=== PATIENT | male | born 1950 | race Caucasian/White ===

== ENCOUNTER 2016-06-28 20:19 | Inpatient (IN) ==
[2016-06-28] MEDS ORDERED: 0.9 % Sodium Chloride 500 ML IV ONE (20:42)
[2016-06-28] MEDS: 0.9 % Sodium Chloride 1,000 ML IVC SCH ×2 (20:51→21:40)
[2016-06-28 20:56] LABS: Bilirubin,Urine Moderate (Negative); Blood,Urine Moderate (Negative); Glucose,Urine (UA) Normal (Normal); Ketones,Urine Trace mg/dL (Negative); Leukocyte Esterase,Urine Small (Negative); Nitrite,Urine Negative (Negative); Protein,Urine 100 mg/dL (Neg-Trace); Specific Gravity,Urine 1.026 (1.010-1.025)
[2016-06-28 21:01] LABS: Clarity,Urine Hazy (Clear); Color,Urine Amber (Yellow)
[2016-06-28 21:10] LABS: RBC,Urine 50-100 per hpf (0-3)
[2016-06-28 21:12] LABS: Amorphous Sediment,Urine Many (Few); Bacteria,Urine Many per hpf (None-Few); Calcium Oxalate Crystals,Urine Present; Granular Casts,Urine Many per lpf (None Seen); Squamous Epithelial Cell,Urine None Seen per lpf (None-Few)
[2016-06-28 21:13] LABS: Mucus,Urine Moderate (Few)
[2016-06-28 21:26] LABS: ABG Base Excess 2.2 mEq/L (-2.0 to 3.0); ABG HCO3 27.3 mEQ/L (21-27); ABG Oxygen Saturation 95 % (95-98); ABG PCO2 44 mmHg (35-45); ABG PO2 76 mmHg (85-104); ABG TCO2 28.7 mEq/L (20-26); Blood Gas FiO2 36 %
[2016-06-28] MEDS ORDERED: Levofloxacin 500 MG/100 ML 500 MG/100 ML BAG IVPB ONE (21:53)
[2016-06-28] MEDS ORDERED: Piperacillin/Tazobactam 3.375 GM in D5% in Water (Mini-Bag+) 100 ML IVPB ONE (21:53)
[2016-06-28] MEDS ORDERED: Vancomycin 1,000 MG in D5% in Water 250 ML IV ONE (21:53)
--- NOTE | 2016-06-28 21:55 | Emergency Department Note ---
START Narrative - START START: I examined this patient and my medical decision-making was reviewed with the [employer] SPECIALIST/PA/Advanced Practice Nurse/Resident Physician. I agree with the documented findings, disposition and treatment plan as described except to the extent set forth below. Patient transferred from the [facility] for "sepsis and COPD". Patient is confused. Unclear if this is baseline. When asked when his symptoms started patient told me August. On exam he is awake alert in no distress. Lungs with diffuse wheezing. Abdomen soft. Diffuse scaling skin. Plan. Patient with low-grade temperature 99.4. Septic workup. A short infiltrates on his chest x-ray. Starting broad-spectrum antibiotics. Will admit.
[2016-06-28 22:04] LABS: Basophils % 0.1 %; Mean Corpuscular Hemoglobin 27.4 pg (28.0-33.3); Mean Corpuscular Volume 85.7 fL (83.0-100.0); Segmented Neutrophils % 84.2 %
[2016-06-28 22:05] LABS: Hematocrit 27.5 % (37.5-50.1); Hemoglobin 8.8 g/dL (12.9-16.9); Immature Granulocytes % 1.6 % (0-4); Lymphocytes # 1.4 K/mcL (0.6-4.6); Lymphocytes % 4.9 %; Mean Platelet Volume 11.3 fL (9.4-12.4); Monocytes # 2.6 K/mcL (0.0-1.3); Monocytes % 9.2 %; Neutrophils # 23.5 K/mcL (1.6-8.9); Platelet Count 293 K/mcL (140-400); Red Blood Count 3.21 M/mcL (4.19-5.50); Red Cell Distribution Width 15.6 % (11.5-14.5)
--- NOTE | 2016-06-28 22:14 | Emergency Department Note ---
Disposition Clinical Impression: Pulmonary vascular congestion, Elevated troponin Pneumonia Qualifiers: Pneumonia type: due to unspecified organism Laterality: left Lung location: unspecified part of lung Qualified Code(s): J18.9 - Pneumonia, unspecified organism Dyspnea Qualifiers: Dyspnea type: shortness of breath Qualified Code(s): R06.02 - Shortness of breath Anemia Qualifiers: Anemia type: unspecified type Qualified Code(s): D64.9 - Anemia, unspecified Disposition: Admitted As Inpatient Condition: Fair General Adult HPI - General Chief complaint: ED Shortness of Breath/Dyspnea Stated complaint: COPD exac Time Seen by Provider: 06/28/16 20:28 Source: patient, EMS Limitations: no limitations Nursing Notes Reviewed: Yes Vital Signs Reviewed: Yes - History of Present Illness HPI Narrative: 66-year-old male transferred from the [facility] with pneumonia, COPD exacerbation and sepsis. Patient has a psychiatric history and is a resident at the [facility]. He has a history of COPD and hyperlipidemia. He has reported cough, fever and leukocytosis. Patient does have some baseline cognitive impairment and cannot give much of an accurate history. He is resting comfortably in bed, calm and does not appear in any distress. He does not endorse any chest pain, abdominal pain, nausea or vomiting. He complains of some cough and exertional dyspnea but is otherwise comfortable. Pain Scale: 0 - Related Data Home Medications Medication Instructions Recorded Confirmed Albuterol Sulfate [Albuterol 2 puff IH Q6HR PRN 06/29/16 06/29/16 Inhaler] Atorvastatin Calcium [Lipitor] 20 mg PO DAILY 06/29/16 06/29/16 Bisacodyl [Dulcolax] 10 mg PO 3XW MDD mon,tues,fri 06/29/16 06/29/16 Budesonide/Formoterol 160/4.5 2 puff IH BIDR 06/29/16 06/29/16 [Symbicort 160/4.5] Cholecalciferol (D-3) [Vitamin D] 2,000 unit PO DAILY 06/29/16 06/29/16 CloZAPine [Clozaril] 300 mg PO HS 06/29/16 06/29/16 CloZAPine [Clozaril] 400 mg PO QAM 06/29/16 06/29/16 Docusate Sodium 100 mg PO BID 06/29/16 06/29/16 GuaiFENesin/Dextromethorphan [Eql 10 ml PO Q4H PRN 06/29/16 06/29/16 Tussin Dm Max Liquid] Guaifenesin [Guaifenesin] 200 mg PO QID 06/29/16 06/29/16 Lamotrigine [Lamictal] 75 mg PO BID 06/29/16 06/29/16 Loratadine [Allergy Relief] 10 mg PO DAILY 06/29/16 06/29/16 Multivitamin [One Daily Essential] 1 tab PO QAM 06/29/16 06/29/16 Oxazepam [Serax] 10 mg PO BID 06/29/16 06/29/16 Potassium Chloride [Klor-Con 10] 30 meq PO DAILY 06/29/16 06/29/16 Sertraline [Zoloft] 150 mg PO QAM 06/29/16 06/29/16 Tiotropium [Spiriva] 18 mcg IH DAILY 06/29/16 06/29/16 Allergies Allergy/AdvReac Type Severity Reaction Status Date / Time chlorpromazine AdvReac See Verified 06/28/16 20:23 Comments Ether AdvReac See Verified 06/28/16 20:23 Comments All systems ED: reviewed and negative except as stated. (Review of systems is very limited due to patient's baseline mental status) Cardiovascular: Reports: dyspnea on exertion. Denies: chest pain Respiratory: Reports: cough Gastrointestinal: Denies: abdominal pain, nausea, vomiting Musculoskeletal: Denies: back pain Neurological: Denies: headache, weakness, numbness Past Medical History - Past Medical History Medical history: Reports: COPD, hyperlipidemia, other Psychiatric history: Reports: schizophrenia - Social History Smoking Status: Former smoker Smokeless Tobacco Status: No Alcohol use: Reports: none Drug use: Reports: none Physical Exam General: Resting comfortably in bed, occasional coughing, no distress, awake and alert Cardiovascular: Tachycardia S1, S2. No murmurs, rubs or gallops. Respiratory: Bilateral rhonchi on exam with end expiratory wheezing. Occasional coarse cough but no respiratory distress. Abdomen: Soft, nontender. No guarding, rebound or rigidity. Eyes: Conjunctiva clear without any scleral icterus HENT: Normocephalic, no signs of head injury. No oral mucosal lesions. Moist mucous membranes Neuro: Cranial nerves intact. No motor or sensory deficit. Musculoskeletal: There is no redness, swelling, edema, tenderness, asymmetry, pain along the venous system or any other sign of DVT. Skin: No lesions. No diaphoresis. Normal turgor. Normal color Psych: Appropriate - General Limitations: no limitations General appearance: alert, in no apparent distress Course Course Narrative: Presents to the emergency department from the [facility] where he is a permanent resident with COPD exacerbation, pneumonia and sepsis. He had a reported fever of 100.3 with a leukocytosis at 25.6. On exam he is awake, alert and pleasant. He is tachycardic, afebrile and blood pressure has been stable. O2 stable on 2 L nasal cannula. We did get a chest x-ray which shows right mid and lower lung pneumonia. He also has some evidence of pulmonary vascular congestion on his chest x-ray and his BNP is slightly elevated. Troponin elevated at 0.04 and I feel is due to strain rather than acute coronary syndrome. Plan to treat for his pneumonia. Patient having no active chest discomfort. Patient was started on broad-spectrum antibiotics in the emergency Department for healthcare associated pneumonia. Plan to admit to the hospitalist for further management. Patient will be admitted for HCAP and elevated troponin. His hemoglobin was low at 8.9. No signs of bleeding but I did do a rectal exam which showed brown stool and the Hemoccult was sent down for testing. I discussed with the on-call hospitalist, Dr. Yamile villagomez accepts for admission, no further orders at this time Vital Signs Temperature 99.4 F 06/28/16 20:24 Pulse Rate 107 06/28/16 20:24 Respiratory Rate 25 06/28/16 20:24 Blood Pressure 115/68 06/28/16 20:24 O2 Sat by Pulse Oximetry 92 L 06/28/16 20:24 Temperature 97.8 F 06/30/16 15:08 Pulse Rate 113 06/30/16 15:08 Respiratory Rate 16 06/30/16 15:19 Blood Pressure 118/71 06/30/16 15:19 O2 Sat by Pulse Oximetry 92 L 06/30/16 15:19 Oxygen Delivery Oxygen Delivery Nasal Cannula Medical Decision Making - Lab Data Result diagrams: 06/30/16 05:03 06/30/16 05:03 Lab Results 06/28/16 06/28/16 06/28/16 Range/Units 20:50 21:18 21:37 WBC 27.9 H (4.3-11.1) K/mcL RBC 3.21 L (4.19-5.50) M/mcL Hgb 8.8 L (12.9-16.9) g/dL Hct 27.5 L (37.5-50.1) % MCV 85.7 (83.0-100.0) fL MCH 27.4 L (28.0-33.3) pg MCHC 32.0 (31.6-35.5) g/dL RDW 15.6 H (11.5-14.5) % Plt Count 293 (140-400) K/mcL MPV 11.3 (9.4-12.4) fL Immature Gran % 1.6 (0-4) % Seg Neutrophils % 84.2 % Lymphocytes % 4.9 % Monocytes % 9.2 % Eosinophils % 0.0 % Basophils % 0.1 % Neutrophils # 23.5 H (1.6-8.9) K/mcL Lymphocytes # 1.4 (0.6-4.6) K/mcL Monocytes # 2.6 H (0.0-1.3) K/mcL Eosinophils # 0.0 (0.0-0.6) K/mcL Basophils # 0.0 (0.0-0.2) K/mcL Toxic Granulation Present A (Not Present) Platelet Estimate Normal (Normal) Immature Plt Fraction (1.1-6.1) % PT (9.4-12.1) Seconds INR APTT (26.0-36.0) Seconds ABG pH 7.40 (7.32-7.45) pH Units ABG pCO2 44 (35-45) mmHg ABG pO2 76 L (85-104) mmHg ABG HCO3 27.3 H (21-27) mEQ/L ABG Total CO2 28.7 H (20-26) mEq/L ABG O2 Saturation 95 (95-98) % ABG Base Excess 2.2 (-2.0 to 3.0) mEq/L Blood Gas Modality [place] Inspired O2 36 % Sodium (136-145) mEq/L Potassium (3.5-4.5) mEq/L Chloride (98-109) mEq/L Carbon Dioxide (19-29) mEq/L BUN (8-26) mg/dL Creatinine (0.72-1.25) mg/dL Est GFR ( Amer) (> 60) Est GFR (Non-Af Amer) (> 60) BUN/Creatinine Ratio (6-26) Glucose (70-99) mg/dL Calculated Osmolality (280-300) Lactic Acid (0.5-2.2) mmol/L Calcium (8.6-10.8) mg/dL Phosphorus (2.3-4.7) mg/dL Magnesium (1.6-2.6) mg/dL Iron (65-175) mcg/dL % Saturation (20-55) % Transferrin (174-364) mg/dL Total Bilirubin (0.2-1.2) mg/dL Direct Bilirubin (0.0-0.5) mg/dL Indirect Bilirubin (0.0-1.2) mg/dL AST (5-34) Units/L ALT (0-55) Units/L Alkaline Phosphatase (38-126) Units/L Troponin I (0-0.03) ng/mL B-Natriuretic Peptide (0-100) pg/mL Serum Total Protein (6.0-8.3) g/dL Albumin (3.5-5.0) g/dL Globulin (2.4-3.5) g/dL Albumin/Globulin Ratio (1.1-2.2) Lipase (8-78) Units/L Vitamin B12 (213-816) pg/mL Folate (7.0-31.4) ng/mL Urine Color [place] A (Yellow) Urine Clarity Hazy (Clear) Urine pH 6.0 (5.0-8.0) pH Units Ur Specific [place] 1.026 H (1.010-1.025) Urine Protein 100 H (Neg-Trace) mg/dL Urine Glucose (UA) Normal (Normal) mg/dL Urine Ketones Trace H (Negative) mg/dL Urine Blood Moderate H (Negative) Urine Nitrite Negative (Negative) Urine Bilirubin Moderate H (Negative) Urine Urobilinogen 2.0 H (Normal) mg/dL Ur Leukocyte Esterase Small H (Negative) Urine Microscopic RBC 50-100 H (0-3) per hpf Urine Microscopic WBC 5-15 H (0-3) per hpf Ur Squamous Epith Cells None Seen (None-Few) per lpf Calcium Oxalate Crystal Present Amorphous Sediment Many H (Few) Urine Bacteria Many H (None-Few) per hpf Granular Casts Many H (None Seen) per lpf Urine Mucus Moderate H (Few) Ur Culture Indicated? YES A (NO) Vancomycin Trough (10-20) mcg/mL 06/28/16 06/28/16 06/28/16 Range/Units 21:37 21:37 21:37 WBC (4.3-11.1) K/mcL RBC (4.19-5.50) M/mcL Hgb (12.9-16.9) g/dL Hct (37.5-50.1) % MCV (83.0-100.0) fL MCH (28.0-33.3) pg MCHC (31.6-35.5) g/dL RDW (11.5-14.5) % Plt Count (140-400) K/mcL MPV (9.4-12.4) fL Immature Gran % (0-4) % Seg Neutrophils % % Lymphocytes % % Monocytes % % Eosinophils % % Basophils % % Neutrophils # (1.6-8.9) K/mcL Lymphocytes # (0.6-4.6) K/mcL Monocytes # (0.0-1.3) K/mcL Eosinophils # (0.0-0.6) K/mcL Basophils # (0.0-0.2) K/mcL Toxic Granulation (Not Present) Platelet Estimate (Normal) Immature Plt Fraction (1.1-6.1) % PT 14.7 H (9.4-12.1) Seconds INR 1.4 APTT 31.6 (26.0-36.0) Seconds ABG pH (7.32-7.45) pH Units ABG pCO2 (35-45) mmHg ABG pO2 (85-104) mmHg ABG HCO3 (21-27) mEQ/L ABG Total CO2 (20-26) mEq/L ABG O2 Saturation (95-98) % ABG Base Excess (-2.0 to 3.0) mEq/L Blood Gas Modality Inspired O2 % Sodium 140 (136-145) mEq/L Potassium 3.4 L (3.5-4.5) mEq/L Chloride 106 (98-109) mEq/L Carbon Dioxide 24 (19-29) mEq/L BUN 31 H (8-26) mg/dL Creatinine 1.31 H (0.72-1.25) mg/dL Est GFR ( Amer) > 60 (> 60) Est GFR (Non-Af Amer) 55 L (> 60) BUN/Creatinine Ratio 24 (6-26) Glucose 109 H (70-99) mg/dL Calculated Osmolality 297 (280-300) Lactic Acid (0.5-2.2) mmol/L Calcium 8.3 L (8.6-10.8) mg/dL Phosphorus 3.4 (2.3-4.7) mg/dL Magnesium 1.8 (1.6-2.6) mg/dL Iron (65-175) mcg/dL % Saturation (20-55) % Transferrin (174-364) mg/dL Total Bilirubin 0.6 (0.2-1.2) mg/dL Direct Bilirubin 0.4 (0.0-0.5) mg/dL Indirect Bilirubin 0.2 (0.0-1.2) mg/dL AST 32 (5-34) Units/L ALT 20 (0-55) Units/L Alkaline Phosphatase 112 (38-126) Units/L Troponin I 0.04 H* (0-0.03) ng/mL B-Natriuretic Peptide (0-100) pg/mL Serum Total Protein 6.1 (6.0-8.3) g/dL Albumin 2.1 L (3.5-5.0) g/dL Globulin 4.0 H (2.4-3.5) g/dL Albumin/Globulin Ratio 0.5 L (1.1-2.2) Lipase 10 (8-78) Units/L Vitamin B12 (213-816) pg/mL Folate (7.0-31.4) ng/mL Urine Color (Yellow) Urine Clarity (Clear) Urine pH (5.0-8.0) pH Units Ur Specific [place] (1.010-1.025) Urine Protein (Neg-Trace) mg/dL Urine Glucose (UA) (Normal) mg/dL Urine Ketones (Negative) mg/dL Urine Blood (Negative) Urine Nitrite (Negative) Urine Bilirubin (Negative) Urine Urobilinogen (Normal) mg/dL Ur Leukocyte Esterase (Negative) Urine Microscopic RBC (0-3) per hpf Urine Microscopic WBC (0-3) per hpf Ur Squamous Epith Cells (None-Few) per lpf Calcium Oxalate Crystal Amorphous Sediment (Few) Urine Bacteria (None-Few) per hpf Granular Casts (None Seen) per lpf Urine Mucus (Few) Ur Culture Indicated? (NO) Vancomycin Trough (10-20) mcg/mL 06/28/16 06/28/16 06/28/16 Range/Units 21:37 21:53 23:35 WBC (4.3-11.1) K/mcL RBC (4.19-5.50) M/mcL Hgb (12.9-16.9) g/dL Hct (37.5-50.1) % MCV (83.0-100.0) fL MCH (28.0-33.3) pg MCHC (31.6-35.5) g/dL RDW (11.5-14.5) % Plt Count (140-400) K/mcL MPV (9.4-12.4) fL Immature Gran % (0-4) % Seg Neutrophils % % Lymphocytes % % Monocytes % % Eosinophils % % Basophils % % Neutrophils # (1.6-8.9) K/mcL Lymphocytes # (0.6-4.6) K/mcL Monocytes # (0.0-1.3) K/mcL Eosinophils # (0.0-0.6) K/mcL Basophils # (0.0-0.2) K/mcL Toxic Granulation (Not Present) Platelet Estimate (Normal) Immature Plt Fraction (1.1-6.1) % PT (9.4-12.1) Seconds INR APTT (26.0-36.0) Seconds ABG pH (7.32-7.45) pH Units ABG pCO2 (35-45) mmHg ABG pO2 (85-104) mmHg ABG HCO3 (21-27) mEQ/L ABG Total CO2 (20-26) mEq/L ABG O2 Saturation (95-98) % ABG Base Excess (-2.0 to 3.0) mEq/L Blood Gas Modality Inspired O2 % Sodium (136-145) mEq/L Potassium (3.5-4.5) mEq/L Chloride (98-109) mEq/L Carbon Dioxide (19-29) mEq/L BUN (8-26) mg/dL Creatinine (0.72-1.25) mg/dL Est GFR ( Amer) (> 60) Est GFR (Non-Af Amer) (> 60) BUN/Creatinine Ratio (6-26) Glucose (70-99) mg/dL Calculated Osmolality (280-300) Lactic Acid 0.9 0.8 (0.5-2.2) mmol/L Calcium (8.6-10.8) mg/dL Phosphorus (2.3-4.7) mg/dL Magnesium (1.6-2.6) mg/dL Iron (65-175) mcg/dL % Saturation (20-55) % Transferrin (174-364) mg/dL Total Bilirubin (0.2-1.2) mg/dL Direct Bilirubin (0.0-0.5) mg/dL Indirect Bilirubin (0.0-1.2) mg/dL AST (5-34) Units/L ALT (0-55) Units/L Alkaline Phosphatase (38-126) Units/L Troponin I (0-0.03) ng/mL B-Natriuretic Peptide 128 H (0-100) pg/mL Serum Total Protein (6.0-8.3) g/dL Albumin (3.5-5.0) g/dL Globulin (2.4-3.5) g/dL Albumin/Globulin Ratio (1.1-2.2) Lipase (8-78) Units/L Vitamin B12 (213-816) pg/mL Folate (7.0-31.4) ng/mL Urine Color (Yellow) Urine Clarity (Clear) Urine pH (5.0-8.0) pH Units Ur Specific [place] (1.010-1.025) Urine Protein (Neg-Trace) mg/dL Urine Glucose (UA) (Normal) mg/dL Urine Ketones (Negative) mg/dL Urine Blood (Negative) Urine Nitrite (Negative) Urine Bilirubin (Negative) Urine Urobilinogen (Normal) mg/dL Ur Leukocyte Esterase (Negative) Urine Microscopic RBC (0-3) per hpf Urine Microscopic WBC (0-3) per hpf Ur Squamous Epith Cells (None-Few) per lpf Calcium Oxalate Crystal Amorphous Sediment (Few) Urine Bacteria (None-Few) per hpf Granular Casts (None Seen) per lpf Urine Mucus (Few) Ur Culture Indicated? (NO) Vancomycin Trough (10-20) mcg/mL 06/29/16 06/29/16 06/29/16 Range/Units 02:52 02:52 02:52 WBC 24.5 H (4.3-11.1) K/mcL RBC 3.20 L (4.19-5.50) M/mcL Hgb 8.6 L (12.9-16.9) g/dL Hct 27.6 L (37.5-50.1) % MCV 86.3 (83.0-100.0) fL MCH 26.9 L (28.0-33.3) pg MCHC 31.2 L (31.6-35.5) g/dL RDW 15.9 H (11.5-14.5) % Plt Count 270 (140-400) K/mcL MPV 11.0 (9.4-12.4) fL Immature Gran % 1.0 (0-4) % Seg Neutrophils % 82.9 % Lymphocytes % 7.1 % Monocytes % 8.8 % Eosinophils % 0.0 % Basophils % 0.2 % Neutrophils # 20.3 H (1.6-8.9) K/mcL Lymphocytes # 1.7 (0.6-4.6) K/mcL Monocytes # 2.2 H (0.0-1.3) K/mcL Eosinophils # 0.0 (0.0-0.6) K/mcL Basophils # 0.1 (0.0-0.2) K/mcL Toxic Granulation Present A (Not Present) Platelet Estimate Normal (Normal) Immature Plt Fraction 5.4 (1.1-6.1) % PT (9.4-12.1) Seconds INR APTT (26.0-36.0) Seconds ABG pH (7.32-7.45) pH Units ABG pCO2 (35-45) mmHg ABG pO2 (85-104) mmHg ABG HCO3 (21-27) mEQ/L ABG Total CO2 (20-26) mEq/L ABG O2 Saturation (95-98) % ABG Base Excess (-2.0 to 3.0) mEq/L Blood Gas Modality Inspired O2 % Sodium 143 (136-145) mEq/L Potassium 3.4 L (3.5-4.5) mEq/L Chloride 111 H (98-109) mEq/L Carbon Dioxide 24 (19-29) mEq/L BUN 24 (8-26) mg/dL Creatinine 1.05 (0.72-1.25) mg/dL Est GFR ( Amer) > 60 (> 60) Est GFR (Non-Af Amer) > 60 (> 60) BUN/Creatinine Ratio 23 (6-26) Glucose 102 H (70-99) mg/dL Calculated Osmolality 300 (280-300) Lactic Acid (0.5-2.2) mmol/L Calcium 8.0 L (8.6-10.8) mg/dL Phosphorus (2.3-4.7) mg/dL Magnesium (1.6-2.6) mg/dL Iron (65-175) mcg/dL % Saturation (20-55) % Transferrin (174-364) mg/dL Total Bilirubin (0.2-1.2) mg/dL Direct Bilirubin (0.0-0.5) mg/dL Indirect Bilirubin (0.0-1.2) mg/dL AST (5-34) Units/L ALT (0-55) Units/L Alkaline Phosphatase (38-126) Units/L Troponin I 0.02 (0-0.03) ng/mL B-Natriuretic Peptide (0-100) pg/mL Serum Total Protein (6.0-8.3) g/dL Albumin (3.5-5.0) g/dL Globulin (2.4-3.5) g/dL Albumin/Globulin Ratio (1.1-2.2) Lipase (8-78) Units/L Vitamin B12 (213-816) pg/mL Folate (7.0-31.4) ng/mL Urine Color (Yellow) Urine Clarity (Clear) Urine pH (5.0-8.0) pH Units Ur Specific [place] (1.010-1.025) Urine Protein (Neg-Trace) mg/dL Urine Glucose (UA) (Normal) mg/dL Urine Ketones (Negative) mg/dL Urine Blood (Negative) Urine Nitrite (Negative) Urine Bilirubin (Negative) Urine Urobilinogen (Normal) mg/dL Ur Leukocyte Esterase (Negative) Urine Microscopic RBC (0-3) per hpf Urine Microscopic WBC (0-3) per hpf Ur Squamous Epith Cells (None-Few) per lpf Calcium Oxalate Crystal Amorphous Sediment (Few) Urine Bacteria (None-Few) per hpf Granular Casts (None Seen) per lpf Urine Mucus (Few) Ur Culture Indicated? (NO) Vancomycin Trough (10-20) mcg/mL 06/29/16 06/29/16 06/29/16 Range/Units 02:52 02:52 02:52 WBC (4.3-11.1) K/mcL RBC (4.19-5.50) M/mcL Hgb (12.9-16.9) g/dL Hct (37.5-50.1) % MCV (83.0-100.0) fL MCH (28.0-33.3) pg MCHC (31.6-35.5) g/dL RDW (11.5-14.5) % Plt Count (140-400) K/mcL MPV (9.4-12.4) fL Immature Gran % (0-4) % Seg Neutrophils % % Lymphocytes % % Monocytes % % Eosinophils % % Basophils % % Neutrophils # (1.6-8.9) K/mcL Lymphocytes # (0.6-4.6) K/mcL Monocytes # (0.0-1.3) K/mcL Eosinophils # (0.0-0.6) K/mcL Basophils # (0.0-0.2) K/mcL Toxic Granulation (Not Present) Platelet Estimate (Normal) Immature Plt Fraction (1.1-6.1) % PT (9.4-12.1) Seconds INR APTT (26.0-36.0) Seconds ABG pH (7.32-7.45) pH Units ABG pCO2 (35-45) mmHg ABG pO2 (85-104) mmHg ABG HCO3 (21-27) mEQ/L ABG Total CO2 (20-26) mEq/L ABG O2 Saturation (95-98) % ABG Base Excess (-2.0 to 3.0) mEq/L Blood Gas Modality Inspired O2 % Sodium (136-145) mEq/L Potassium (3.5-4.5) mEq/L Chloride (98-109) mEq/L Carbon Dioxide (19-29) mEq/L BUN (8-26) mg/dL Creatinine (0.72-1.25) mg/dL Est GFR ( Amer) (> 60) Est GFR (Non-Af Amer) (> 60) BUN/Creatinine Ratio (6-26) Glucose (70-99) mg/dL Calculated Osmolality (280-300) Lactic Acid (0.5-2.2) mmol/L Calcium (8.6-10.8) mg/dL Phosphorus (2.3-4.7) mg/dL Magnesium (1.6-2.6) mg/dL Iron 9 L (65-175) mcg/dL % Saturation 4 L (20-55) % Transferrin 143 L (174-364) mg/dL Total Bilirubin (0.2-1.2) mg/dL Direct Bilirubin (0.0-0.5) mg/dL Indirect Bilirubin (0.0-1.2) mg/dL AST (5-34) Units/L ALT (0-55) Units/L Alkaline Phosphatase (38-126) Units/L Troponin I (0-0.03) ng/mL B-Natriuretic Peptide (0-100) pg/mL Serum Total Protein (6.0-8.3) g/dL Albumin (3.5-5.0) g/dL Globulin (2.4-3.5) g/dL Albumin/Globulin Ratio (1.1-2.2) Lipase (8-78) Units/L Vitamin B12 869 H (213-816) pg/mL Folate 11.8 (7.0-31.4) ng/mL Urine Color (Yellow) Urine Clarity (Clear) Urine pH (5.0-8.0) pH Units Ur Specific [place] (1.010-1.025) Urine Protein (Neg-Trace) mg/dL Urine Glucose (UA) (Normal) mg/dL Urine Ketones (Negative) mg/dL Urine Blood (Negative) Urine Nitrite (Negative) Urine Bilirubin (Negative) Urine Urobilinogen (Normal) mg/dL Ur Leukocyte Esterase (Negative) Urine Microscopic RBC (0-3) per hpf Urine Microscopic WBC (0-3) per hpf Ur Squamous Epith Cells (None-Few) per lpf Calcium Oxalate Crystal Amorphous Sediment (Few) Urine Bacteria (None-Few) per hpf Granular Casts (None Seen) per lpf Urine Mucus (Few) Ur Culture Indicated? (NO) Vancomycin Trough 18.1 (10-20) mcg/mL - EKG Data EKG #1 EKG results narrative: EKG shows sinus tachycardia with a rate of 108 bpm. There is no ST elevation or depression. NM, QRS, QT interval within normal limits. Normal R-wave progression. Normal axis. Critical Care Time Critical Care Time: Yes Total Critical Care Time: 30 Attestation: Critical care performed: Time is exclusive of separately billable procedures. Time includes: direct patient care, patient reassessment, coordination of patient care, interpretation of data (laboratory data, radiology data, and respiratory data), review of patient's medical records, medical consultation and documentation of patient care. Procedures included in critical care time: Procedures excluded from critical care time:
[2016-06-28 22:15] LABS: INR 1.4; Prothrombin Time 14.7 Seconds (9.4-12.1)
[2016-06-28 22:18] LABS: Activated Partial Thrombo Time 31.6 Seconds (26.0-36.0)
[2016-06-28 22:22] LABS: Alanine Aminotransferase 20 Units/L (0-55); Albumin 2.1 g/dL (3.5-5.0); Albumin/Globulin Ratio 0.5 (1.1-2.2); Alkaline Phosphatase 112 Units/L (38-126); Aspartate Amino Transferase 32 Units/L (5-34); BUN/Creatinine Ratio 24 (6-26); Bilirubin,Direct 0.4 mg/dL (0.0-0.5); Bilirubin,Indirect 0.2 mg/dL (0.0-1.2); Bilirubin,Total 0.6 mg/dL (0.2-1.2); Blood Urea Nitrogen 31 mg/dL (8-26); Calcium 8.3 mg/dL (8.6-10.8); Carbon Dioxide 24 mEq/L (19-29); Chloride 106 mEq/L (98-109); Glucose 109 mg/dL (70-99); Lipase 10 Units/L (8-78); Magnesium 1.8 mg/dL (1.6-2.6); Osmolality,Calculated 297 (280-300); Phosphorous 3.4 mg/dL (2.3-4.7); Potassium 3.4 mEq/L (3.5-4.5); Sodium 140 mEq/L (136-145); Total Protein 6.1 g/dL (6.0-8.3); eGFR For African Americans > 60 (> 60); eGFR For Non-African Americans 55 (> 60)
[2016-06-28 22:25] LABS: Platelet Estimate Normal (Normal); Toxic Granulation Present (Not Present)
[2016-06-29] MEDS ORDERED: Acetaminophen 325 MG TABLET PO PRN (01:46)
[2016-06-29] MEDS ORDERED: Naloxone 0.4 MG/ML INJ IVP PRN (01:46)
[2016-06-29] MEDS ORDERED: Vancomycin 1,250 MG in D5% in Water 250 ML IVPB SCH (02:00)
[2016-06-29] MEDS ORDERED: 0.9 % Sodium Chloride 1,000 ML IVC SCH (02:00)
--- NOTE | 2016-06-29 02:09 | Internal Med History&Physical ---
Date of Encounter: 06/29/16 Time of Encounter: 02:02 Assessment and Plan (1) Healthcare associated bacterial pneumonia Current visit: Yes Status: Acute Patient presents with worsening cough and SOB, fever 100.3, WBC 27.9. Lives at the [facility]. CXR showed infiltrates in the right mid and right lower lobe consistent with pneumonia. fluid bolus of 2L given Continue Vancomycin, Zosyn and Levaquin for HCAP continuous IV fluids of 0.9NS at 75mL/hr duoneb treatments QID albuterol nebulizer Q2h PRN titrate O2 to maintain saturation > 92% (2) Sepsis Current visit: Yes Status: Acute Patient with pneumonia and SIRs criteria of WBC count of 27.9, tachycardia to 108, RR elevated at times as well. blood cultures drawn in ED 2L fluid bolus given in ED Lactate drawn and was 0.9, redraw 0.8 Qualifiers: Sepsis type: sepsis due to unspecified organism Qualified Code(s): A41.9 - Sepsis, unspecified organism (3) Acute exacerbation of chronic obstructive pulmonary disease (COPD) Current visit: Yes Status: Acute Worsening cough and SOB, history of COPD Duoneb treatments QID Albuterol nebulizer Q2 BID titrate O2 to maintain O2 saturation > 92% Will hold off on steroids due to infection continue home budesonide/formoterol (4) Elevated troponin Current visit: Yes Status: Acute Troponin 0.04. Patient denies any chest pain. EKG showed sinus tachycardia. Low suspicion for NM, but will trend troponins. (5) Anemia Current visit: Yes Status: Acute Patient with hgb of 8.8. No reports or evidence of bleeding. Hemoccult sent by ED. Will recheck CBC and get iron studies, B12 and folate with AM labs Qualifiers: Anemia type: unspecified type Qualified Code(s): D64.9 - Anemia, unspecified (6) UTI (urinary tract infection) Current visit: Yes Status: Acute UA suspicious for UTI, patient denies any dysuria. Patient on broad coverage antibiotics with Vanc, Zosyn and Levaquin for PNA. Await urine results. Qualifiers: Urinary tract infection type: site unspecified Hematuria presence: with hematuria Qualified Code(s): N39.0 - Urinary tract infection, site not specified; R31.9 - Hematuria, unspecified (7) DVT prophylaxis Current visit: Yes Status: Acute encourage ambulation antiembolic stockings heparin 5,000us SQ BID Internal Medicine - H&P: HPI Chief complaint: shortness of breath Admitted From: Emergency Dept Plans for Post Hospital Care: Home History of present illness: Mr. Leonard is a 66 year old male with history of COPD, hyperlipidemia, schizophrenia who came to the emergency department from the [facility] with shortness of breath cough. He reports the cough is chronic but has been worsening over the past several days and is now productive. He reports worsening shortness of breath over the last couple days as well. He is a poor historian and it is difficult to get an accurate story form him. Evaluation was significant for fever of 100.3, WBC 27.9, tachycardia with HR 108, lactic acid was 0.9, with recheck o f 0.8. CXR showed right mid and left lower lobe pneumonias. The ED initiated him on broad-spectrum antibiotics for HCAP. On assessement, he is alert and oriented, appears comfortable. He is satting 96% on 4L NC. Heart is slightly tachycardic to 103. Lungs with diffuse wheezing and rales. Past Med Surg Social Fam HX - Past Medical History Medical history: COPD, hyperlipidemia, other Psychiatric history: schizophrenia - Social History Smoking Status: Former smoker Smokeless Tobacco Status: No Alcohol use: none Drug use: none Internal Medicine - H&P: Meds Albuterol Sulfate [Albuterol Inhaler] 2 puff IH Q6HR PRN 06/29/16 [History] Atorvastatin Calcium [Lipitor] 20 mg PO 06/29/16 [History] Bisacodyl [Dulcolax] 10 mg PO DAILY 06/29/16 [History] Budesonide/Formoterol 160/4.5 [Symbicort 160/4.5] 2 puff IH BIDR 06/29/16 [ History] Cholecalciferol (D-3) [Vitamin D] 2,000 unit PO DAILY 06/29/16 [History] CloZAPine [Clozaril] 100 mg PO 06/29/16 [History] Docusate Sodium 100 mg PO 06/29/16 [History] Guaifenesin [Guaifenesin] 06/29/16 [History] Lamotrigine [Lamictal] 06/29/16 [History] Loratadine [Allergy Relief] 10 mg PO 06/29/16 [History] Multivitamin [One Daily Essential] 1 each PO 06/29/16 [History] Omeprazole 20 mg PO 06/29/16 [History] Potassium Chloride [Klor-Con 10] 30 meq PO DAILY 06/29/16 [History] Sertraline [Zoloft] 150 mg PO DAILY 06/29/16 [History] Tiotropium [Spiriva] 18 mcg IH DAILY 06/29/16 [History] Allergies chlorpromazine Adverse Reaction (Verified 06/28/16 20:23) See Comments Ether Adverse Reaction (Verified 06/28/16 20:23) See Comments ROS unobtainable: due to mental status All Systems PM: A 10-system review of systems was performed and is negative for pertinent findings except as documented above in the HPI. - Constitutional Vitals: Temp Pulse Resp BP Pulse Ox 97.7 F 95 20 97/64 95 06/29/16 01:47 06/29/16 01:47 06/29/16 01:47 06/29/16 01:47 06/29/16 01:47 General appearance: Present: A&O X 3, no acute distress - Head Head exam: Present: atraumatic, normocephalic - Eye Eye exam: Present: PERRL, conjuntiva pink, sclera anicteric Pupils: Present: PERRL - Neck Neck exam general surgery: Present: supple, trachea midline. Absent: lymphadenopathy - Respiratory Respiratory exam: Present: rales, wheezes. Absent: accessory muscle use, respiratory distress, tachypnea - Cardiovascular Cardiovascular exam: Present: +S1, +S2, tachycardia. Absent: diastolic murmur, gallop, rubs, systolic murmur - GI/Abdominal GI/Abdominal exam: Present: normal bowel sounds, soft, no peritoneal signs. Absent: distended, tenderness - Extremities Exam Extremities exam: Present: warm, radial pulses palpable and symetrical. Absent : calf tenderness, cyanotic, pedal edema - Neurological Exam Neurological exam: Present: CN II-XII intact, oriented X3, no focal deficits. Absent: facial droop, speech deficit - Skin Skin exam: Present: dry, intact Internal Med - H&P Results - Labs CBC & Chem 7: 06/28/16 21:37 06/28/16 21:37 Labs: Cardiac Enzymes 06/28/16 06/28/16 06/28/16 Range/Units 21:37 21:37 21:37 AST 32 (5-34) Units/L Troponin I 0.04 H* (0-0.03) ng/mL B-Natriuretic Peptide 128 H (0-100) pg/mL Coagulation 06/28/16 06/28/16 Range/Units 21:37 21:37 PT 14.7 H (9.4-12.1) Seconds APTT 31.6 (26.0-36.0) Seconds B-Natriuretic Peptide 128 H (0-100) pg/mL CBC 06/28/16 Range/Units 21:37 WBC 27.9 H (4.3-11.1) K/mcL RBC 3.21 L (4.19-5.50) M/mcL Hgb 8.8 L (12.9-16.9) g/dL Hct 27.5 L (37.5-50.1) % Plt Count 293 (140-400) K/mcL Comprehensive Metabolic Panel 06/28/16 Range/Units 21:37 Sodium 140 (136-145) mEq/L Potassium 3.4 L (3.5-4.5) mEq/L Chloride 106 (98-109) mEq/L Carbon Dioxide 24 (19-29) mEq/L BUN 31 H (8-26) mg/dL Creatinine 1.31 H (0.72-1.25) mg/dL Glucose 109 H (70-99) mg/dL Calcium 8.3 L (8.6-10.8) mg/dL Direct Bilirubin 0.4 (0.0-0.5) mg/dL Indirect Bilirubin 0.2 (0.0-1.2) mg/dL AST 32 (5-34) Units/L ALT 20 (0-55) Units/L Alkaline Phosphatase 112 (38-126) Units/L Albumin 2.1 L (3.5-5.0) g/dL
[2016-06-29 03:00] LABS: Basophils % 0.2 %; Hematocrit 27.6 % (37.5-50.1); Hemoglobin 8.6 g/dL (12.9-16.9); Immature Platelets 5.4 % (1.1-6.1); Lymphocytes # 1.7 K/mcL (0.6-4.6); Lymphocytes % 7.1 %; Mean Corpuscular HGB Conc 31.2 g/dL (31.6-35.5); Mean Corpuscular Hemoglobin 26.9 pg (28.0-33.3); Mean Corpuscular Volume 86.3 fL (83.0-100.0); Monocytes # 2.2 K/mcL (0.0-1.3); Monocytes % 8.8 %; Neutrophils # 20.3 K/mcL (1.6-8.9); Platelet Count 270 K/mcL (140-400); Red Cell Distribution Width 15.9 % (11.5-14.5); Segmented Neutrophils % 82.9 %
[2016-06-29 03:04] LABS: Basophils # 0.1 K/mcL (0.0-0.2)
[2016-06-29] MEDS: Budesonide/Formoterol 160/4.5 MDI IH SCH ×3 (03:08→21:55)
[2016-06-29] MEDS: Ipratropium/Albuterol Neb 3 ML IH SCH ×5 (03:08→21:55)
[2016-06-29 03:12] LABS: BUN/Creatinine Ratio 23 (6-26); Blood Urea Nitrogen 24 mg/dL (8-26); Carbon Dioxide 24 mEq/L (19-29); Chloride 111 mEq/L (98-109); Glucose 102 mg/dL (70-99); Osmolality,Calculated 300 (280-300); Potassium 3.4 mEq/L (3.5-4.5); Sodium 143 mEq/L (136-145); eGFR For African Americans > 60 (> 60); eGFR For Non-African Americans > 60 (> 60)
[2016-06-29 03:35] LABS: Platelet Estimate Normal (Normal)
[2016-06-29 03:37] LABS: Toxic Granulation Present (Not Present)
[2016-06-29 04:18] LABS: Folate 11.8 ng/mL (7.0-31.4)
[2016-06-29 04:56] LABS: % Iron Saturation 4 % (20-55); Iron 9 mcg/dL (65-175); Transferrin 143 mg/dL (174-364)
[2016-06-29] MEDS: *HR* Heparin 5,000 UNIT/ML VIAL SQ SCH ×2 (05:41→18:05)
--- NOTE | 2016-06-29 09:07 | Internal Med Progress Note ---
<Rigoberto Mazariegos Matt - Last Filed: 06/29/16 15:42> Date of Encounter: 06/29/16 - Assessment and plan (1) Sepsis Current Visit: Yes Status: Acute Assessment and plan: 2/2 HCAP Resident of the [facility] WBC 24.5, Resp 30, HR 97, BP 106/63 2L fluid bolus given in ED lactate 0.8, 0.9 Continue NS IVF 125 ml/hr blood cx pending monitor vitals and labs Continue Vanc, Zosyn, and Levoflaxacin Chest X-Ray 06/28/16 20:31 IMPRESSION: 1. There are infiltrates noted in the right mid and lower lung field, concerning for pneumonia. 2. There are areas of interstitial thickening in the lungs bilaterally which may be related to underlying interstitial lung disease versus pulmonary vascular congestion. D/ / 06/28/2016 21:45:28 Jose Rhoades MD / merari Interpreting Provider: Jose Rhoades MD Qualifiers: Sepsis type: sepsis due to unspecified organism Qualified Code(s): A41.9 - Sepsis, unspecified organism (2) Healthcare associated bacterial pneumonia Current Visit: Yes Status: Acute Assessment and plan: Patient lives at the [facility]. CXR showed infiltrates in the right mid and right lower lobe consistent with pneumonia. Right lung rales auscultated Vancomycin, Zosyn and Levaquin for HCAP continuous IV fluids of 0.9NS at 125mL/hr duoneb treatments QID albuterol nebulizer Q2h PRN titrate O2 to maintain saturation > 92% blood cx pending vanc trough 18.1 Chest X-Ray 06/28/16 20:31 IMPRESSION: 1. There are infiltrates noted in the right mid and lower lung field, concerning for pneumonia. 2. There are areas of interstitial thickening in the lungs bilaterally which may be related to underlying interstitial lung disease versus pulmonary vascular congestion. D/ / 06/28/2016 21:45:28 oJse Rhoades MD / merari Interpreting Provider: Jose Rhoades MD (3) Acute respiratory failure with hypoxia Current Visit: Yes Status: Acute Assessment and plan: Secondary to pneumonia and COPD pH 7.41, PC02 43, HCO3 27, P02 49 duo neb treatments and albuterol nebulizer treatments titrate O2 saturation to greater than 92% currently on 15 L oxygen venti mask (50% FIO2) ween oxygen is tolerated (4) Anemia Current Visit: Yes Status: Acute Assessment and plan: Hgb 8.6, MCV normal patient denies any melena or hemoptysis iron studies pending stool occult sent to lab: pending may require transfusion if hemoglobin is less than 7 Qualifiers: Anemia type: unspecified type Qualified Code(s): D64.9 - Anemia, unspecified (5) Elevated troponin Current Visit: Yes Status: Acute Assessment and plan: Troponin .04, .02, .02 no chest pain at this time or prior to arrival. most likely secondary to COPD and pneumonia (6) UTI (urinary tract infection) Current Visit: Yes Status: Acute Assessment and plan: Urine culture negative Qualifiers: Urinary tract infection type: site unspecified Hematuria presence: with hematuria Qualified Code(s): N39.0 - Urinary tract infection, site not specified; R31.9 - Hematuria, unspecified (7) DVT prophylaxis Current Visit: Yes Status: Acute Assessment and plan: encourage ambulation antiembolic stockings heparin 5,000us SQ BID - Subjective Interval history: Patient seen and examined. Patient hypoxic on room air requiring 15 L non- rebreather. Patient is poor historian. Patient having increasing dyspnea, wet sounding cough, unable to produce any sputum due to COPD. Denies any chest pain , abdominal pain, nausea vomiting diarrhea. - Constitutional Vitals: Temp Pulse Resp BP Pulse Ox 98.4 F 86 22 103/64 97 06/29/16 07:05 06/29/16 07:05 06/29/16 07:05 06/29/16 07:05 06/29/16 07:05 General appearance: Present: mild distress, A&O X 3 - Head Head exam: Present: atraumatic, normocephalic - Eye Eye exam: Present: PERRL, conjuntiva pink, sclera anicteric Pupils: Present: PERRL - Neck Neck exam general surgery: Present: lymphadenopathy, supple, trachea midline - Respiratory Respiratory exam: Present: rales, respiratory distress, rhonchi, wheezes, tachypnea - Cardiovascular Cardiovascular exam: Present: RRR, +S1, +S2 - GI/Abdominal GI/Abdominal exam: Present: normal bowel sounds, soft, no peritoneal signs. Absent: distended, tenderness - Extremities Exam Extremities exam: Present: warm, radial pulses palpable and symetrical. Absent : calf tenderness, cyanotic, pedal edema - Neurological Exam Neurological exam: Present: CN II-XII intact, oriented X3, no focal deficits. Absent: facial droop, speech deficit - Skin Skin exam: Present: dry, intact Internal Medicine: Result - Labs CBC & Chem 7: 06/29/16 02:52 06/29/16 02:52 - ABG Interpretation ABG results: ABG ABG pH 7.40 pH Units (7.32-7.45) 06/28/16 21:18 ABG pCO2 44 mmHg (35-45) 06/28/16 21:18 ABG pO2 76 mmHg (85-104) L 06/28/16 21:18 ABG O2 Saturation 95 % (95-98) 06/28/16 21:18 PT/INR, D-dimer PT 14.7 Seconds (9.4-12.1) H 06/28/16 21:37 Consult Discharge Plan - Plan [facility]errals: [facility] [Primary Care Provider] - <Balta Garcia - Last Filed: 06/29/16 19:05> Date of Encounter: 06/29/16 Time of Encounter: 13:23 - Constitutional Vitals: Temp Pulse Resp BP Pulse Ox 99.2 F 97 14 106/63 98 06/29/16 13:07 06/29/16 13:07 06/29/16 13:07 06/29/16 13:07 06/29/16 13:07 Internal Medicine: Result - Labs CBC & Chem 7: 06/29/16 02:52 06/29/16 02:52 Labs: Cardiac Enzymes 06/29/16 Range/Units 09:14 Troponin I 0.02 (0-0.03) ng/mL - ABG Interpretation ABG results: ABG ABG pH 7.41 pH Units (7.32-7.45) 06/29/16 10:28 ABG pCO2 43 mmHg (35-45) 06/29/16 10:28 ABG pO2 49 mmHg (85-104) L* 06/29/16 10:28 ABG O2 Saturation 85 % (95-98) L 06/29/16 10:28 PT/INR, D-dimer PT 14.7 Seconds (9.4-12.1) H 06/28/16 21:37 - Attending Attestation I examined this patient and my medical decision-making was reviewed with the STEAM DRIER TENDER/PA/Advanced Practice Nurse/Resident Physician. I agree with the documented findings, disposition and treatment plan as described except to the extent set forth below. trat as event note not a billable note
[2016-06-29] MEDS: Cholecalciferol (D-3) 1,000 UNIT TABLET PO SCH (09:29)
[2016-06-29] MEDS: lamoTRIgine 100 MG TABLET PO SCH (09:29)
[2016-06-29] MEDS: Piperacillin/Tazobactam 3.375 GM in D5% in Water (Mini-Bag+) 100 ML IVPB SCH ×2 (09:30→18:09)
[2016-06-29 10:42] LABS: ABG Base Excess 2.4 mEq/L (-2.0 to 3.0); ABG HCO3 27.3 mEQ/L (21-27); ABG Oxygen Saturation 85 % (95-98); ABG PCO2 43 mmHg (35-45); ABG PH 7.41 pH Units (7.32-7.45); ABG TCO2 28.6 mEq/L (20-26)
[2016-06-29 10:46] LABS: ABG PO2 49 mmHg (85-104)
[2016-06-29 10:47] LABS: Blood Gas FiO2 40 %
[2016-06-29] MEDS: Vancomycin 1,250 MG in D5% in Water 250 ML IVPB SCH (14:09)
[2016-06-29] MEDS: GuaiFENesin/Codeine Oral Soln 5 ML UDC PO SCH ×3 (14:09→21:11)
--- NOTE | 2016-06-29 14:31 | Electrocardiograph Report ---
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
[2016-06-29] MEDS: methylPREDNISolone 125 MG/2 ML VIAL IVP SCH (18:06)
[2016-06-29] MEDS ORDERED: Levofloxacin 500 MG/100 ML 500 MG/100 ML BAG IVPB SCH (20:00)
[2016-06-29] MEDS: Levofloxacin 500 MG/100 ML 500 MG/100 ML BAG IVPB SCH (22:27)
[2016-06-30] MEDS: Piperacillin/Tazobactam 3.375 GM in D5% in Water (Mini-Bag+) 100 ML IVPB SCH ×3 (00:16→18:04)
[2016-06-30] MEDS: methylPREDNISolone 125 MG/2 ML VIAL IVP SCH ×3 (00:16→18:03)
[2016-06-30] MEDS: Vancomycin 1,250 MG in D5% in Water 250 ML IVPB SCH (00:17)
[2016-06-30] MEDS: Ipratropium/Albuterol Neb 3 ML IH SCH ×4 (03:33→21:45)
[2016-06-30] MEDS: 0.9 % Sodium Chloride 1,000 ML IVC SCH ×2 (04:35→21:25)
[2016-06-30 05:16] LABS: Basophils % 0.2 %; Hematocrit 28.9 % (37.5-50.1); Hemoglobin 9.1 g/dL (12.9-16.9); Immature Granulocytes % 1.7 % (0-4); Immature Platelets 4.7 % (1.1-6.1); Lymphocytes # 0.6 K/mcL (0.6-4.6); Lymphocytes % 6.8 %; Mean Corpuscular HGB Conc 31.5 g/dL (31.6-35.5); Mean Corpuscular Hemoglobin 27.3 pg (28.0-33.3); Mean Corpuscular Volume 86.8 fL (83.0-100.0); Monocytes # 0.2 K/mcL (0.0-1.3); Monocytes % 1.9 %; Neutrophils # 8.4 K/mcL (1.6-8.9); Platelet Count 320 K/mcL (140-400); Red Blood Count 3.33 M/mcL (4.19-5.50); Red Cell Distribution Width 16.2 % (11.5-14.5); Segmented Neutrophils % 89.4 %
[2016-06-30 05:35] LABS: % Iron Saturation 10 % (20-55); BUN/Creatinine Ratio 19 (6-26); Blood Urea Nitrogen 19 mg/dL (8-26); Calcium 8.8 mg/dL (8.6-10.8); Carbon Dioxide 24 mEq/L (19-29); Chloride 111 mEq/L (98-109); Glucose 139 mg/dL (70-99); Iron 22 mcg/dL (65-175); Osmolality,Calculated 303 (280-300); Potassium 3.9 mEq/L (3.5-4.5); Sodium 144 mEq/L (136-145); Transferrin 154 mg/dL (174-364); eGFR For African Americans > 60 (> 60); eGFR For Non-African Americans > 60 (> 60)
[2016-06-30] MEDS: *HR* Heparin 5,000 UNIT/ML VIAL SQ SCH (06:40)
[2016-06-30] MEDS: Budesonide/Formoterol 160/4.5 MDI IH SCH ×2 (10:23→21:46)
[2016-06-30] MEDS: GuaiFENesin/Codeine Oral Soln 5 ML UDC PO SCH ×4 (10:52→21:25)
[2016-06-30] MEDS: cloZAPine 100 MG TABLET PO SCH (10:52)
[2016-06-30] MEDS: lamoTRIgine 100 MG TABLET PO SCH (10:52)
[2016-06-30] MEDS: Multivit/Ca/Min/Fe/FA 1 TAB TABLET PO SCH (10:52)
[2016-06-30] MEDS: Cholecalciferol (D-3) 1,000 UNIT TABLET PO SCH (10:53)
[2016-06-30] MEDS: Loratadine 10 MG TABLET PO SCH (10:53)
[2016-06-30] MEDS: Vancomycin 1,000 MG in D5% in Water 250 ML IVPB SCH (13:56)
--- NOTE | 2016-06-30 16:07 | Internal Med Progress Note ---
<Rigoberto Mazariegos - Last Filed: 06/30/16 16:05> Date of Encounter: 06/30/16 Time of Encounter: 16:05 - Assessment and plan (1) Sepsis Current Visit: Yes Status: Acute Assessment and plan: 2/2 HCAP Improving. No longer meets Sepsis criteria Resident of the [facility] 06/29/16 WBC 24.5, Resp 30, HR 97, BP 106/63 06/30/16 WBC 9.4, resp 18, HR 100, BP 118/71 Continue NS IVF 125 ml/hr blood cx pending. NGTD monitor vitals and labs Continue Vanc, Zosyn, and Levoflaxacin (day 2) Chest X-Ray 06/28/16 20:31 IMPRESSION: 1. There are infiltrates noted in the right mid and lower lung field, concerning for pneumonia. 2. There are areas of interstitial thickening in the lungs bilaterally which may be related to underlying interstitial lung disease versus pulmonary vascular congestion. D/ / 06/28/2016 21:45:28 Jose Rhoades MD / merari Interpreting Provider: Jose Rhoades MD Qualifiers: Sepsis type: sepsis due to unspecified organism Qualified Code(s): A41.9 - Sepsis, unspecified organism (2) Healthcare associated bacterial pneumonia Current Visit: Yes Status: Acute Assessment and plan: Patient lives at the [place]. CXR showed infiltrates in the right mid and right lower lobe consistent with pneumonia. Right lung rales auscultated Improving breath sounds, WBC, and vitals. 06/29/16 WBC 24.5, Resp 30, HR 97, BP 106/63 06/30/16 WBC 9.4, resp 18, HR 100, BP 118/71 Vancomycin, Zosyn and Levaquin for HCAP (day 2) continuous IV fluids of 0.9NS at 125mL/hr duoneb treatments QID albuterol nebulizer Q2h PRN titrate O2 to maintain saturation > 92% blood cx pending vanc trough 18.5 (3) Acute respiratory failure with hypoxia Current Visit: Yes Status: Acute Assessment and plan: Secondary to pneumonia and COPD pH 7.41, PC02 43, HCO3 27, P02 49 duo neb treatments and albuterol nebulizer treatments titrate O2 saturation to greater than 92% currently on 7 L oxygen venti mask (50% FIO2) ween oxygen is tolerated (4) Anemia Current Visit: Yes Status: Acute Assessment and plan: Hgb up to 9.1 from 8.6 patient denies any melena or hemoptysis iron studies: Iron 22, %sat 10, transferrin 154. Iron deficiency anemia. Ferrous sulfate 325 mg BID stool occult sent to lab: pending may require transfusion if hemoglobin is less than 7 Qualifiers: Anemia type: unspecified type Qualified Code(s): D64.9 - Anemia, unspecified (5) Elevated troponin Current Visit: Yes Status: Acute Assessment and plan: Troponin .04, .02, .02 no chest pain at this time or prior to arrival. most likely secondary to COPD and pneumonia (6) UTI (urinary tract infection) Current Visit: Yes Status: Acute Assessment and plan: UA revealed possible UTI asymptomatic Urine culture negative Qualifiers: Urinary tract infection type: site unspecified Hematuria presence: with hematuria Qualified Code(s): N39.0 - Urinary tract infection, site not specified; R31.9 - Hematuria, unspecified (7) DVT prophylaxis Current Visit: Yes Status: Acute Assessment and plan: encourage ambulation antiembolic stockings heparin 5,000us SQ BID - Subjective Interval history: Patient seen and examined. Patient hypoxic on room air requiring 7 L venti mask Patient is poor historian. Patient reports feeling better today, but still has dyspnea at rest with wet sounding cough. Denies any chest pain, abdominal pain, nausea vomiting diarrhea. - Constitutional Vitals: Temp Pulse Resp BP Pulse Ox 97.8 F 113 18 118/71 91 L 06/30/16 15:08 06/30/16 15:08 06/30/16 15:08 06/30/16 10:55 06/30/16 15:08 General appearance: Present: mild distress, A&O X 3 - Head Head exam: Present: atraumatic, normocephalic - Eye Eye exam: Present: PERRL, conjuntiva pink, sclera anicteric - Neck Neck exam general surgery: Present: supple, trachea midline. Absent: lymphadenopathy - Respiratory Respiratory exam: Present: decreased breath sounds, prolonged expiratory phase, rales, rhonchi, wheezes - Cardiovascular Cardiovascular exam: Present: RRR, +S1, +S2. Absent: diastolic murmur, gallop, rubs, systolic murmur - GI/Abdominal GI/Abdominal exam: Present: normal bowel sounds, soft, no peritoneal signs. Absent: distended, tenderness - Extremities Exam Extremities exam: Present: warm, radial pulses palpable and symetrical. Absent : calf tenderness, cyanotic, pedal edema - Neurological Exam Neurological exam: Present: CN II-XII intact, oriented X3, no focal deficits. Absent: facial droop, speech deficit - Skin Skin exam: Present: dry, intact Internal Medicine: Result - Labs CBC & Chem 7: 06/30/16 05:03 06/30/16 05:03 Labs: Short CBC 06/30/16 Range/Units 05:03 WBC 9.4 D (4.3-11.1) K/mcL Hgb 9.1 L (12.9-16.9) g/dL Hct 28.9 L (37.5-50.1) % Plt Count 320 (140-400) K/mcL Neutrophils # 8.4 (1.6-8.9) K/mcL BMP 06/30/16 05:03 Sodium 144 Potassium 3.9 Chloride 111 H Carbon Dioxide 24 BUN 19 Creatinine 0.99 Glucose 139 H Calcium 8.8 - ABG Interpretation ABG results: ABG ABG pH 7.41 pH Units (7.32-7.45) 06/29/16 10:28 ABG pCO2 43 mmHg (35-45) 06/29/16 10:28 ABG pO2 49 mmHg (85-104) L* 06/29/16 10:28 ABG O2 Saturation 85 % (95-98) L 06/29/16 10:28 PT/INR, D-dimer PT 14.7 Seconds (9.4-12.1) H 06/28/16 21:37 Consult Discharge Plan - Plan [facility]errals: [facility] [Primary Care Provider] - <Balta Garcia P - Last Filed: 06/30/16 18:43> Date of Encounter: 06/30/16 - Constitutional Vitals: Temp Pulse Resp BP Pulse Ox 97.8 F 113 18 118/71 91 L 06/30/16 15:08 06/30/16 15:08 06/30/16 15:08 06/30/16 10:55 06/30/16 15:08 Internal Medicine: Result - Labs CBC & Chem 7: 06/30/16 05:03 06/30/16 05:03 Labs: Short CBC 06/30/16 Range/Units 05:03 WBC 9.4 D (4.3-11.1) K/mcL Hgb 9.1 L (12.9-16.9) g/dL Hct 28.9 L (37.5-50.1) % Plt Count 320 (140-400) K/mcL Neutrophils # 8.4 (1.6-8.9) K/mcL BMP 06/30/16 05:03 Sodium 144 Potassium 3.9 Chloride 111 H Carbon Dioxide 24 BUN 19 Creatinine 0.99 Glucose 139 H Calcium 8.8 - ABG Interpretation ABG results: ABG ABG pH 7.41 pH Units (7.32-7.45) 06/29/16 10:28 ABG pCO2 43 mmHg (35-45) 06/29/16 10:28 ABG pO2 49 mmHg (85-104) L* 06/29/16 10:28 ABG O2 Saturation 85 % (95-98) L 06/29/16 10:28 PT/INR, D-dimer PT 14.7 Seconds (9.4-12.1) H 06/28/16 21:37 - Attending Attestation I examined this patient and my medical decision-making was reviewed with the CIVIL ENGINEERING MANAGER/PA/Advanced Practice Nurse/Resident Physician. I agree with the documented findings, disposition and treatment plan as described except to the extent set forth below.
[2016-07-01] MEDS: methylPREDNISolone 125 MG/2 ML VIAL IVP SCH ×3 (00:05→17:04)
[2016-07-01] MEDS: Levofloxacin 500 MG/100 ML 500 MG/100 ML BAG IVPB SCH ×2 (00:06→21:50)
[2016-07-01] MEDS: Piperacillin/Tazobactam 3.375 GM in D5% in Water (Mini-Bag+) 100 ML IVPB SCH ×3 (01:26→17:05)
[2016-07-01] MEDS: Vancomycin 1,000 MG in D5% in Water 250 ML IVPB SCH ×2 (04:42→12:36)
[2016-07-01] MEDS: Ipratropium/Albuterol Neb 3 ML IH SCH ×4 (04:59→20:29)
[2016-07-01] MEDS: *HR* Heparin 5,000 UNIT/ML VIAL SQ SCH ×2 (05:22→17:05)
[2016-07-01 05:48] LABS: Basophils % 0.2 %; Hematocrit 27.7 % (37.5-50.1); Hemoglobin 8.6 g/dL (12.9-16.9); Immature Granulocytes % 3.3 % (0-4); Lymphocytes % 5.6 %; Mean Corpuscular Hemoglobin 26.6 pg (28.0-33.3); Mean Corpuscular Volume 85.8 fL (83.0-100.0); Mean Platelet Volume 11.3 fL (9.4-12.4); Monocytes # 0.5 K/mcL (0.0-1.3); Monocytes % 3.1 %; Nucleated Red Blood Cells 0.1 /100 WBC (0); Platelet Count 391 K/mcL (140-400); Red Blood Count 3.23 M/mcL (4.19-5.50); Red Cell Distribution Width 16.4 % (11.5-14.5); Segmented Neutrophils % 87.8 %
[2016-07-01 05:49] LABS: Neutrophils # 14.8 K/mcL (1.6-8.9)
[2016-07-01 06:00] LABS: BUN/Creatinine Ratio 24 (6-26); Blood Urea Nitrogen 20 mg/dL (8-26); Calcium 8.6 mg/dL (8.6-10.8); Carbon Dioxide 28 mEq/L (19-29); Chloride 109 mEq/L (98-109); Glucose 125 mg/dL (70-99); Osmolality,Calculated 300 (280-300); Potassium 3.9 mEq/L (3.5-4.5); Sodium 143 mEq/L (136-145); eGFR For African Americans > 60 (> 60); eGFR For Non-African Americans > 60 (> 60)
[2016-07-01] MEDS: GuaiFENesin/Codeine Oral Soln 5 ML UDC PO SCH ×4 (09:24→21:50)
[2016-07-01] MEDS: lamoTRIgine 100 MG TABLET PO SCH (09:25)
[2016-07-01] MEDS: Cholecalciferol (D-3) 1,000 UNIT TABLET PO SCH (09:26)
[2016-07-01] MEDS: Loratadine 10 MG TABLET PO SCH (09:27)
[2016-07-01] MEDS: Multivit/Ca/Min/Fe/FA 1 TAB TABLET PO SCH (09:27)
[2016-07-01] MEDS: cloZAPine 100 MG TABLET PO SCH (09:27)
[2016-07-01] MEDS: Budesonide/Formoterol 160/4.5 MDI IH SCH ×2 (10:51→20:29)
--- NOTE | 2016-07-01 16:12 | Internal Med Progress Note ---
<Rigoberto Mazariegos - Last Filed: 07/01/16 16:10> Date of Encounter: 07/01/16 Time of Encounter: 10:00 - Assessment and plan (1) Sepsis Current Visit: Yes Status: Acute Assessment and plan: 2/2 HCAP Improving[facility]16 WBC 24.5, Resp 30, HR 97, BP 106/63 06/30/16 WBC 9.4, resp 18, HR 100, BP 118/71 07/01/16 WBC 16.9 (likely 2/2 steroids), resp 17, HR 105, BP 173/93 Continue NS IVF 125 ml/hr blood cx pending. NGTD monitor vitals and labs Continue Vanc, Zosyn, and Levoflaxacin (day 3) (2) Healthcare associated bacterial pneumonia Current Visit: Yes Status: Acute Assessment and plan: Patient lives at the [place]. CXR showed infiltrates in the right mid and right lower lobe consistent with pneumonia. Right lung rales auscultated Improving breath sounds, WBC, and vitals. Vancomycin, Zosyn and Levaquin for HCAP (day 3) continuous IV fluids of 0.9NS at 125mL/hr duoneb treatments QID albuterol nebulizer Q2h PRN titrate O2 to maintain saturation > 92% blood cx pending vanc trough 18.5 (3) Acute respiratory failure with hypoxia Current Visit: Yes Status: Acute Assessment and plan: Secondary to pneumonia and COPD pH 7.41, PC02 43, HCO3 27, P02 49 duo neb treatments and albuterol nebulizer treatments titrate O2 saturation to greater than 92% currently on 7 L oxygen venti mask (50% FIO2) ween oxygen is tolerated (4) Anemia Current Visit: Yes Status: Acute Assessment and plan: Hgb 8.6 patient denies any melena or hemoptysis iron studies: Iron 22, %sat 10, transferrin 154. Iron deficiency anemia. Ferrous sulfate 325 mg BID stool occult sent to lab: pending may require transfusion if hemoglobin is less than 7 (5) Elevated troponin Current Visit: Yes Status: Acute Assessment and plan: Troponin .04, .02, .02 no chest pain at this time or prior to arrival. most likely secondary to COPD and pneumonia (6) UTI (urinary tract infection) Current Visit: Yes Status: Acute Assessment and plan: UA revealed possible UTI asymptomatic Urine culture negative (7) DVT prophylaxis Current Visit: Yes Status: Acute Assessment and plan: encourage ambulation antiembolic stockings heparin 5,000us SQ BID - Subjective Interval history: Patient seen and examined. Patient hypoxic on room air requiring 7 L venti mask Patient is poor historian. Patient feeling better today, but still has dyspnea at rest with wet sounding cough. More awake and alert. Denies any chest pain, abdominal pain, nausea vomiting diarrhea. - Constitutional Vitals: Temp Pulse Resp BP Pulse Ox 98.0 F 105 20 173/93 92 L 07/01/16 12:17 07/01/16 12:17 07/01/16 15:58 07/01/16 12:17 07/01/16 15:58 General appearance: Present: mild distress, A&O X 3 - Head Head exam: Present: atraumatic, normocephalic - Eye Eye exam: Present: PERRL, conjuntiva pink, sclera anicteric Pupils: Present: PERRL - Neck Neck exam general surgery: Present: supple, trachea midline. Absent: lymphadenopathy - Respiratory Respiratory exam: Present: prolonged expiratory phase, rales, respiratory distress, wheezes. Absent: CTAB - Cardiovascular Cardiovascular exam: Present: RRR, +S1, +S2. Absent: diastolic murmur, gallop, rubs, systolic murmur - GI/Abdominal GI/Abdominal exam: Present: normal bowel sounds, soft, no peritoneal signs. Absent: distended, tenderness - Extremities Exam Extremities exam: Present: warm, radial pulses palpable and symetrical. Absent : calf tenderness, cyanotic, pedal edema - Neurological Exam Neurological exam: Present: CN II-XII intact, oriented X3, no focal deficits. Absent: facial droop, speech deficit - Skin Skin exam: Present: dry, intact Internal Medicine: Result - Labs CBC & Chem 7: 07/01/16 05:30 07/01/16 05:30 Labs: Short CBC 07/01/16 Range/Units 05:30 WBC 16.9 H D (4.3-11.1) K/mcL Hgb 8.6 L (12.9-16.9) g/dL Hct 27.7 L (37.5-50.1) % Plt Count 391 (140-400) K/mcL Neutrophils # 14.8 H (1.6-8.9) K/mcL BMP 07/01/16 05:30 Sodium 143 Potassium 3.9 Chloride 109 Carbon Dioxide 28 BUN 20 Creatinine 0.83 Glucose 125 H Calcium 8.6 - ABG Interpretation ABG results: ABG ABG pH 7.41 pH Units (7.32-7.45) 06/29/16 10:28 ABG pCO2 43 mmHg (35-45) 06/29/16 10:28 ABG pO2 49 mmHg (85-104) L* 06/29/16 10:28 ABG O2 Saturation 85 % (95-98) L 06/29/16 10:28 PT/INR, D-dimer PT 14.7 Seconds (9.4-12.1) H 06/28/16 21:37 Consult Discharge Plan - Plan [facility]errals: [facility] [Primary Care Provider] - <Balta Garcia P - Last Filed: 07/01/16 18:11> Date of Encounter: 07/01/16 - Constitutional Vitals: Temp Pulse Resp BP Pulse Ox 97.7 F 106 16 129/89 96 07/01/16 16:40 07/01/16 16:40 07/01/16 16:40 07/01/16 16:40 07/01/16 16:40 Internal Medicine: Result - Labs CBC & Chem 7: 07/01/16 05:30 07/01/16 05:30 Labs: Short CBC 07/01/16 Range/Units 05:30 WBC 16.9 H D (4.3-11.1) K/mcL Hgb 8.6 L (12.9-16.9) g/dL Hct 27.7 L (37.5-50.1) % Plt Count 391 (140-400) K/mcL Neutrophils # 14.8 H (1.6-8.9) K/mcL BMP 07/01/16 05:30 Sodium 143 Potassium 3.9 Chloride 109 Carbon Dioxide 28 BUN 20 Creatinine 0.83 Glucose 125 H Calcium 8.6 - ABG Interpretation ABG results: ABG ABG pH 7.41 pH Units (7.32-7.45) 06/29/16 10:28 ABG pCO2 43 mmHg (35-45) 06/29/16 10:28 ABG pO2 49 mmHg (85-104) L* 06/29/16 10:28 ABG O2 Saturation 85 % (95-98) L 06/29/16 10:28 PT/INR, D-dimer PT 14.7 Seconds (9.4-12.1) H 06/28/16 21:37 - Attending Attestation I examined this patient and my medical decision-making was reviewed with the DY[employer] SOLUTION ARCHITECT/PA/Advanced Practice Nurse/Resident Physician. I agree with the documented findings, disposition and treatment plan as described except to the extent set forth below.
[2016-07-01] MEDS: 0.9 % Sodium Chloride 1,000 ML IVC SCH (22:02)
[2016-07-02] MEDS: Piperacillin/Tazobactam 3.375 GM in D5% in Water (Mini-Bag+) 100 ML IVPB SCH ×4 (01:01→23:36)
[2016-07-02] MEDS: methylPREDNISolone 125 MG/2 ML VIAL IVP SCH ×4 (01:02→23:36)
[2016-07-02 02:37] LABS: Hematocrit 27.1 % (37.5-50.1); Hemoglobin 8.2 g/dL (12.9-16.9); Mean Corpuscular HGB Conc 30.3 g/dL (31.6-35.5); Mean Corpuscular Hemoglobin 26.1 pg (28.0-33.3); Mean Corpuscular Volume 86.3 fL (83.0-100.0); Mean Platelet Volume 10.7 fL (9.4-12.4); Nucleated Red Blood Cells 0.1 /100 WBC (0); Platelet Count 373 K/mcL (140-400); Red Blood Count 3.14 M/mcL (4.19-5.50); Red Cell Distribution Width 16.5 % (11.5-14.5)
[2016-07-02 02:51] LABS: BUN/Creatinine Ratio 26 (6-26); Blood Urea Nitrogen 24 mg/dL (8-26); Calcium 8.3 mg/dL (8.6-10.8); Carbon Dioxide 28 mEq/L (19-29); Chloride 109 mEq/L (98-109); Glucose 119 mg/dL (70-99); Osmolality,Calculated 299 (280-300); Potassium 4.3 mEq/L (3.5-4.5); Sodium 142 mEq/L (136-145); eGFR For African Americans > 60 (> 60); eGFR For Non-African Americans > 60 (> 60)
[2016-07-02] MEDS: *HR* Heparin 5,000 UNIT/ML VIAL SQ SCH ×3 (02:58→16:07)
[2016-07-02 03:05] LABS: Lymphocytes # 0.6 K/mcL (0.6-4.6); Monocytes # 0.6 K/mcL (0.0-1.3); Neutrophils # 12.9 K/mcL (1.6-8.9); Platelet Estimate Normal (Normal)
[2016-07-02 03:06] LABS: Hypochromasia Present (Not Present)
[2016-07-02] MEDS: Ipratropium/Albuterol Neb 3 ML IH SCH ×4 (03:35→22:25)
[2016-07-02] MEDS: Vancomycin 1,000 MG in D5% in Water 250 ML IVPB SCH ×2 (04:27→13:55)
[2016-07-02] MEDS: 0.9 % Sodium Chloride 1,000 ML IVC SCH (06:26)
[2016-07-02] MEDS: Multivit/Ca/Min/Fe/FA 1 TAB TABLET PO SCH (10:02)
[2016-07-02] MEDS: lamoTRIgine 100 MG TABLET PO SCH (10:02)
[2016-07-02] MEDS: Cholecalciferol (D-3) 1,000 UNIT TABLET PO SCH (10:03)
[2016-07-02] MEDS: Loratadine 10 MG TABLET PO SCH (10:03)
[2016-07-02] MEDS: cloZAPine 100 MG TABLET PO SCH (10:04)
[2016-07-02] MEDS: GuaiFENesin/Codeine Oral Soln 5 ML UDC PO SCH ×4 (10:05→23:24)
--- NOTE | 2016-07-02 10:39 | Internal Med Progress Note ---
<Rigoberto Mazariegos - Last Filed: 07/02/16 17:10> Date of Encounter: 07/02/16 Time of Encounter: 10:37 - Assessment and plan (1) Sepsis Current Visit: Yes Status: Acute Assessment and plan: 2/2 HCAP Improving. [facility] WBC 24.5, Resp 30, HR 97, BP 106/63 06/30/16 WBC 9.4, resp 18, HR 100, BP 118/71 07/01/16 WBC 16.9 ( bump likely 2/2 steroids), resp 17, HR 105, BP 173/93 07/02/16 WBC 14.3 Resp 18, HR 99, BP 145/80 Continue NS IVF 125 ml/hr blood cx pending. NGTD monitor vitals and labs Continue Vanc, Zosyn, and Levoflaxacin (day 4) Qualifiers: Sepsis type: sepsis due to unspecified organism Qualified Code(s): A41.9 - Sepsis, unspecified organism (2) Healthcare associated bacterial pneumonia Current Visit: Yes Status: Acute Assessment and plan: Patient lives at the [place]. CXR showed infiltrates in the right mid and right lower lobe consistent with pneumonia. Vancomycin, Zosyn and Levaquin for HCAP (day 4) continuous IV fluids of 0.9NS at 125mL/hr duoneb treatments QID albuterol nebulizer Q2h PRN titrate O2 to maintain saturation > 92% blood cx pending vanc trough 18.5 Chest X-Ray 06/28/16 20:31 IMPRESSION: 1. There are infiltrates noted in the right mid and lower lung field, concerning for pneumonia. 2. There are areas of interstitial thickening in the lungs bilaterally which may be related to underlying interstitial lung disease versus pulmonary vascular congestion. Abdomen/Pelvis CT 07/02/16 11:15 IMPRESSION: 1. Partial atelectasis of the right lung with scattered patchy opacities which may represent superimposed infiltrate. 2. Small right pleural effusion. 3. Emphysema. D/ / Mejia Jefferson MD / Mejia Jefferson MD Interpreting Provider: Mejia Jefferson MD (3) Acute respiratory failure with hypoxia Current Visit: Yes Status: Acute Assessment and plan: Secondary to pneumonia and COPD pH 7.41, PC02 43, HCO3 27, P02 49 duo neb treatments and albuterol nebulizer treatments titrate O2 saturation to greater than 88% Still requiring 7L supplemental O2 ween oxygen is tolerated (4) Anemia Current Visit: Yes Status: Acute Assessment and plan: Hgb 07/01/16 8.6, 07/02/16 8.2 patient denies any melena or hemoptysis iron studies: Iron 22, %sat 10, transferrin 154. Iron deficiency anemia. Ferrous sulfate 325 mg BID stool occult sent to lab: pending may require transfusion if hemoglobin is less than 7 Qualifiers: Anemia type: unspecified type Qualified Code(s): D64.9 - Anemia, unspecified (5) Elevated troponin Current Visit: Yes Status: Acute Assessment and plan: Troponin .04, .02, .02 no chest pain at this time or prior to arrival. most likely secondary to COPD and pneumonia (6) UTI (urinary tract infection) Current Visit: Yes Status: Acute Assessment and plan: UA revealed possible UTI asymptomatic Urine culture negative Qualifiers: Urinary tract infection type: site unspecified Hematuria presence: with hematuria Qualified Code(s): N39.0 - Urinary tract infection, site not specified; R31.9 - Hematuria, unspecified (7) DVT prophylaxis Current Visit: Yes Status: Acute Assessment and plan: encourage ambulation antiembolic stockings heparin 5,000us SQ BID - Subjective Interval history: Patient seen and examined. Patient hypoxic on room air requiring 7 L to keep O2 sat >88%. Patient is poor historian. Patient feeling a little worse than yesterday. Still has dyspnea at rest with wet sounding cough. Still awake and alert. Denies any chest pain, abdominal pain, nausea vomiting diarrhea. - Constitutional Vitals: Temp Pulse Resp BP Pulse Ox 97.7 F 99 18 147/87 95 07/02/16 08:26 07/02/16 08:26 07/02/16 08:26 07/02/16 08:26 07/02/16 08:26 General appearance: Present: mild distress, A&O X 3 - Head Head exam: Present: atraumatic, normocephalic - Eye Eye exam: Present: PERRL, conjuntiva pink, sclera anicteric Pupils: Present: PERRL - Neck Neck exam general surgery: Present: supple, trachea midline. Absent: lymphadenopathy - Respiratory Respiratory exam: Present: prolonged expiratory phase, rales, respiratory distress, rhonchi, wheezes - Cardiovascular Cardiovascular exam: Present: RRR, +S1, +S2. Absent: diastolic murmur, gallop, rubs, systolic murmur - GI/Abdominal GI/Abdominal exam: Present: normal bowel sounds, soft, no peritoneal signs. Absent: distended, tenderness - Extremities Exam Extremities exam: Present: warm, radial pulses palpable and symetrical. Absent : calf tenderness, cyanotic, pedal edema - Neurological Exam Neurological exam: Present: CN II-XII intact, oriented X3, no focal deficits. Absent: pronater drift, facial droop, speech deficit - Skin Skin exam: Present: dry, intact Internal Medicine: Result - Labs CBC & Chem 7: 07/02/16 02:30 07/02/16 02:30 Labs: Short CBC 07/02/16 Range/Units 02:30 WBC 14.3 H (4.3-11.1) K/mcL Hgb 8.2 L (12.9-16.9) g/dL Hct 27.1 L (37.5-50.1) % Plt Count 373 (140-400) K/mcL Neutrophils # 12.9 H (1.6-8.9) K/mcL BMP 07/02/16 02:30 Sodium 142 Potassium 4.3 Chloride 109 Carbon Dioxide 28 BUN 24 Creatinine 0.91 Glucose 119 H Calcium 8.3 L - ABG Interpretation ABG results: ABG ABG pH 7.41 pH Units (7.32-7.45) 06/29/16 10:28 ABG pCO2 43 mmHg (35-45) 06/29/16 10:28 ABG pO2 49 mmHg (85-104) L* 06/29/16 10:28 ABG O2 Saturation 85 % (95-98) L 06/29/16 10:28 PT/INR, D-dimer PT 14.7 Seconds (9.4-12.1) H 06/28/16 21:37 Consult Discharge Plan - Plan [facility]errals: [facility] [Primary Care Provider] - <Balta Garcia P - Last Filed: 07/02/16 18:22> Date of Encounter: 07/02/16 - Constitutional Vitals: Temp Pulse Resp BP Pulse Ox 98.2 F 106 18 100/69 97 07/02/16 11:41 07/02/16 11:41 07/02/16 16:01 07/02/16 11:41 07/02/16 16:01 Internal Medicine: Result - Labs CBC & Chem 7: 07/02/16 02:30 07/02/16 02:30 Labs: Short CBC 07/02/16 Range/Units 02:30 WBC 14.3 H (4.3-11.1) K/mcL Hgb 8.2 L (12.9-16.9) g/dL Hct 27.1 L (37.5-50.1) % Plt Count 373 (140-400) K/mcL Neutrophils # 12.9 H (1.6-8.9) K/mcL BMP 07/02/16 02:30 Sodium 142 Potassium 4.3 Chloride 109 Carbon Dioxide 28 BUN 24 Creatinine 0.91 Glucose 119 H Calcium 8.3 L - ABG Interpretation ABG results: ABG ABG pH 7.41 pH Units (7.32-7.45) 06/29/16 10:28 ABG pCO2 43 mmHg (35-45) 06/29/16 10:28 ABG pO2 49 mmHg (85-104) L* 06/29/16 10:28 ABG O2 Saturation 85 % (95-98) L 06/29/16 10:28 PT/INR, D-dimer PT 14.7 Seconds (9.4-12.1) H 06/28/16 21:37 - Impressions Impressions Abdomen/Pelvis CT 07/02/16 11:15 IMPRESSION: 1. Partial atelectasis of the right lung with scattered patchy opacities which may represent superimposed infiltrate. 2. Small right pleural effusion. 3. Emphysema. 4. No acute abnormality within the abdomen and pelvis. 5. Indeterminate left adrenal nodules, probably representing adrenal adenomas. If this has not been evaluated previously, dedicated CT scan of the abdomen without and with contrast or MRI of the abdomen is recommended on a non urgent basis. D/ / Mejia Jefferson MD / Mejia Jefferson MD Interpreting Provider: Mejia Jefferson MD Chest CT 07/02/16 11:15 IMPRESSION: 1. Partial atelectasis of the right lung with scattered patchy opacities which may represent superimposed infiltrate. 2. Small right pleural effusion. 3. Emphysema. 4. No acute abnormality within the abdomen and pelvis. 5. Indeterminate left adrenal nodules, probably representing adrenal adenomas. If this has not been evaluated previously, dedicated CT scan of the abdomen without and with contrast or MRI of the abdomen is recommended on a non urgent basis. D/ / Mejia Jefferson MD / Mejia Jefferson MD Interpreting Provider: Mejia Jefferson MD - Attending Attestation I examined this patient and my medical decision-making was reviewed with the ROOFING TILE SORTER/PA/Advanced Practice Nurse/Resident Physician. I agree with the documented findings, disposition and treatment plan as described except to the extent set forth below.
[2016-07-02] MEDS: Budesonide/Formoterol 160/4.5 MDI IH SCH ×2 (11:19→22:25)
[2016-07-02] MEDS: Albuterol 2.5 MG/3 ML NEBULIZER IH PRN (19:28)
[2016-07-02] MEDS: Levofloxacin 500 MG/100 ML 500 MG/100 ML BAG IVPB SCH (21:12)
[2016-07-03] MEDS: Vancomycin 1,000 MG in D5% in Water 250 ML IVPB SCH ×2 (02:00→15:15)
[2016-07-03] MEDS: Ipratropium/Albuterol Neb 3 ML IH SCH ×4 (03:48→22:32)
[2016-07-03 04:46] LABS: Hematocrit 29.7 % (37.5-50.1); Mean Corpuscular HGB Conc 30.3 g/dL (31.6-35.5); Mean Corpuscular Hemoglobin 26.3 pg (28.0-33.3); Mean Corpuscular Volume 86.8 fL (83.0-100.0); Mean Platelet Volume 10.5 fL (9.4-12.4); Nucleated Red Blood Cells 0.3 /100 WBC (0); Platelet Count 358 K/mcL (140-400); Red Blood Count 3.42 M/mcL (4.19-5.50); Red Cell Distribution Width 16.9 % (11.5-14.5)
[2016-07-03 05:09] LABS: BUN/Creatinine Ratio 24 (6-26); Blood Urea Nitrogen 22 mg/dL (8-26); Calcium 8.5 mg/dL (8.6-10.8); Carbon Dioxide 30 mEq/L (19-29); Chloride 105 mEq/L (98-109); Glucose 129 mg/dL (70-99); Osmolality,Calculated 299 (280-300); Potassium 3.8 mEq/L (3.5-4.5); Sodium 142 mEq/L (136-145); eGFR For African Americans > 60 (> 60); eGFR For Non-African Americans > 60 (> 60)
[2016-07-03 05:37] LABS: Lymphocytes # 1.3 K/mcL (0.6-4.6); Monocytes # 1.6 K/mcL (0.0-1.3); Neutrophils # 11.9 K/mcL (1.6-8.9); Platelet Estimate Normal (Normal)
[2016-07-03 05:40] LABS: Poikilocytosis 1+ (Not Present)
[2016-07-03] MEDS: *HR* Heparin 5,000 UNIT/ML VIAL SQ SCH ×2 (05:55→17:35)
[2016-07-03] MEDS: Piperacillin/Tazobactam 3.375 GM in D5% in Water (Mini-Bag+) 100 ML IVPB SCH ×3 (08:18→23:53)
[2016-07-03] MEDS: methylPREDNISolone 125 MG/2 ML VIAL IVP SCH ×3 (08:19→23:52)
[2016-07-03] MEDS: GuaiFENesin/Codeine Oral Soln 5 ML UDC PO SCH ×4 (08:22→21:06)
[2016-07-03] MEDS: Loratadine 10 MG TABLET PO SCH (08:22)
[2016-07-03] MEDS: Cholecalciferol (D-3) 1,000 UNIT TABLET PO SCH (08:22)
[2016-07-03] MEDS: cloZAPine 100 MG TABLET PO SCH (08:22)
[2016-07-03] MEDS: Multivit/Ca/Min/Fe/FA 1 TAB TABLET PO SCH (08:23)
[2016-07-03] MEDS: lamoTRIgine 100 MG TABLET PO SCH (08:29)
--- NOTE | 2016-07-03 09:50 | Internal Med Progress Note ---
Date of Encounter: 07/04/16 Time of Encounter: 09:46 - Assessment and plan (1) Sepsis Current Visit: Yes Status: Acute Assessment and plan: 2/2 HCAP Improving. [facility] WBC 24.5, Resp 30, HR 97, BP 106/63 06/30/16 WBC 9.4, resp 18, HR 100, BP 118/71 07/01/16 WBC 16.9 ( bump likely 2/2 steroids), resp 17, HR 105, BP 173/93 07/02/16 WBC 14.3 Resp 18, HR 99, BP 145/80 Continue NS IVF 125 ml/hr blood cx pending. NGTD monitor vitals and labs Continue Vanc, Zosyn, and Levoflaxacin (day 4) 07/03/2015 -noted today WBC count is 15.6 - Band cells 34% - Afebrile/ BP: 133/78, - On Vanco/Zosyn /Levofloxacin : Day 5 - CT Chest abdomen and pelvis : no obvious source of infection other than HCAP - will repeat CBC stat. Qualifiers: Sepsis type: sepsis due to unspecified organism Qualified Code(s): A41.9 - Sepsis, unspecified organism (2) Healthcare associated bacterial pneumonia Current Visit: Yes Status: Acute Assessment and plan: Patient lives at the [place]. CXR showed infiltrates in the right mid and right lower lobe consistent with pneumonia. Vancomycin, Zosyn and Levaquin for HCAP (day 4) continuous IV fluids of 0.9NS at 125mL/hr duoneb treatments QID albuterol nebulizer Q2h PRN titrate O2 to maintain saturation > 92% blood cx pending vanc trough 18.5 07/03/2016 will continue present management. (3) Anemia Current Visit: Yes Status: Acute Assessment and plan: Hgb 07/01/16 8.6, 07/02/16 8.2 patient denies any melena or hemoptysis iron studies: Iron 22, %sat 10, transferrin 154. Iron deficiency anemia. Ferrous sulfate 325 mg BID stool occult sent to lab: pending may require transfusion if hemoglobin is less than 7 Qualifiers: Anemia type: unspecified type Qualified Code(s): D64.9 - Anemia, unspecified (4) Elevated troponin Current Visit: Yes Status: Acute Assessment and plan: Troponin .04, .02, .02 no chest pain at this time or prior to arrival. most likely secondary to COPD and pneumonia (5) DVT prophylaxis Current Visit: Yes Status: Acute Assessment and plan: encourage ambulation antiembolic stockings heparin 5,000us SQ BID - Subjective Interval history: seen and examined. still occasional cough and SOB no new complaints. - Constitutional Vitals: Temp Pulse Resp BP Pulse Ox 99.1 F 112 20 133/78 90 L 07/03/16 07:00 07/03/16 07:00 07/03/16 07:00 07/03/16 07:00 07/03/16 07:00 General appearance: Present: mild distress, A&O X 3 - Head Head exam: Present: atraumatic, normocephalic - Eye Eye exam: Present: PERRL, conjuntiva pink, sclera anicteric Pupils: Present: PERRL - Neck Neck exam general surgery: Present: supple, trachea midline. Absent: lymphadenopathy - Respiratory Respiratory exam: Present: CTAB. Absent: accessory muscle use, rales, rhonchi, wheezes - Cardiovascular Cardiovascular exam: Present: RRR, +S1, +S2. Absent: diastolic murmur, gallop, rubs, systolic murmur - GI/Abdominal GI/Abdominal exam: Present: normal bowel sounds, soft, no peritoneal signs. Absent: distended, tenderness - Extremities Exam Extremities exam: Present: warm, radial pulses palpable and symetrical. Absent : calf tenderness, cyanotic, pedal edema - Neurological Exam Neurological exam: Present: CN II-XII intact, oriented X3, no focal deficits. Absent: pronater drift, facial droop, speech deficit - Skin Skin exam: Present: dry, intact Internal Medicine: Result - Labs CBC & Chem 7: 07/04/16 05:20 07/04/16 10:05 Labs: Short CBC 07/03/16 Range/Units 04:30 WBC 15.6 H (4.3-11.1) K/mcL Hgb 9.0 L (12.9-16.9) g/dL Hct 29.7 L (37.5-50.1) % Plt Count 358 (140-400) K/mcL Neutrophils # 11.9 H (1.6-8.9) K/mcL BMP 07/03/16 04:30 Sodium 142 Potassium 3.8 Chloride 105 Carbon Dioxide 30 H BUN 22 Creatinine 0.91 Glucose 129 H Calcium 8.5 L - ABG Interpretation ABG results: ABG ABG pH 7.41 pH Units (7.32-7.45) 06/29/16 10:28 ABG pCO2 43 mmHg (35-45) 06/29/16 10:28 ABG pO2 49 mmHg (85-104) L* 06/29/16 10:28 ABG O2 Saturation 85 % (95-98) L 06/29/16 10:28 PT/INR, D-dimer PT 14.7 Seconds (9.4-12.1) H 06/28/16 21:37 - Impressions Impressions Abdomen/Pelvis CT 07/02/16 11:15 IMPRESSION: 1. Partial atelectasis of the right lung with scattered patchy opacities which may represent superimposed infiltrate. 2. Small right pleural effusion. 3. Emphysema. 4. No acute abnormality within the abdomen and pelvis. 5. Indeterminate left adrenal nodules, probably representing adrenal adenomas. If this has not been evaluated previously, dedicated CT scan of the abdomen without and with contrast or MRI of the abdomen is recommended on a non urgent basis. D/ / Mejia Jefferson MD / Mejia Jefferson MD Interpreting Provider: Mejia Jefferson MD Chest CT 07/02/16 11:15 IMPRESSION: 1. Partial atelectasis of the right lung with scattered patchy opacities which may represent superimposed infiltrate. 2. Small right pleural effusion. 3. Emphysema. 4. No acute abnormality within the abdomen and pelvis. 5. Indeterminate left adrenal nodules, probably representing adrenal adenomas. If this has not been evaluated previously, dedicated CT scan of the abdomen without and with contrast or MRI of the abdomen is recommended on a non urgent basis. D/ / Mejia Jefferson MD / Mejia Jefferson MD Interpreting Provider: Mejia Jefferson MD Consult Discharge Plan - Plan Referrals: [facility] [Primary Care Provider] -
[2016-07-03] MEDS: Budesonide/Formoterol 160/4.5 MDI IH SCH ×2 (10:32→22:32)
--- NOTE | 2016-07-03 13:06 | Pulmonology Consult Note ---
Date of Encounter: 07/03/16 Time of Encounter: 12:15 Assessment and Plan (1) Abnormal CT of the chest Current Visit: Yes Status: Acute I reviewed CT chest result with patient and recommended bronchoscopy since differential diagnosis is broad such infection, inflammation and less likely malignancy. RN was present, patient declined procedure and this was discussed with primary team. Agree with current treatment and than you for the consult. Please call for any questions. (2) Acute on chronic respiratory failure with hypoxemia Current Visit: Yes Status: Acute Patient is on home O2. Wean off FIO2 to keep SPO2 around 90% History of Present Illness Consult date: 07/03/16 Requesting physician: Balta Garcia Reason for consult: COPD, abnormal CXR/CT Chief complaint: Dyspnea History of present illness: This is a pleasant 66 year old male with significant history of copd and chronic hypoxic respiratory failure on home oxygen present with worsening of dyspnea. He has some productive cough and wheezing, but denies any hemoptysis. He has no chest pain. He denies any history of TB and no previous surgeries per patient on his lungs. Patient is feeling better now ad he doesn't want any intervention. Past Med Surg Social Fam HX - Past Medical History Medical history: COPD, hyperlipidemia, other Psychiatric history: schizophrenia - Past Surgical History Surgical History: no surgical history - Social History Smoking Status: Former smoker Smokeless Tobacco Status: No Alcohol use: none Drug use: none - Family History Father Living Status: Age at : 77 Cause of : NC Hx Family Cardiac Disorders: Yes (NC,) Hx Family Respiratory Disorders: Yes (Emphysema) Hx Family Cancer: No Hx Family GI Disorders: No Hx Family Genitourinary Disorders: No Hx Family Endocrine Disorder: No Hx Family Musculoskeletal Disorders: No Hx Family Neuromuscular Disorders: No Hx Family Neurologic Disorders: No Hx Family HEENT Disorders: No Hx Family Autoimmune Disorders: No Hx Family Reproductive Disorders: No Hx Family Psychosocial Disorders: Yes (Depression) Hx Family Medical Disorders: No Medications and Allergies Albuterol Sulfate [Albuterol Inhaler] 2 puff IH Q6HR PRN 06/29/16 [History] Atorvastatin Calcium [Lipitor] 20 mg PO DAILY 06/29/16 [History] Bisacodyl [Dulcolax] 10 mg PO 3XW MDD mon,tues,fri 06/29/16 [History] Budesonide/Formoterol 160/4.5 [Symbicort 160/4.5] 2 puff IH BIDR 06/29/16 [ History] Cholecalciferol (D-3) [Vitamin D] 2,000 unit PO DAILY 06/29/16 [History] CloZAPine [Clozaril] 300 mg PO HS 06/29/16 [History] CloZAPine [Clozaril] 400 mg PO QAM 06/29/16 [History] Docusate Sodium 100 mg PO BID 06/29/16 [History] GuaiFENesin/Dextromethorphan [Eql Tussin Dm Max Liquid] 10 ml PO Q4H PRN [History] Guaifenesin [Guaifenesin] 200 mg PO QID 06/29/16 [History] Lamotrigine [Lamictal] 75 mg PO BID 06/29/16 [History] Loratadine [Allergy Relief] 10 mg PO DAILY 06/29/16 [History] Multivitamin [One Daily Essential] 1 tab PO QAM 06/29/16 [History] Oxazepam [Serax] 10 mg PO BID 06/29/16 [History] Potassium Chloride [Klor-Con 10] 30 meq PO DAILY 06/29/16 [History] Sertraline [Zoloft] 150 mg PO QAM 06/29/16 [History] Tiotropium [Spiriva] 18 mcg IH DAILY 06/29/16 [History] Allergies chlorpromazine Adverse Reaction (Verified 06/28/16 20:23) See Comments Ether Adverse Reaction (Verified 06/28/16 20:23) See Comments All Systems: A 10-system review of systems was performed and is negative for pertinent findings except as documented above in the HPI. Physical Examination Vital Signs: Vital Signs, Last 4 Hours Resp Pulse Ox 07/03/16 10:34 22 97 General appearance: no acute distress Eyes: nonicteric ENT: oropharynx moist Neck: supple Effort: mildly labored Auscultation: left: diminished breath sounds, right: wheezes Cardiovascular: regular rate and rhythm Gastrointestinal: normoactive bowel sounds, soft Extremities: no cyanosis normal mental status, non-focal exam, other (Tremor in the upper ext) mood appropriate Results - Laboratory Findings CBC and BMP: 07/03/16 04:30 07/03/16 04:30 ABG ABG pH 7.41 pH Units (7.32-7.45) 06/29/16 10:28 ABG pCO2 43 mmHg (35-45) 06/29/16 10:28 ABG pO2 49 mmHg (85-104) L* 06/29/16 10:28 ABG O2 Saturation 85 % (95-98) L 06/29/16 10:28 PT/INR, D-dimer PT 14.7 Seconds (9.4-12.1) H 06/28/16 21:37 Abnormal lab findings: Abnormal lab results WBC 15.6 K/mcL (4.3-11.1) H 07/03/16 04:30 RBC 3.42 M/mcL (4.19-5.50) L 07/03/16 04:30 Hgb 9.0 g/dL (12.9-16.9) L 07/03/16 04:30 Hct 29.7 % (37.5-50.1) L 07/03/16 04:30 MCH 26.3 pg (28.0-33.3) L 07/03/16 04:30 MCHC 30.3 g/dL (31.6-35.5) L 07/03/16 04:30 RDW 16.9 % (11.5-14.5) H 07/03/16 04:30 Band Neutrophils % 34.0 % (0-4) H 07/03/16 04:30 Metamyelocytes % 4.0 % (0) H 07/03/16 04:30 Myelocytes % 2.0 % (0) H 07/03/16 04:30 Neutrophils # 11.9 K/mcL (1.6-8.9) H 07/03/16 04:30 Monocytes # 1.6 K/mcL (0.0-1.3) H 07/03/16 04:30 Nucleated RBCs/100 WBC 0.3 /100 WBC (0) H 07/03/16 04:30 Toxic Granulation Present (Not Present) A 06/29/16 02:52 Hypochromasia Present (Not Present) A 07/02/16 02:30 Poikilocytosis 1+ (Not Present) A 07/03/16 04:30 PT 14.7 Seconds (9.4-12.1) H 06/28/16 21:37 ABG pO2 49 mmHg (85-104) L* 06/29/16 10:28 ABG HCO3 27.3 mEQ/L (21-27) H 06/29/16 10:28 ABG Total CO2 28.6 mEq/L (20-26) H 06/29/16 10:28 ABG O2 Saturation 85 % (95-98) L 06/29/16 10:28 Carbon Dioxide 30 mEq/L (19-29) H 07/03/16 04:30 Glucose 129 mg/dL (70-99) H 07/03/16 04:30 POC Glucose 130 (58-89) H 06/29/16 16:04 Calcium 8.5 mg/dL (8.6-10.8) L 07/03/16 04:30 Iron 22 mcg/dL (65-175) L 06/30/16 05:03 % Saturation 10 % (20-55) L 06/30/16 05:03 Transferrin 154 mg/dL (174-364) L 06/30/16 05:03 B-Natriuretic Peptide 128 pg/mL (0-100) H 06/28/16 21:37 Albumin 2.1 g/dL (3.5-5.0) L 06/28/16 21:37 Globulin 4.0 g/dL (2.4-3.5) H 06/28/16 21:37 Albumin/Globulin Ratio 0.5 (1.1-2.2) L 06/28/16 21:37 Vitamin B12 869 pg/mL (213-816) H 06/29/16 02:52 Urine Color [place] (Yellow) A 06/28/16 20:50 Ur Specific [place] 1.026 (1.010-1.025) H 06/28/16 20:50 Urine Protein 100 mg/dL (Neg-Trace) H 06/28/16 20:50 Urine Ketones Trace mg/dL (Negative) H 06/28/16 20:50 Urine Blood Moderate (Negative) H 06/28/16 20:50 Urine Bilirubin Moderate (Negative) H 06/28/16 20:50 Urine Urobilinogen 2.0 mg/dL (Normal) H 06/28/16 20:50 Ur Leukocyte Esterase Small (Negative) H 06/28/16 20:50 Urine Microscopic RBC 50-100 per hpf (0-3) H 06/28/16 20:50 Urine Microscopic WBC 5-15 per hpf (0-3) H 06/28/16 20:50 Amorphous Sediment Many (Few) H 06/28/16 20:50 Urine Bacteria Many per hpf (None-Few) H 06/28/16 20:50 Granular Casts Many per lpf (None Seen) H 06/28/16 20:50 Urine Mucus Moderate (Few) H 06/28/16 20:50 Ur Culture Indicated? YES (NO) A 06/28/16 20:50 - Diagnostic Findings CT scan - chest: report reviewed, image reviewed - Clinical Findings Intake & Output: Intake & Output 07/02/16 07/03/16 07/03/16 23:59 07:59 15:59 Intake Total 200 / 200 100 / 100 340 / 340 Output Total 300 / 300 525 / 525 Balance -100 / -100 -425 / -425 340 / 340 Weight 81.6 kg Consult Discharge Plan - Plan [facility]: [facility] [Primary Care Provider] -
[2016-07-03] MEDS ORDERED: levoFLOXacin 500 MG TABLET PO SCH (21:00)
[2016-07-03] MEDS: Levofloxacin 500 MG/100 ML 500 MG/100 ML BAG IVPB SCH (21:09)
[2016-07-04] MEDS: Vancomycin 1,000 MG in D5% in Water 250 ML IVPB SCH ×2 (02:43→14:57)
[2016-07-04] MEDS: Ipratropium/Albuterol Neb 3 ML IH SCH ×4 (04:14→22:40)
[2016-07-04 05:33] LABS: Hematocrit 31.5 % (37.5-50.1); Hemoglobin 9.6 g/dL (12.9-16.9); Mean Corpuscular HGB Conc 30.5 g/dL (31.6-35.5); Mean Corpuscular Hemoglobin 26.7 pg (28.0-33.3); Mean Corpuscular Volume 87.7 fL (83.0-100.0); Mean Platelet Volume 10.5 fL (9.4-12.4); Nucleated Red Blood Cells 0.4 /100 WBC (0); Platelet Count 394 K/mcL (140-400); Red Blood Count 3.59 M/mcL (4.19-5.50); Red Cell Distribution Width 16.9 % (11.5-14.5)
[2016-07-04] MEDS: *HR* Heparin 5,000 UNIT/ML VIAL SQ SCH ×2 (05:43→17:28)
[2016-07-04 05:54] LABS: Lymphocytes # 1.1 K/mcL (0.6-4.6); Monocytes # 0.7 K/mcL (0.0-1.3); Neutrophils # 15.1 K/mcL (1.6-8.9); Platelet Estimate Normal (Normal)
[2016-07-04] MEDS: methylPREDNISolone 125 MG/2 ML VIAL IVP SCH ×2 (09:50→17:29)
[2016-07-04] MEDS: Piperacillin/Tazobactam 3.375 GM in D5% in Water (Mini-Bag+) 100 ML IVPB SCH ×2 (09:50→17:29)
[2016-07-04] MEDS: GuaiFENesin/Codeine Oral Soln 5 ML UDC PO SCH ×4 (09:52→23:03)
[2016-07-04] MEDS: cloZAPine 100 MG TABLET PO SCH (09:52)
[2016-07-04] MEDS: Multivit/Ca/Min/Fe/FA 1 TAB TABLET PO SCH (09:52)
[2016-07-04] MEDS: lamoTRIgine 100 MG TABLET PO SCH (09:53)
[2016-07-04] MEDS: Loratadine 10 MG TABLET PO SCH (09:53)
[2016-07-04] MEDS: Cholecalciferol (D-3) 1,000 UNIT TABLET PO SCH (09:54)
[2016-07-04] MEDS ORDERED: Sodium Chloride for inhalation 3 ML VIAL IH ONE (10:19)
[2016-07-04] MEDS: Budesonide/Formoterol 160/4.5 MDI IH SCH ×2 (10:21→22:40)
[2016-07-04 10:48] LABS: BUN/Creatinine Ratio 27 (6-26); Blood Urea Nitrogen 23 mg/dL (8-26); eGFR For African Americans > 60 (> 60); eGFR For Non-African Americans > 60 (> 60)
--- NOTE | 2016-07-04 13:11 | Internal Med Progress Note ---
Date of Encounter: 07/04/16 Time of Encounter: 13:07 - Assessment and plan (1) Sepsis Current Visit: Yes Status: Acute Assessment and plan: 2/2 HCAP Improving. Resident of the [place] 06/29/16 WBC 24.5, Resp 30, HR 97, BP 106/63 06/30/16 WBC 9.4, resp 18, HR 100, BP 118/71 07/01/16 WBC 16.9 ( bump likely 2/2 steroids), resp 17, HR 105, BP 173/93 07/02/16 WBC 14.3 Resp 18, HR 99, BP 145/80 Continue NS IVF 125 ml/hr blood cx pending. NGTD monitor vitals and labs Continue Vanc, Zosyn, and Levoflaxacin (day 4) 07/03/2015 -noted today WBC count is 15.6 - Band cells 34% - Afebrile/ BP: 133/78, - On Vanco/Zosyn /Levofloxacin : Day 5 - CT Chest abdomen and pelvis : no obvious source of infection other than HCAP - will repeat CBC stat. 07/04/2015 -Gradually trending upwards WBC. -Noted that WBC count is 17.5. -There are no band cells present. -Vital parameters are stable. -On Vanco/Zosyn/Levaquin: Day 6 -We will discontinue vancomycin today. -If patient gets febrile or clinically worsen then we will restart the vancomycin. -Renal function is within normal limits. - Qualifiers: Sepsis type: sepsis due to unspecified organism Qualified Code(s): A41.9 - Sepsis, unspecified organism (2) Healthcare associated bacterial pneumonia Current Visit: Yes Status: Acute Assessment and plan: Patient lives at the [place]. CXR showed infiltrates in the right mid and right lower lobe consistent with pneumonia. Vancomycin, Zosyn and Levaquin for HCAP (day 4) continuous IV fluids of 0.9NS at 125mL/hr duoneb treatments QID albuterol nebulizer Q2h PRN titrate O2 to maintain saturation > 92% blood cx pending vanc trough 18.5 07/03/2016 will continue present management. 07/04/2016. -We will continue present treatment. (3) Anemia Current Visit: Yes Status: Acute Assessment and plan: Hgb 07/01/16 8.6, 07/02/16 8.2 patient denies any melena or hemoptysis iron studies: Iron 22, %sat 10, transferrin 154. Iron deficiency anemia. Ferrous sulfate 325 mg BID stool occult sent to lab: pending may require transfusion if hemoglobin is less than 7 07/04/2016. -Hemoglobin is stable at around 9.5. -Patient does not need transfusion at this point. Qualifiers: Anemia type: unspecified type Qualified Code(s): D64.9 - Anemia, unspecified (4) Elevated troponin Current Visit: Yes Status: Acute Assessment and plan: Troponin .04, .02, .02 no chest pain at this time or prior to arrival. most likely secondary to COPD and pneumonia (5) DVT prophylaxis Current Visit: Yes Status: Acute Assessment and plan: encourage ambulation antiembolic stockings heparin 5,000us SQ BID Medical decision making: Patient is at risk of worsening infection as we do not know exact nature of the underlying microbiology. Patient refused for bronchoscopy. - Subjective Interval history: seen and examined. still occasional cough and SOB no new complaints. 07/04/2016. Patient seen and examined. Chart reviewed. - Constitutional Vitals: Temp Pulse Resp BP Pulse Ox 97.5 F L 110 18 172/74 96 07/04/16 08:00 07/04/16 08:00 07/04/16 10:31 07/04/16 08:00 07/04/16 10:31 General appearance: Present: mild distress, A&O X 3 - Head Head exam: Present: atraumatic, normocephalic - Eye Eye exam: Present: PERRL, conjuntiva pink, sclera anicteric Pupils: Present: PERRL - Neck Neck exam general surgery: Present: supple, trachea midline. Absent: lymphadenopathy - Respiratory Respiratory exam: Present: CTAB. Absent: accessory muscle use, rales, rhonchi, wheezes - Cardiovascular Cardiovascular exam: Present: RRR, +S1, +S2. Absent: diastolic murmur, gallop, rubs, systolic murmur - GI/Abdominal GI/Abdominal exam: Present: normal bowel sounds, soft, no peritoneal signs. Absent: distended, tenderness - Extremities Exam Extremities exam: Present: warm, radial pulses palpable and symetrical. Absent : calf tenderness, cyanotic, pedal edema - Neurological Exam Neurological exam: Present: CN II-XII intact, oriented X3, no focal deficits. Absent: pronater drift, facial droop, speech deficit - Skin Skin exam: Present: dry, intact Internal Medicine: Result - Labs CBC & Chem 7: 07/04/16 05:20 07/04/16 10:05 Labs: Short CBC 07/04/16 Range/Units 05:20 WBC 17.5 H (4.3-11.1) K/mcL Hgb 9.6 L (12.9-16.9) g/dL Hct 31.5 L (37.5-50.1) % Plt Count 394 (140-400) K/mcL Neutrophils # 15.1 H (1.6-8.9) K/mcL BMP 07/04/16 10:05 BUN 23 Creatinine 0.86 - ABG Interpretation ABG results: ABG ABG pH 7.41 pH Units (7.32-7.45) 06/29/16 10:28 ABG pCO2 43 mmHg (35-45) 06/29/16 10:28 ABG pO2 49 mmHg (85-104) L* 06/29/16 10:28 ABG O2 Saturation 85 % (95-98) L 06/29/16 10:28 PT/INR, D-dimer PT 14.7 Seconds (9.4-12.1) H 06/28/16 21:37 - VTE Documentation of Mechanical Device: Graduated compression elastic hosiery Consult Discharge Plan - Plan [facility]errals: [facility] [Primary Care Provider] -
[2016-07-04] MEDS: Levofloxacin 500 MG/100 ML 500 MG/100 ML BAG IVPB SCH (23:04)
[2016-07-05] MEDS: methylPREDNISolone 125 MG/2 ML VIAL IVP SCH ×3 (01:55→17:18)
[2016-07-05] MEDS: Piperacillin/Tazobactam 3.375 GM in D5% in Water (Mini-Bag+) 100 ML IVPB SCH ×3 (01:58→17:19)
[2016-07-05] MEDS: Vancomycin 1,000 MG in D5% in Water 250 ML IVPB SCH ×2 (02:02→14:44)
[2016-07-05] MEDS: Ipratropium/Albuterol Neb 3 ML IH SCH ×4 (04:07→22:41)
[2016-07-05] MEDS: *HR* Heparin 5,000 UNIT/ML VIAL SQ SCH ×2 (05:59→17:19)
[2016-07-05] MEDS: lamoTRIgine 100 MG TABLET PO SCH (09:20)
[2016-07-05] MEDS: cloZAPine 100 MG TABLET PO SCH ×2 (09:30→22:24)
[2016-07-05] MEDS: Cholecalciferol (D-3) 1,000 UNIT TABLET PO SCH (09:31)
[2016-07-05] MEDS: Loratadine 10 MG TABLET PO SCH (09:31)
[2016-07-05] MEDS: Multivit/Ca/Min/Fe/FA 1 TAB TABLET PO SCH (09:31)
[2016-07-05] MEDS: GuaiFENesin/Codeine Oral Soln 5 ML UDC PO SCH ×4 (09:38→22:23)
[2016-07-05] MEDS: Budesonide/Formoterol 160/4.5 MDI IH SCH ×2 (11:00→22:41)
--- NOTE | 2016-07-05 13:45 | Internal Med Progress Note ---
<Dru Amezquita - Last Filed: 07/05/16 14:16> Date of Encounter: 07/05/16 Time of Encounter: 13:10 - Assessment and plan (1) Sepsis Current Visit: Yes Status: Acute Assessment and plan: 2/2 HCAP Improving. Resident of the [place] 06/29/16 WBC 24.5, Resp 30, HR 97, BP 106/63 06/30/16 WBC 9.4, resp 18, HR 100, BP 118/71 07/01/16 WBC 16.9 ( bump likely 2/2 steroids), resp 17, HR 105, BP 173/93 07/02/16 WBC 14.3 Resp 18, HR 99, BP 145/80 07/03/16 WBC 15.6 07/04/16 WBC 17.5 Leukocytosis likely result of steroid usage blood cx pending. No growth to date monitor vitals and labs Continue Vanc, Zosyn, and Levoflaxacin (day 7) - CT Chest abdomen and pelvis : no obvious source of infection other than HCAP -Gradually trending upwards WBC. -Noted that WBC count is 17.5. -There are no band cells present. -Vital parameters are stable. -On Vanco/Zosyn/Levaquin: Day 7 -Vancomycin discontinued yesterday -If patient gets febrile or clinically worsen then we will restart the vancomycin. -Renal function is within normal limits. Qualifiers: Sepsis type: sepsis due to unspecified organism Qualified Code(s): A41.9 - Sepsis, unspecified organism (2) Healthcare associated bacterial pneumonia Current Visit: Yes Status: Acute Assessment and plan: Patient lives at the [place]. CXR showed infiltrates in the right mid and right lower lobe consistent with pneumonia. Vancomycin, Zosyn and Levaquin for HCAP (day 5) duoneb treatments QID albuterol nebulizer Q2h PRN titrate O2 to maintain saturation > 92% blood cx pending vanc trough 18.5 -We will continue present treatment. (3) Anemia Current Visit: Yes Status: Acute Assessment and plan: Hgb 07/01/16 8.6, 07/02/16 8.2, 07/03/16 9.0. 07/04/16 9.6 patient denies any melena or hemoptysis iron studies: Iron 22, %sat 10, transferrin 154. Iron deficiency anemia. Continue Ferrous sulfate 325 mg BID stool occult sent to lab: pending may require transfusion if hemoglobin is less than 7 -Hemoglobin is stable at 9.6 -Patient does not need transfusion at this point. We will continue monitor Qualifiers: Anemia type: unspecified type Qualified Code(s): D64.9 - Anemia, unspecified (4) Elevated troponin Current Visit: Yes Status: Acute Assessment and plan: Troponin .04, .02, .02 no chest pain at this time or prior to arrival. most likely secondary to COPD and pneumonia (5) DVT prophylaxis Current Visit: Yes Status: Acute Assessment and plan: encourage ambulation antiembolic stockings heparin 5,000us SQ BID Medical decision making: Patient is at risk of worsening infection as we do not know exact nature of the underlying microbiology. Patient refused for bronchoscopy. - Subjective Interval history: Patient reports having continued cough and feels she is still somewhat short of breath. He denies fever/chills, denies chest pain, denies abdominal pain - Constitutional Vitals: Temp Pulse Resp BP Pulse Ox 97.2 F L 118 20 130/80 91 L 07/05/16 12:03 07/05/16 12:03 07/05/16 12:03 07/05/16 12:03 07/05/16 12:03 General appearance: Present: mild distress, A&O X 3 Exam: General: Cooperative, pleasant, no acute distress, alert and oriented 3, answers questions appropriately Head: Normocephalic, atraumatic Eye: Conjunctiva pink, sclera anicteric, EOMI, PERRL, pinpoint pupils Neck: Supple, trachea midline Respiratory: No accessory muscle usage, rails on auscultation R>L, coughs frequently, on high flow oxygen Cardiovascular: Regular rhythm, tachycardic, S1 and S2 present, no murmurs/rubs/ gallops/clicks appreciated GI/abdominal: Nondistended, nontender, soft, normal bowel sounds, no peritoneal signs Extremities: No calf tenderness, noncyanotic, no pedal edema appreciated, warm, lower extremity pulses palpable and symmetrical Neurological: Alert and oriented 3, no facial droop, no focal deficits Skin: Dry, intact, normal color Internal Medicine: Result - Labs CBC & Chem 7: 07/04/16 05:20 07/04/16 10:05 - ABG Interpretation ABG results: ABG ABG pH 7.41 pH Units (7.32-7.45) 06/29/16 10:28 ABG pCO2 43 mmHg (35-45) 06/29/16 10:28 ABG pO2 49 mmHg (85-104) L* 06/29/16 10:28 ABG O2 Saturation 85 % (95-98) L 06/29/16 10:28 PT/INR, D-dimer PT 14.7 Seconds (9.4-12.1) H 06/28/16 21:37 - VTE Documentation of Mechanical Device: Graduated compression elastic hosiery Consult Discharge Plan - Plan Referrals: [facility] [Primary Care Provider] - 07/22/16 12:30 pm <Balta Garcia - Last Filed: 07/05/16 18:20> Date of Encounter: 07/05/16 - Assessment and plan (1) Sepsis Current Visit: Yes Status: Acute Qualifiers: Sepsis type: sepsis due to unspecified organism Qualified Code(s): A41.9 - Sepsis, unspecified organism (2) Healthcare associated bacterial pneumonia Current Visit: Yes Status: Acute (3) Anemia Current Visit: Yes Status: Acute Qualifiers: Anemia type: unspecified type Qualified Code(s): D64.9 - Anemia, unspecified (4) Elevated troponin Current Visit: Yes Status: Acute (5) DVT prophylaxis Current Visit: Yes Status: Acute - Constitutional Vitals: Temp Pulse Resp BP Pulse Ox 97.7 F 102 16 123/66 96 07/05/16 15:09 07/05/16 15:09 07/05/16 15:09 07/05/16 15:09 07/05/16 15:09 Internal Medicine: Result - Labs CBC & Chem 7: 07/04/16 05:20 07/04/16 10:05 - ABG Interpretation ABG results: ABG ABG pH 7.41 pH Units (7.32-7.45) 06/29/16 10:28 ABG pCO2 43 mmHg (35-45) 06/29/16 10:28 ABG pO2 49 mmHg (85-104) L* 06/29/16 10:28 ABG O2 Saturation 85 % (95-98) L 06/29/16 10:28 PT/INR, D-dimer PT 14.7 Seconds (9.4-12.1) H 06/28/16 21:37 - Attending Attestation I examined this patient and my medical decision-making was reviewed with the [employer]/PA/Advanced Practice Nurse/Resident Physician. I agree with the documented findings, disposition and treatment plan as described except to the extent set forth below.
[2016-07-05] MEDS ORDERED: Mag Hydrox/Al Hydrox/Simeth 30 ML UDC PO PRN (22:30)
[2016-07-05] MEDS: Levofloxacin 500 MG/100 ML 500 MG/100 ML BAG IVPB SCH (22:50)
[2016-07-05] MEDS: Famotidine 20 MG TABLET PO SCH (22:50)
[2016-07-06] MEDS: methylPREDNISolone 125 MG/2 ML VIAL IVP SCH ×3 (00:34→17:50)
[2016-07-06] MEDS: Piperacillin/Tazobactam 3.375 GM in D5% in Water (Mini-Bag+) 100 ML IVPB SCH ×3 (00:34→17:50)
[2016-07-06] MEDS: Vancomycin 1,000 MG in D5% in Water 250 ML IVPB SCH (03:08)
[2016-07-06] MEDS: Ipratropium/Albuterol Neb 3 ML IH SCH ×4 (04:11→21:00)
[2016-07-06 05:06] LABS: Basophils % 0.1 %; Hematocrit 34.5 % (37.5-50.1); Hemoglobin 10.4 g/dL (12.9-16.9); Immature Granulocytes % 11.2 % (0-4); Lymphocytes % 6.9 %; Mean Corpuscular HGB Conc 30.1 g/dL (31.6-35.5); Mean Corpuscular Hemoglobin 26.5 pg (28.0-33.3); Mean Platelet Volume 10.3 fL (9.4-12.4); Monocytes # 0.7 K/mcL (0.0-1.3); Monocytes % 3.6 %; Platelet Count 362 K/mcL (140-400); Red Blood Count 3.92 M/mcL (4.19-5.50); Red Cell Distribution Width 17.2 % (11.5-14.5); Segmented Neutrophils % 78.2 %
[2016-07-06 05:19] LABS: BUN/Creatinine Ratio 29 (6-26); Blood Urea Nitrogen 23 mg/dL (8-26); Calcium 8.5 mg/dL (8.6-10.8); Carbon Dioxide 38 mEq/L (19-29); Chloride 99 mEq/L (98-109); Glucose 181 mg/dL (70-99); Osmolality,Calculated 306 (280-300); Potassium 3.8 mEq/L (3.5-4.5); Sodium 144 mEq/L (136-145); eGFR For African Americans > 60 (> 60); eGFR For Non-African Americans > 60 (> 60)
[2016-07-06 05:36] LABS: Lymphocytes # 1.3 K/mcL (0.6-4.6); Neutrophils # 14.2 K/mcL (1.6-8.9)
[2016-07-06 06:12] LABS: Anisocytosis 1+ (Not Present); Platelet Estimate Normal (Normal); Poikilocytosis 1+ (Not Present); Polychromasia 1+ (Not Present); Reactive Lymphocytes Present (Not Present); Toxic Granulation Present (Not Present); Toxic Vacuolation Present (Not Present)
[2016-07-06] MEDS: *HR* Heparin 5,000 UNIT/ML VIAL SQ SCH ×2 (06:26→17:50)
--- NOTE | 2016-07-06 10:29 | Internal Med Progress Note ---
<Dru Amezquita - Last Filed: 07/06/16 10:26> Date of Encounter: 07/06/16 Time of Encounter: 08:40 - Assessment and plan (1) Sepsis Current Visit: Yes Status: Acute Assessment and plan: 2/2 HCAP Improving. Resident of the CT 06/29/16 WBC 24.5, Resp 30, HR 97, BP 106/63 06/30/16 WBC 9.4, resp 18, HR 100, BP 118/71 07/01/16 WBC 16.9 ( bump likely 2/2 steroids), resp 17, HR 105, BP 173/93 07/02/16 WBC 14.3 Resp 18, HR 99, BP 145/80 07/03/16 WBC 15.6 07/04/16 WBC 17.5 07/06/16 WBC 18.1 Leukocytosis likely result of steroid usage blood cx pending. No growth to date monitor vitals and labs Continue Vanc, Zosyn, and Levoflaxacin (day 7) - CT Chest abdomen and pelvis : no obvious source of infection other than HCAP -Gradually trending upwards WBC. -Noted that WBC count is 18.1 -There are no band cells present. -Patient has been having tachycardia since about noon yesterday, blood pressure stable -On Zosyn/Levaquin: Day 8 Vanco Day 7 -Vancomycin discontinued on 07/04/16, restarted 07/05/16 -If patient gets febrile or clinically worsen then we will restart the vancomycin. -Renal function is within normal limits. Qualifiers: Sepsis type: sepsis due to unspecified organism Qualified Code(s): A41.9 - Sepsis, unspecified organism (2) Healthcare associated bacterial pneumonia Current Visit: Yes Status: Acute Assessment and plan: Patient lives at the [place]. CXR showed infiltrates in the right mid and right lower lobe consistent with pneumonia. Vancomycin, Zosyn and Levaquin for HCAP (day 8) duoneb treatments QID albuterol nebulizer Q2h PRN titrate O2 to maintain saturation > 92% blood cx showing no growth to date -We will continue present treatment -Plan as above (3) Anemia Current Visit: Yes Status: Acute Assessment and plan: Hgb 07/01/16 8.6, 07/02/16 8.2, 07/03/16 9.0. 07/04/16 9.6 07/06/16 10.4 patient denies any melena or hemoptysis iron studies: Iron 22, %sat 10, transferrin 154. Iron deficiency anemia. Continue Ferrous sulfate 325 mg BID stool occult sent to lab: pending may require transfusion if hemoglobin is less than 7 -Hemoglobin is stable at 10.4 -Patient does not need transfusion at this point. -We will continue monitor Qualifiers: Anemia type: unspecified type Qualified Code(s): D64.9 - Anemia, unspecified (4) Elevated troponin Current Visit: Yes Status: Acute Assessment and plan: Troponin .04, .02, .02 no chest pain at this time or prior to arrival. most likely secondary to COPD and pneumonia (5) DVT prophylaxis Current Visit: Yes Status: Acute Assessment and plan: encourage ambulation antiembolic stockings heparin 5,000us SQ BID Medical decision making: Patient is at risk of worsening infection as we do not know exact nature of the underlying microbiology. Patient refused for bronchoscopy. - Subjective Interval history: Patient reports having continued cough and feels he is still somewhat short of breath. He reports having mild fever last night, he denies chest pain, denies abdominal pain, denies nausea, denies vomiting. - Constitutional Vitals: Temp Pulse Resp BP Pulse Ox 97.8 F 108 20 167/111 94 L 07/06/16 07:48 07/06/16 07:48 07/06/16 07:48 07/06/16 07:48 07/06/16 07:48 General appearance: Present: mild distress, A&O X 3 Exam: General: Cooperative, pleasant, no acute distress, alert and oriented 3, answers questions appropriately Head: Normocephalic, atraumatic Eye: Conjunctiva pink, sclera anicteric, EOMI, pupils pinpoint Neck: Supple, trachea midline Respiratory: No accessory muscle usage, Rales auscultated R>L, slight diffuse wheezes Cardiovascular: Regular rhythm, tachycardia, S1 and S2 present, no murmurs/rubs/ gallops/clicks appreciated GI/abdominal: Nondistended, nontender, soft, normal bowel sounds, no peritoneal signs Extremities: No calf tenderness, noncyanotic, no pedal edema appreciated, warm, lower extremity pulses palpable and symmetrical Neurological: Alert and oriented 3, no facial droop, no focal deficits Skin: Dry, intact, normal color Internal Medicine: Result - Labs CBC & Chem 7: 07/06/16 04:53 07/06/16 04:53 Labs: Short CBC 07/06/16 Range/Units 04:53 WBC 18.1 H (4.3-11.1) K/mcL Hgb 10.4 L (12.9-16.9) g/dL Hct 34.5 L (37.5-50.1) % Plt Count 362 (140-400) K/mcL Neutrophils # 14.2 H (1.6-8.9) K/mcL BMP 07/06/16 04:53 Sodium 144 Potassium 3.8 Chloride 99 Carbon Dioxide 38 H BUN 23 Creatinine 0.78 Glucose 181 H Calcium 8.5 L - ABG Interpretation ABG results: ABG ABG pH 7.41 pH Units (7.32-7.45) 06/29/16 10:28 ABG pCO2 43 mmHg (35-45) 06/29/16 10:28 ABG pO2 49 mmHg (85-104) L* 06/29/16 10:28 ABG O2 Saturation 85 % (95-98) L 06/29/16 10:28 PT/INR, D-dimer PT 14.7 Seconds (9.4-12.1) H 06/28/16 21:37 - VTE Documentation of Mechanical Device: Graduated compression elastic hosiery Consult Discharge Plan - Plan Referrals: CT,PCP [Primary Care Provider] - 07/22/16 12:30 pm <Balta Garcia P - Last Filed: 07/06/16 16:48> Date of Encounter: 07/06/16 - Assessment and plan (1) Sepsis Current Visit: Yes Status: Acute Qualifiers: Sepsis type: sepsis due to unspecified organism Qualified Code(s): A41.9 - Sepsis, unspecified organism (2) Healthcare associated bacterial pneumonia Current Visit: Yes Status: Acute (3) Anemia Current Visit: Yes Status: Acute Qualifiers: Anemia type: unspecified type Qualified Code(s): D64.9 - Anemia, unspecified (4) Elevated troponin Current Visit: Yes Status: Acute (5) DVT prophylaxis Current Visit: Yes Status: Acute - Constitutional Vitals: Temp Pulse Resp BP Pulse Ox 97.4 F L 112 18 128/74 92 L 07/06/16 16:31 07/06/16 16:31 07/06/16 16:31 07/06/16 16:31 07/06/16 16:31 Internal Medicine: Result - Labs CBC & Chem 7: 07/06/16 04:53 07/06/16 04:53 Labs: Short CBC 07/06/16 Range/Units 04:53 WBC 18.1 H (4.3-11.1) K/mcL Hgb 10.4 L (12.9-16.9) g/dL Hct 34.5 L (37.5-50.1) % Plt Count 362 (140-400) K/mcL Neutrophils # 14.2 H (1.6-8.9) K/mcL BMP 07/06/16 04:53 Sodium 144 Potassium 3.8 Chloride 99 Carbon Dioxide 38 H BUN 23 Creatinine 0.78 Glucose 181 H Calcium 8.5 L - ABG Interpretation ABG results: ABG ABG pH 7.41 pH Units (7.32-7.45) 06/29/16 10:28 ABG pCO2 43 mmHg (35-45) 06/29/16 10:28 ABG pO2 49 mmHg (85-104) L* 06/29/16 10:28 ABG O2 Saturation 85 % (95-98) L 06/29/16 10:28 PT/INR, D-dimer PT 14.7 Seconds (9.4-12.1) H 06/28/16 21:37 - Attending Attestation I examined this patient and my medical decision-making was reviewed with the MODERN DANCER/PA/Advanced Practice Nurse/Resident Physician. I agree with the documented findings, disposition and treatment plan as described except to the extent set forth below.
[2016-07-06] MEDS: Loratadine 10 MG TABLET PO SCH (10:48)
[2016-07-06] MEDS: Famotidine 20 MG TABLET PO SCH ×2 (10:49→22:42)
[2016-07-06] MEDS: GuaiFENesin/Codeine Oral Soln 5 ML UDC PO SCH ×2 (10:49→16:54)
[2016-07-06] MEDS: Multivit/Ca/Min/Fe/FA 1 TAB TABLET PO SCH (10:49)
[2016-07-06] MEDS: Cholecalciferol (D-3) 1,000 UNIT TABLET PO SCH (10:49)
[2016-07-06] MEDS: lamoTRIgine 100 MG TABLET PO SCH (10:49)
[2016-07-06] MEDS: cloZAPine 100 MG TABLET PO SCH ×2 (10:49→22:42)
[2016-07-06] MEDS: Budesonide/Formoterol 160/4.5 MDI IH SCH ×2 (10:54→21:00)
[2016-07-06] MEDS ORDERED: Vancomycin 750 MG in D5% in Water 250 ML IVPB SCH (14:00)
[2016-07-06] MEDS: Benzonatate 100 MG CAPSULE PO PRN ×2 (17:49→22:42)
[2016-07-06] MEDS: Albuterol 2.5 MG/3 ML NEBULIZER IH PRN (21:39)
[2016-07-06] MEDS: Levofloxacin 500 MG/100 ML 500 MG/100 ML BAG IVPB SCH (22:42)
[2016-07-07] MEDS: methylPREDNISolone 125 MG/2 ML VIAL IVP SCH ×4 (00:50→23:42)
[2016-07-07] MEDS: Piperacillin/Tazobactam 3.375 GM in D5% in Water (Mini-Bag+) 100 ML IVPB SCH ×4 (00:51→23:41)
[2016-07-07] MEDS: Ipratropium/Albuterol Neb 3 ML IH SCH ×4 (03:59→23:26)
[2016-07-07] MEDS: *HR* Heparin 5,000 UNIT/ML VIAL SQ SCH ×2 (05:36→17:37)
[2016-07-07 08:07] LABS: Hematocrit 29.1 % (37.5-50.1); Hemoglobin 9.1 g/dL (12.9-16.9); Immature Platelets 4.2 % (1.1-6.1); Mean Corpuscular HGB Conc 31.3 g/dL (31.6-35.5); Mean Corpuscular Hemoglobin 27.5 pg (28.0-33.3); Mean Corpuscular Volume 87.9 fL (83.0-100.0); Mean Platelet Volume 10.2 fL (9.4-12.4); Platelet Count 286 K/mcL (140-400); Red Blood Count 3.31 M/mcL (4.19-5.50)
[2016-07-07 08:20] LABS: BUN/Creatinine Ratio 35 (6-26); Blood Urea Nitrogen 26 mg/dL (8-26); Calcium 8.2 mg/dL (8.6-10.8); Chloride 99 mEq/L (98-109); Glucose 135 mg/dL (70-99); Osmolality,Calculated 307 (280-300); Potassium 3.9 mEq/L (3.5-4.5); Sodium 145 mEq/L (136-145); eGFR For African Americans > 60 (> 60); eGFR For Non-African Americans > 60 (> 60)
[2016-07-07 08:25] LABS: Carbon Dioxide 41 mEq/L (19-29)
[2016-07-07 08:52] LABS: Monocytes # 0.2 K/mcL (0.0-1.3); Neutrophils # 15.6 K/mcL (1.6-8.9); Platelet Estimate Normal (Normal)
[2016-07-07] MEDS ORDERED: Aminoglycoside Consult 1 EACH MC ONE (09:29)
[2016-07-07] MEDS: Cholecalciferol (D-3) 1,000 UNIT TABLET PO SCH (09:37)
[2016-07-07] MEDS: Loratadine 10 MG TABLET PO SCH (09:40)
[2016-07-07] MEDS: lamoTRIgine 100 MG TABLET PO SCH (09:40)
--- NOTE | 2016-07-07 09:40 | Internal Med Progress Note ---
<Dru Amezquita - Last Filed: 07/07/16 09:38> Date of Encounter: 07/07/16 Time of Encounter: 08:40 - Assessment and plan (1) Sepsis Current Visit: Yes Status: Acute Assessment and plan: 2/2 HCAP Improving. Resident of the [place] 06/29/16 WBC 24.5, Resp 30, HR 97, BP 106/63 06/30/16 WBC 9.4, resp 18, HR 100, BP 118/71 07/01/16 WBC 16.9 ( bump likely 2/2 steroids), resp 17, HR 105, BP 173/93 07/02/16 WBC 14.3 Resp 18, HR 99, BP 145/80 07/03/16 WBC 15.6 07/04/16 WBC 17.5 07/06/16 WBC 18.1 04/06/17 WBC 17.3 Leukocytosis likely result of steroid usage blood cx pending. No growth to date Sputum culture showed yeast monitor vitals and labs Continue Zosyn, and Levoflaxacin (day 8) Vancomycin stopped yesterday - CT Chest abdomen and pelvis : no obvious source of infection other than HCAP Patient having worsening shortness of breath, accessory muscle usage -WBC slightly down today -Noted that WBC count is 17.3 -1 Banzel today -Patient has been having tachycardia since about noon yesterday, blood pressure stable -On Zosyn/Levaquin: Day 8 -Vancomycin discontinued -Renal function is within normal limits. We will obtain ABG We will start BiPAP Qualifiers: Sepsis type: sepsis due to unspecified organism Qualified Code(s): A41.9 - Sepsis, unspecified organism (2) Healthcare associated bacterial pneumonia Current Visit: Yes Status: Acute Assessment and plan: Patient lives at the [place]. CXR showed infiltrates in the right mid and right lower lobe consistent with pneumonia. Vancomycin, Zosyn and Levaquin for HCAP (day 8) duoneb treatments QID albuterol nebulizer Q2h PRN titrate O2 to maintain saturation > 92% blood cx showing no growth to date -We will continue present treatment -Plan as above (3) Anemia Current Visit: Yes Status: Acute Assessment and plan: Hgb 07/01/16 8.6 07/02/16 8.2, 07/03/16 9.0. 07/04/16 9.6 07/06/16 10.4 07/07/16 9.1 patient denies any melena or hemoptysis iron studies: Iron 22, %sat 10, transferrin 154. Iron deficiency anemia. Continue Ferrous sulfate 325 mg BID stool occult sent to lab: pending may require transfusion if hemoglobin is less than 7 -Hemoglobin is stable -Patient does not need transfusion at this point. -We will continue monitor Qualifiers: Anemia type: unspecified type Qualified Code(s): D64.9 - Anemia, unspecified (4) Elevated troponin Current Visit: Yes Status: Acute Assessment and plan: Troponin .04, .02, .02 no chest pain at this time or prior to arrival. most likely secondary to COPD and pneumonia (5) DVT prophylaxis Current Visit: Yes Status: Acute Assessment and plan: encourage ambulation antiembolic stockings heparin 5,000us SQ BID Medical decision making: Patient is at risk of worsening infection as we do not know exact nature of the underlying microbiology. Patient refused for bronchoscopy. - Subjective Interval history: Patient reports increased shortness of breath, he denies cough, denies fever, denies chest pain, denies lightheadedness. We had a discussion about his CODE STATUS morning, he states that she would like to pursue less invasive modalities of treatment at the moment and that he is leaning towards more comfort measures, but was still like to continue antibiotics and is interested in BiPAP as needed for his shortness of breath. - Constitutional Vitals: Temp Pulse Resp BP Pulse Ox 98 F 99 14 151/90 95 07/07/16 08:21 07/07/16 08:21 07/07/16 08:21 07/07/16 08:21 07/07/16 08:21 General appearance: Present: mild distress, A&O X 3 Exam: General: Cooperative, pleasant, no acute distress, alert and oriented 3, answers questions appropriately Head: Normocephalic, atraumatic Eye: Conjunctiva pink, sclera anicteric, EOMI, pupils constricted Neck: Supple, trachea midline Respiratory: Accessory muscle use present, less air movement today than yesterday, slight wheeze auscultated over right upper lung, bibasilar Rales appreciated Cardiovascular: Regular rhythm, tachycardia, S1 and S2 present, no murmurs/rubs/ gallops/clicks appreciated GI/abdominal: Nondistended, nontender, soft, normal bowel sounds, no peritoneal signs Extremities: No calf tenderness, noncyanotic, no pedal edema appreciated, warm, lower extremity pulses palpable and symmetrical Neurological: Alert and oriented 3, no facial droop, no focal deficits Skin: Dry, intact, normal color Internal Medicine: Result - Labs CBC & Chem 7: 07/07/16 08:00 07/07/16 08:00 Labs: Short CBC 07/07/16 Range/Units 08:00 WBC 17.3 H (4.3-11.1) K/mcL Hgb 9.1 L (12.9-16.9) g/dL Hct 29.1 L (37.5-50.1) % Plt Count 286 (140-400) K/mcL Neutrophils # 15.6 H (1.6-8.9) K/mcL BMP 07/07/16 08:00 Sodium 145 Potassium 3.9 Chloride 99 Carbon Dioxide 41 H* BUN 26 Creatinine 0.75 Glucose 135 H Calcium 8.2 L - ABG Interpretation ABG results: ABG ABG pH 7.41 pH Units (7.32-7.45) 06/29/16 10:28 ABG pCO2 43 mmHg (35-45) 06/29/16 10:28 ABG pO2 49 mmHg (85-104) L* 06/29/16 10:28 ABG O2 Saturation 85 % (95-98) L 06/29/16 10:28 PT/INR, D-dimer PT 14.7 Seconds (9.4-12.1) H 06/28/16 21:37 - VTE Documentation of Mechanical Device: Graduated compression elastic hosiery Consult Discharge Plan - Plan [facility]errals: [facility] Care Provider[facility] - 07/22/16 12:30 pm <Balta Garcia - Last Filed: 07/07/16 18:00> Date of Encounter: 07/07/16 - Assessment and plan (1) Sepsis Current Visit: Yes Status: Acute Qualifiers: Sepsis type: sepsis due to unspecified organism Qualified Code(s): A41.9 - Sepsis, unspecified organism (2) Healthcare associated bacterial pneumonia Current Visit: Yes Status: Acute (3) Anemia Current Visit: Yes Status: Acute Qualifiers: Anemia type: unspecified type Qualified Code(s): D64.9 - Anemia, unspecified (4) Elevated troponin Current Visit: Yes Status: Acute (5) DVT prophylaxis Current Visit: Yes Status: Acute - Constitutional Vitals: Temp Pulse Resp BP Pulse Ox 98.3 F 98 14 141/85 98 07/07/16 15:24 07/07/16 15:24 07/07/16 15:54 07/07/16 15:24 07/07/16 15:54 Internal Medicine: Result - Labs CBC & Chem 7: 07/07/16 08:00 07/07/16 08:00 Labs: Short CBC 07/07/16 Range/Units 08:00 WBC 17.3 H (4.3-11.1) K/mcL Hgb 9.1 L (12.9-16.9) g/dL Hct 29.1 L (37.5-50.1) % Plt Count 286 (140-400) K/mcL Neutrophils # 15.6 H (1.6-8.9) K/mcL BMP 07/07/16 08:00 Sodium 145 Potassium 3.9 Chloride 99 Carbon Dioxide 41 H* BUN 26 Creatinine 0.75 Glucose 135 H Calcium 8.2 L - ABG Interpretation ABG results: ABG ABG pH 7.46 pH Units (7.32-7.45) H 07/07/16 12:10 ABG pCO2 69 mmHg (35-45) H 07/07/16 12:10 ABG pO2 53 mmHg (85-104) L 07/07/16 12:10 ABG O2 Saturation 89 % (95-98) L 07/07/16 12:10 PT/INR, D-dimer PT 14.7 Seconds (9.4-12.1) H 06/28/16 21:37 - Attending Attestation I examined this patient and my medical decision-making was reviewed with the SHRINKER/PA/Advanced Practice Nurse/Resident Physician. I agree with the documented findings, disposition and treatment plan as described except to the extent set forth below. Legal guardian to discuss with the patient regarding CODE STATUS. Legal guardian understood and would like to keep CODE STATUS as DNR CC
[2016-07-07] MEDS: Famotidine 20 MG TABLET PO SCH ×2 (09:41→22:20)
[2016-07-07] MEDS: Multivit/Ca/Min/Fe/FA 1 TAB TABLET PO SCH (09:41)
[2016-07-07] MEDS: cloZAPine 100 MG TABLET PO SCH ×2 (09:41→22:24)
[2016-07-07] MEDS: Budesonide/Formoterol 160/4.5 MDI IH SCH ×2 (10:31→23:26)
[2016-07-07 12:19] LABS: ABG Base Excess 21.9 mEq/L (-2.0 to 3.0); ABG HCO3 49.1 mEQ/L (21-27); ABG Oxygen Saturation 89 % (95-98); ABG PCO2 69 mmHg (35-45); ABG PH 7.46 pH Units (7.32-7.45); ABG PO2 53 mmHg (85-104); ABG TCO2 51.2 mEq/L (20-26)
[2016-07-07 12:22] LABS: Blood Gas FiO2 56 %
[2016-07-07] MEDS: 0.9 % Sodium Chloride 1,000 ML IVC SCH (13:49)
[2016-07-07] MEDS: Levofloxacin 500 MG/100 ML 500 MG/100 ML BAG IVPB SCH (22:25)
[2016-07-08] MEDS: Ipratropium/Albuterol Neb 3 ML IH SCH ×4 (03:53→22:09)
[2016-07-08] MEDS: *HR* Heparin 5,000 UNIT/ML VIAL SQ SCH ×2 (06:13→17:45)
[2016-07-08 06:31] LABS: Hematocrit 30.8 % (37.5-50.1); Hemoglobin 9.6 g/dL (12.9-16.9); Mean Corpuscular HGB Conc 31.2 g/dL (31.6-35.5); Mean Corpuscular Hemoglobin 27.4 pg (28.0-33.3); Mean Corpuscular Volume 87.7 fL (83.0-100.0); Mean Platelet Volume 10.6 fL (9.4-12.4); Platelet Count 261 K/mcL (140-400); Red Blood Count 3.51 M/mcL (4.19-5.50); Red Cell Distribution Width 17.2 % (11.5-14.5)
[2016-07-08 06:40] LABS: BUN/Creatinine Ratio 34 (6-26); Blood Urea Nitrogen 27 mg/dL (8-26); Calcium 8.2 mg/dL (8.6-10.8); Carbon Dioxide 39 mEq/L (19-29); Chloride 101 mEq/L (98-109); Glucose 132 mg/dL (70-99); Osmolality,Calculated 309 (280-300); Sodium 146 mEq/L (136-145); eGFR For African Americans > 60 (> 60); eGFR For Non-African Americans > 60 (> 60)
[2016-07-08 06:47] LABS: Lymphocytes # 2.1 K/mcL (0.6-4.6); Neutrophils # 15.7 K/mcL (1.6-8.9)
[2016-07-08 06:48] LABS: Platelet Estimate Normal (Normal)
[2016-07-08] MEDS: 0.9 % Sodium Chloride 1,000 ML IVC SCH (10:02)
[2016-07-08] MEDS: methylPREDNISolone 125 MG/2 ML VIAL IVP SCH (10:03)
[2016-07-08] MEDS: Famotidine 20 MG TABLET PO SCH ×2 (10:03→22:19)
[2016-07-08] MEDS: Piperacillin/Tazobactam 3.375 GM in D5% in Water (Mini-Bag+) 100 ML IVPB SCH (10:03)
[2016-07-08] MEDS: lamoTRIgine 100 MG TABLET PO SCH (10:04)
[2016-07-08] MEDS: Cholecalciferol (D-3) 1,000 UNIT TABLET PO SCH (10:04)
[2016-07-08] MEDS: cloZAPine 100 MG TABLET PO SCH ×2 (10:04→22:18)
[2016-07-08] MEDS: Loratadine 10 MG TABLET PO SCH (10:05)
[2016-07-08] MEDS: Multivit/Ca/Min/Fe/FA 1 TAB TABLET PO SCH (10:05)
[2016-07-08] MEDS: Budesonide/Formoterol 160/4.5 MDI IH SCH ×2 (11:21→22:09)
--- NOTE | 2016-07-08 11:30 | Internal Med Progress Note ---
<Dru Amezquita - Last Filed: 07/08/16 15:23> Date of Encounter: 07/08/16 Time of Encounter: 11:15 - Assessment and plan (1) Sepsis Current Visit: Yes Status: Acute Assessment and plan: 2/2 HCAP Improving. Resident of the [place] 06/29/16 WBC 24.5, Resp 30, HR 97, BP 106/63 06/30/16 WBC 9.4, resp 18, HR 100, BP 118/71 07/01/16 WBC 16.9 ( bump likely 2/2 steroids), resp 17, HR 105, BP 173/93 07/02/16 WBC 14.3 Resp 18, HR 99, BP 145/80 07/03/16 WBC 15.6 07/04/16 WBC 17.5 07/06/16 WBC 18.1 07/07/16 WBC 17.3 07/08/16 WBC 17.8 Leukocytosis likely result of steroid usage blood cx pending. No growth to date Sputum culture showed Pau albicans monitor vitals and labs We will discontinue all antibiotics today - CT Chest abdomen and pelvis : no obvious source of infection other than HCAP Patient having worsening shortness of breath, accessory muscle usage -WBC slightly down today -Noted that WBC count is 17.8 - patient continues to have tachycardia with stable blood pressures - antibiotics discontinued - renal function is within normal limits. - We will reduce dose of patient steroids - Patient refusing BiPAP and bronchoscopy - Spoke with patient legal guardian yesterday, he states he will begin today or tomorrow to discuss CODE STATUS with the patient Qualifiers: Sepsis type: sepsis due to unspecified organism Qualified Code(s): A41.9 - Sepsis, unspecified organism (2) Healthcare associated bacterial pneumonia Current Visit: Yes Status: Acute Assessment and plan: Patient lives at the [place]. CXR showed infiltrates in the right mid and right lower lobe consistent with pneumonia. We will discontinue all antibiotics duoneb treatments QID albuterol nebulizer Q2h PRN Decrease dose of prednisone today titrate O2 to maintain saturation > 92% blood cx showing no growth to date -We will continue present treatment -Plan as above (3) Anemia Current Visit: Yes Status: Acute Assessment and plan: Hgb 07/01/16 8.6 07/02/16 8.2, 07/03/16 9.0. 07/04/16 9.6 07/06/16 10.4 07/07/16 9.1 07/08/16 9.6 patient denies any melena or hemoptysis iron studies: Iron 22, %sat 10, transferrin 154. Iron deficiency anemia. Continue Ferrous sulfate 325 mg BID stool occult sent to lab: pending may require transfusion if hemoglobin is less than 7 -Hemoglobin is stable -Patient does not need transfusion at this point. -We will continue monitor Qualifiers: Anemia type: unspecified type Qualified Code(s): D64.9 - Anemia, unspecified (4) Elevated troponin Current Visit: Yes Status: Acute Assessment and plan: Troponin .04, .02, .02 no chest pain at this time or prior to arrival. most likely secondary to COPD and pneumonia (5) DVT prophylaxis Current Visit: Yes Status: Acute Assessment and plan: encourage ambulation antiembolic stockings heparin 5,000us SQ BID Medical decision making: Patient is at risk of worsening infection as we do not know exact nature of the underlying microbiology. Patient refused for bronchoscopy. - Subjective Interval history: Patient reports doing all right today. He does appear to continue to use some exceptionally muscles of respiration. He reports he has continued cough, but is nonproductive at this point. He denies chest pain, denies fever/chills, denies lightheadedness. 07/08/16 Patient reports increased shortness of breath, he denies cough, denies fever, denies chest pain, denies lightheadedness. We had a discussion about his CODE STATUS morning, he states that she would like to pursue less invasive modalities of treatment at the moment and that he is leaning towards more comfort measures, but was still like to continue antibiotics and is interested in BiPAP as needed for his shortness of breath. - Constitutional Vitals: Temp Pulse Resp BP Pulse Ox 97.6 F 95 16 124/87 96 07/08/16 04:53 07/08/16 04:53 07/08/16 04:53 07/08/16 04:53 07/08/16 04:53 General appearance: Present: mild distress, A&O X 3 Exam: General: Cooperative, pleasant, mild distress, alert and oriented 3, answers questions appropriately Head: Normocephalic, atraumatic Eye: Conjunctiva pink, sclera anicteric, EOMI, PERRL Neck: Supple, trachea midline Respiratory: Accessory muscle usaslight wheezes heard diffusely, bibasilar Rales auscultated right greater than left CardRegular rhythm, tachycardia and S2 present, no murmurs/rubs/gallops/clicks appreciated GI/abdominal: Nondistended, nontender, soft, normal bowel sounds, no peritoneal signs Extremities: No calf tenderness, noncyanotic, no pedal edema appreciated, warm, lower extremity pulses palpable and symmetrical Neurological: Alert and oriented 3, no facial droop, no focal deficits Skin: Dry, intact, normal color Internal Medicine: Result - Labs CBC & Chem 7: 07/08/16 06:20 07/08/16 06:20 Labs: Short CBC 07/08/16 Range/Units 06:20 WBC 17.8 H (4.3-11.1) K/mcL Hgb 9.6 L (12.9-16.9) g/dL Hct 30.8 L (37.5-50.1) % Plt Count 261 (140-400) K/mcL Neutrophils # 15.7 H (1.6-8.9) K/mcL BMP 07/08/16 06:20 Sodium 146 H Potassium 4.0 Chloride 101 Carbon Dioxide 39 H BUN 27 H Creatinine 0.79 Glucose 132 H Calcium 8.2 L - ABG Interpretation ABG results: ABG ABG pH 7.46 pH Units (7.32-7.45) H 07/07/16 12:10 ABG pCO2 69 mmHg (35-45) H 07/07/16 12:10 ABG pO2 53 mmHg (85-104) L 07/07/16 12:10 ABG O2 Saturation 89 % (95-98) L 07/07/16 12:10 PT/INR, D-dimer PT 14.7 Seconds (9.4-12.1) H 06/28/16 21:37 - VTE Documentation of Mechanical Device: Graduated compression elastic hosiery Consult Discharge Plan - Plan Instructions: Acute Respiratory Distress Syndrome (DC), Urinary Tract Infection in Men (DC), Pneumonia (DC) [facility]errals: [facility] [Primary Care Provider[facility] - 07/22/16 12:30 pm <Balta Garcia P - Last Filed: 07/08/16 18:39> Date of Encounter: 07/08/16 - Assessment and plan (1) Sepsis Current Visit: Yes Status: Acute Qualifiers: Sepsis type: sepsis due to unspecified organism Qualified Code(s): A41.9 - Sepsis, unspecified organism (2) Healthcare associated bacterial pneumonia Current Visit: Yes Status: Acute (3) Anemia Current Visit: Yes Status: Acute Qualifiers: Anemia type: unspecified type Qualified Code(s): D64.9 - Anemia, unspecified (4) Elevated troponin Current Visit: Yes Status: Acute (5) DVT prophylaxis Current Visit: Yes Status: Acute - Constitutional Vitals: Temp Pulse Resp BP Pulse Ox 97.8 F 103 18 132/82 97 07/08/16 15:53 07/08/16 15:53 07/08/16 15:53 07/08/16 15:53 07/08/16 15:53 Internal Medicine: Result - Labs CBC & Chem 7: 07/08/16 06:20 07/08/16 06:20 Labs: Short CBC 07/08/16 Range/Units 06:20 WBC 17.8 H (4.3-11.1) K/mcL Hgb 9.6 L (12.9-16.9) g/dL Hct 30.8 L (37.5-50.1) % Plt Count 261 (140-400) K/mcL Neutrophils # 15.7 H (1.6-8.9) K/mcL BMP 07/08/16 06:20 Sodium 146 H Potassium 4.0 Chloride 101 Carbon Dioxide 39 H BUN 27 H Creatinine 0.79 Glucose 132 H Calcium 8.2 L - ABG Interpretation ABG results: ABG ABG pH 7.46 pH Units (7.32-7.45) H 07/07/16 12:10 ABG pCO2 69 mmHg (35-45) H 07/07/16 12:10 ABG pO2 53 mmHg (85-104) L 07/07/16 12:10 ABG O2 Saturation 89 % (95-98) L 07/07/16 12:10 PT/INR, D-dimer PT 14.7 Seconds (9.4-12.1) H 06/28/16 21:37 - Impressions Impressions Chest CTA 07/08/16 15:40 IMPRESSION: 1. No pulmonary embolus. Evaluation of the right segmental and subsegmental branches is limited due to motion. 2. Improved opacities in the right upper lobe and right base. Persistent consolidative, ground-glass, and reticular opacities are seen. Findings are compatible with improving pneumonia superimposed on chronic lung changes. 3. Resolved right pleural effusion. 4. Re-demonstration of fatty hypertrophy of the interatrial septum. 5. Severe emphysema. D/ / 07/08/2016 17:47:04 Shonna Escamilla MD / clarissa Interpreting Provider: Shonna Escamilla MD - Attending Attestation I examined this patient and my medical decision-making was reviewed with the CARE SPECIALIST/PA/Advanced Practice Nurse/Resident Physician. I agree with the documented findings, disposition and treatment plan as described except to the extent set forth below.
[2016-07-08] MEDS ORDERED: Sennosides/Docusate Sodium TABLET PO PRN (14:40)
[2016-07-08] MEDS: MethylPREDNISolone 40 MG/ML VIAL IVP SCH (17:45)
[2016-07-09] MEDS: MethylPREDNISolone 40 MG/ML VIAL IVP SCH ×3 (01:03→17:44)
[2016-07-09] MEDS: 0.9 % Sodium Chloride 1,000 ML IVC SCH ×2 (02:39→17:45)
[2016-07-09] MEDS: Ipratropium/Albuterol Neb 3 ML IH SCH ×4 (04:00→22:38)
[2016-07-09] MEDS: *HR* Heparin 5,000 UNIT/ML VIAL SQ SCH ×2 (05:50→17:44)
[2016-07-09 06:29] LABS: BUN/Creatinine Ratio 36 (6-26); Blood Urea Nitrogen 27 mg/dL (8-26); Calcium 8.4 mg/dL (8.6-10.8); Carbon Dioxide 36 mEq/L (19-29); Chloride 102 mEq/L (98-109); Glucose 140 mg/dL (70-99); Osmolality,Calculated 305 (280-300); Potassium 4.3 mEq/L (3.5-4.5); Sodium 144 mEq/L (136-145); eGFR For African Americans > 60 (> 60); eGFR For Non-African Americans > 60 (> 60)
[2016-07-09 07:02] LABS: Basophils # 0.1 K/mcL (0.0-0.2); Basophils % 0.4 %; Hematocrit 32.4 % (37.5-50.1); Immature Granulocytes % 4.6 % (0-4); Lymphocytes # 0.9 K/mcL (0.6-4.6); Lymphocytes % 4.5 %; Mean Corpuscular HGB Conc 30.9 g/dL (31.6-35.5); Mean Corpuscular Hemoglobin 27.3 pg (28.0-33.3); Mean Corpuscular Volume 88.5 fL (83.0-100.0); Monocytes # 0.6 K/mcL (0.0-1.3); Monocytes % 3.3 %; Neutrophils # 16.8 K/mcL (1.6-8.9); Platelet Count 250 K/mcL (140-400); Red Blood Count 3.66 M/mcL (4.19-5.50); Red Cell Distribution Width 17.4 % (11.5-14.5); Segmented Neutrophils % 87.2 %
--- NOTE | 2016-07-09 07:15 | Venous Imaging Report ---
UE Venous Duplex Patient Name:Lacho Leonard Order Number:[id number] Procedure Date:07/08/2016 Date:1950Age:66 yrs Gender:Male Location:[facility] Room #: 2NE24 Loss Prevention Research Engineer:Kassi Romero RVT Referring MD:Rajendra Breaux DO wine steward:[facility] Reading MD:Bin Sesay MD Primary Indications:new swelling, erthema Secondary Indications: Risk Factors Yes/No Hx of DVT No Hx of Chemotherapy No Trauma to Veins No Impressions: Normal left upper extremity deep and superficial venous exam. Normal contralateral subclavian vein. Findings Venous Duplex Results: Right: Venous imaging of the upper extremity reveals full patency and normal vessel compressibility of the right subclavian. Doppler signals in the evaluated veins were normal. Left: Venous imaging of the upper extremity reveals full patency and normal vessel compressibility of the left jugular, left subclavian, left axillary, left brachial, left cephalic, left basilic, left radial and left ulnar. Doppler signals in the evaluated veins were normal. Prior Study: No prior study available for comparison. Upper Extremity Venous Duplex Side Vein Compress Spontaneous Flow Augment Left Jugular Normal Yes Phasic Yes Left Subclavian Normal Yes Phasic Yes Left Axillary Normal Yes Phasic Yes Left Brachial Normal Yes Phasic Yes Left Cephalic Normal Yes Phasic Yes Left Basilic Normal Yes Phasic Yes Left Radial Normal Yes Phasic Yes Left Ulnar Normal Yes Phasic Yes Right Subclavian Normal Yes Phasic Yes Updated by Bin Sesay MD on 07/09/2016 7:10:34 AM electronically signed on 07/09/2016 7:11:48 AM with status of Final
[2016-07-09] MEDS: Cholecalciferol (D-3) 1,000 UNIT TABLET PO SCH (09:03)
[2016-07-09] MEDS: lamoTRIgine 100 MG TABLET PO SCH (09:03)
[2016-07-09] MEDS: cloZAPine 100 MG TABLET PO SCH ×2 (09:03→21:10)
[2016-07-09] MEDS: Loratadine 10 MG TABLET PO SCH (09:04)
[2016-07-09] MEDS: Famotidine 20 MG TABLET PO SCH ×2 (09:04→21:10)
[2016-07-09] MEDS: Multivit/Ca/Min/Fe/FA 1 TAB TABLET PO SCH (09:04)
--- NOTE | 2016-07-09 09:23 | Internal Med Progress Note ---
<Dru Amezquita - Last Filed: 07/09/16 09:18> Date of Encounter: 07/09/16 Time of Encounter: 09:20 - Assessment and plan (1) Sepsis Current Visit: Yes Status: Acute Assessment and plan: 2/2 HCAP Improving. Res[facility] of the [facility] 06/29/16 WBC 24.5, Resp 30, HR 97, BP 106/63 06/30/16 WBC 9.4, resp 18, HR 100, BP 118/71 07/01/16 WBC 16.9 ( bump likely 2/2 steroids), resp 17, HR 105, BP 173/93 07/02/16 WBC 14.3 Resp 18, HR 99, BP 145/80 07/03/16 WBC 15.6 07/04/16 WBC 17.5 07/06/16 WBC 18.1 07/07/16 WBC 17.3 07/08/16 WBC 17.8 07/09/16 WBC 19.2 Leukocytosis likely result of steroid usage Blood cultures finalize and show no growth Sputum culture showed Pau albicans, likely contaminant monitor vitals and labs AntibioticsDiscontinued 07/08/16 - CTA performed yesterday evening shows no pulmonary embolism, Chest CTA 07/08/16 15:40 IMPRESSION: 1. No pulmonary embolus. Evaluation of the right segmental and subsegmental branches is limited due to motion. 2. Improved opacities in the right upper lobe and right base. Persistent consolidative, ground-glass, and reticular opacities are seen. Findings are compatible with improving pneumonia superimposed on chronic lung changes. 3. Resolved right pleural effusion. 4. Re-demonstration of fatty hypertrophy of the interatrial septum. 5. Severe emphysema. - WBC slightly up today - Noted that WBC count is 19.2 - patient continues to have tachycardia with stable blood pressures - antibiotics discontinued - renal function is within normal limits. - Continue current dose patient steroids - Patient refusing BiPAP and bronchoscopy - Spoke with patient legal guardian , he states he will be in today to discuss CODE STATUS with the patient Qualifiers: Sepsis type: sepsis due to unspecified organism Qualified Code(s): A41.9 - Sepsis, unspecified organism (2) Healthcare associated bacterial pneumonia Current Visit: Yes Status: Acute Assessment and plan: [place] the [place]. CXR showed infiltrates in the right mid and right lower lobe consistent with pneumonia. Blood cultures finalized with no growth, sputum culture shows Pau albicans likely contaminant Antibiotics stopped 07/08/16 duoneb treatments QID albuterol nebulizer Q2h PRN Continue current dose of steroids titrate O2 to maintain saturation > 92% -We will continue present treatment -Plan as above (3) Anemia Current Visit: Yes Status: Acute Assessment and plan: Hgb 07/01/16 8.6 07/02/16 8.2, 07/03/16 9.0. 07/04/16 9.6 07/06/16 10.4 07/07/16 9.1 07/08/16 9.6 07/09/1709.0 patient denies any melena or hemoptysis iron studies: Iron 22, %sat 10, transferrin 154. Iron deficiency anemia. Continue Ferrous sulfate 325 mg BID stool occult sent to lab: pending may require transfusion if hemoglobin is less than 7 -Hemoglobin is stable -Patient does not need transfusion at this point. -We will continue monitor Qualifiers: Anemia type: unspecified type Qualified Code(s): D64.9 - Anemia, unspecified (4) Elevated troponin Current Visit: Yes Status: Acute Assessment and plan: Troponin .04, .02, .02 no chest pain at this time or prior to arrival. most likely secondary to COPD and pneumonia (5) DVT prophylaxis Current Visit: Yes Status: Acute Assessment and plan: encourage ambulation antiembolic stockings heparin 5,000us SQ BID Medical decision making: Patient is at risk of worsening infection as we do not know exact nature of the underlying microbiology. Patient refused for bronchoscopy. - Subjective Interval history: 07/09/16 Patient reports feeling much the same today. He states he is having continued difficulty breathing, but is no worse than what was previously he also admits to continued cough. He denies having subjective fever/chills, chest pain, nausea/vomiting, or abdominal pain. 07/08/16 Patient reports doing all right today. He does appear to continue to use some exceptionally muscles of respiration. He reports he has continued cough, but is nonproductive at this point. He denies chest pain, denies fever/chills, denies lightheadedness. 07/07/16 Patient reports increased shortness of breath, he denies cough, denies fever, denies chest pain, denies lightheadedness. We had a discussion about his CODE STATUS morning, he states that she would like to pursue less invasive modalities of treatment at the moment and that he is leaning towards more comfort measures, but was still like to continue antibiotics and is interested in BiPAP as needed for his shortness of breath. - Constitutional Vitals: Temp Pulse Resp BP Pulse Ox 97.4 F L 104 14 137/79 96 07/09/16 07:33 07/09/16 07:33 07/09/16 07:33 07/09/16 02:15 07/09/16 04:00 General appearance: Present: mild distress, A&O X 3 Exam: General: Cooperative, pleasant, no acute distress, alert and oriented 3, answers questions appropriately Head: Normocephalic, atraumatic Eye: Conjunctiva pink, sclera anicteric, EOMI, PERRL, pupils constricted Neck: Supple, trachea midline Respiratory: Some accessory muscle usage, slight wheezes heard in auscultation of right lung, bibasilar Rales auscultated right greater than left Cardiovascular: Regular rhythm, tachycardic, S1 and S2 present, no murmurs/rubs/ gallops/clicks appreciated GI/abdominal: Nondistended, nontender, soft, normal bowel sounds, no peritoneal signs Extremities: No calf tenderness, noncyanotic, no pedal edema appreciated, warm, lower extremity pulses palpable and symmetrical Neurological: Alert and oriented 3, no facial droop, no focal deficits Skin: Dry, intact, normal color Internal Medicine: Result - Labs CBC & Chem 7: 07/09/16 06:00 07/09/16 06:00 Labs: Short CBC 07/09/16 Range/Units 06:00 WBC 19.2 H (4.3-11.1) K/mcL Hgb 10.0 L (12.9-16.9) g/dL Hct 32.4 L (37.5-50.1) % Plt Count 250 (140-400) K/mcL Neutrophils # 16.8 H (1.6-8.9) K/mcL BMP 07/09/16 06:00 Sodium 144 Potassium 4.3 Chloride 102 Carbon Dioxide 36 H BUN 27 H Creatinine 0.74 Glucose 140 H Calcium 8.4 L - ABG Interpretation ABG results: ABG ABG pH 7.46 pH Units (7.32-7.45) H 07/07/16 12:10 ABG pCO2 69 mmHg (35-45) H 07/07/16 12:10 ABG pO2 53 mmHg (85-104) L 07/07/16 12:10 ABG O2 Saturation 89 % (95-98) L 07/07/16 12:10 PT/INR, D-dimer PT 14.7 Seconds (9.4-12.1) H 06/28/16 21:37 - Impressions Impressions Chest CTA 07/08/16 15:40 IMPRESSION: 1. No pulmonary embolus. Evaluation of the right segmental and subsegmental branches is limited due to motion. 2. Improved opacities in the right upper lobe and right base. Persistent consolidative, ground-glass, and reticular opacities are seen. Findings are compatible with improving pneumonia superimposed on chronic lung changes. 3. Resolved right pleural effusion. 4. Re-demonstration of fatty hypertrophy of the interatrial septum. 5. Severe emphysema. D/ / 07/08/2016 17:47:04 Shonna Escamilla MD / clarissa Interpreting Provider: Shonna Escamilla MD - VTE Documentation of Mechanical Device: Graduated compression elastic hosiery Consult Discharge Plan - Plan Instructions: Acute Respiratory Distress Syndrome (DC), Urinary Tract Infection in Men (DC), Pneumonia (DC) [facility]errals: [facility] [Primary Care Provider[facility] - 07/22/16 12:30 pm <Balta Garcia P - Last Filed: 07/09/16 18:21> Date of Encounter: 07/09/16 - Assessment and plan (1) Sepsis Current Visit: Yes Status: Acute Qualifiers: Sepsis type: sepsis due to unspecified organism Qualified Code(s): A41.9 - Sepsis, unspecified organism (2) Healthcare associated bacterial pneumonia Current Visit: Yes Status: Acute (3) Anemia Current Visit: Yes Status: Acute Qualifiers: Anemia type: unspecified type Qualified Code(s): D64.9 - Anemia, unspecified (4) Elevated troponin Current Visit: Yes Status: Acute (5) DVT prophylaxis Current Visit: Yes Status: Acute - Constitutional Vitals: Temp Pulse Resp BP Pulse Ox 98.9 F 107 18 135/84 97 07/09/16 15:05 07/09/16 15:05 07/09/16 16:30 07/09/16 15:05 07/09/16 16:30 Internal Medicine: Result - Labs CBC & Chem 7: 07/09/16 06:00 07/09/16 06:00 Labs: Short CBC 07/09/16 Range/Units 06:00 WBC 19.2 H (4.3-11.1) K/mcL Hgb 10.0 L (12.9-16.9) g/dL Hct 32.4 L (37.5-50.1) % Plt Count 250 (140-400) K/mcL Neutrophils # 16.8 H (1.6-8.9) K/mcL BMP 07/09/16 06:00 Sodium 144 Potassium 4.3 Chloride 102 Carbon Dioxide 36 H BUN 27 H Creatinine 0.74 Glucose 140 H Calcium 8.4 L - ABG Interpretation ABG results: ABG ABG pH 7.46 pH Units (7.32-7.45) H 07/07/16 12:10 ABG pCO2 69 mmHg (35-45) H 07/07/16 12:10 ABG pO2 53 mmHg (85-104) L 07/07/16 12:10 ABG O2 Saturation 89 % (95-98) L 07/07/16 12:10 PT/INR, D-dimer PT 14.7 Seconds (9.4-12.1) H 06/28/16 21:37 - Impressions Impressions Chest CTA 07/08/16 15:40 IMPRESSION: 1. No pulmonary embolus. Evaluation of the right segmental and subsegmental branches is limited due to motion. 2. Improved opacities in the right upper lobe and right base. Persistent consolidative, ground-glass, and reticular opacities are seen. Findings are compatible with improving pneumonia superimposed on chronic lung changes. 3. Resolved right pleural effusion. 4. Re-demonstration of fatty hypertrophy of the interatrial septum. 5. Severe emphysema. D/ / 07/08/2016 17:47:04 Shonna Escamilla MD / clarissa Interpreting Provider: Shonna Escamilla MD - Attending Attestation I examined this patient and my medical decision-making was reviewed with the REFRIGERATION OPERATOR/PA/Advanced Practice Nurse/Resident Physician. I agree with the documented findings, disposition and treatment plan as described except to the extent set forth below.
[2016-07-09] MEDS: Budesonide/Formoterol 160/4.5 MDI IH SCH ×2 (11:12→22:38)
[2016-07-10] MEDS: MethylPREDNISolone 40 MG/ML VIAL IVP SCH ×3 (00:06→17:05)
[2016-07-10] MEDS: Ipratropium/Albuterol Neb 3 ML IH SCH ×4 (03:53→22:20)
[2016-07-10] MEDS: *HR* Heparin 5,000 UNIT/ML VIAL SQ SCH ×2 (06:18→17:06)
[2016-07-10] MEDS: Cholecalciferol (D-3) 1,000 UNIT TABLET PO SCH (08:24)
[2016-07-10] MEDS: cloZAPine 100 MG TABLET PO SCH ×2 (08:24→22:06)
[2016-07-10] MEDS: lamoTRIgine 100 MG TABLET PO SCH (08:24)
[2016-07-10] MEDS: Multivit/Ca/Min/Fe/FA 1 TAB TABLET PO SCH (08:25)
[2016-07-10] MEDS: Famotidine 20 MG TABLET PO SCH ×2 (08:25→22:06)
[2016-07-10] MEDS: Loratadine 10 MG TABLET PO SCH (08:25)
[2016-07-10] MEDS: Budesonide/Formoterol 160/4.5 MDI IH SCH ×2 (10:58→22:20)
--- NOTE | 2016-07-10 17:17 | Internal Med Progress Note ---
Date of Encounter: 07/11/16 Time of Encounter: 17:16 - Assessment and plan (1) Sepsis Current Visit: Yes Status: Acute Assessment and plan: 2/2 HCAP Improving. [facility]16 WBC 24.5, Resp 30, HR 97, BP 106/63 06/30/16 WBC 9.4, resp 18, HR 100, BP 118/71 07/01/16 WBC 16.9 ( bump likely 2/2 steroids), resp 17, HR 105, BP 173/93 07/02/16 WBC 14.3 Resp 18, HR 99, BP 145/80 07/03/16 WBC 15.6 07/04/16 WBC 17.5 07/06/16 WBC 18.1 07/07/16 WBC 17.3 07/08/16 WBC 17.8 07/09/16 WBC 19.2 Leukocytosis likely result of steroid usage Blood cultures finalize and show no growth Sputum culture showed Pau albicans, likely contaminant monitor vitals and labs AntibioticsDiscontinued 07/08/16 - CTA performed yesterday evening shows no pulmonary embolism, Chest CTA 07/08/16 15:40 IMPRESSION: 1. No pulmonary embolus. Evaluation of the right segmental and subsegmental branches is limited due to motion. 2. Improved opacities in the right upper lobe and right base. Persistent consolidative, ground-glass, and reticular opacities are seen. Findings are compatible with improving pneumonia superimposed on chronic lung changes. 3. Resolved right pleural effusion. 4. Re-demonstration of fatty hypertrophy of the interatrial septum. 5. Severe emphysema. - WBC slightly up today - Noted that WBC count is 19.2 - patient continues to have tachycardia with stable blood pressures - antibiotics discontinued - renal function is within normal limits. - Continue current dose patient steroids - Patient refusing BiPAP and bronchoscopy - Spoke with patient legal guardian , he states he will be in today to discuss CODE STATUS with the patient 07/10/2016 spoke with legal guardian Mr Kennedy he will be here tomorrow Qualifiers: Sepsis type: sepsis due to unspecified organism Qualified Code(s): A41.9 - Sepsis, unspecified organism (2) Healthcare associated bacterial pneumonia Current Visit: Yes Status: Acute Assessment and plan: Patient lives at the [facility]. CXR showed infiltrates in the right mid and right lower lobe consistent with pneumonia. Blood cultures finalized with no growth, sputum culture shows Pau albicans likely contaminant Antibiotics stopped 07/08/16 duoneb treatments QID albuterol nebulizer Q2h PRN Continue current dose of steroids titrate O2 to maintain saturation > 92% -We will continue present treatment -Plan as above (3) Anemia Current Visit: Yes Status: Acute Assessment and plan: Hgb 07/01/16 8.6 07/02/16 8.2, 07/03/16 9.0. 07/04/16 9.6 07/06/16 10.4 07/07/16 9.1 07/08/16 9.6 07/09/1709.0 patient denies any melena or hemoptysis iron studies: Iron 22, %sat 10, transferrin 154. Iron deficiency anemia. Continue Ferrous sulfate 325 mg BID stool occult sent to lab: pending may require transfusion if hemoglobin is less than 7 -Hemoglobin is stable -Patient does not need transfusion at this point. -We will continue monitor Qualifiers: Anemia type: unspecified type Qualified Code(s): D64.9 - Anemia, unspecified (4) Elevated troponin Current Visit: Yes Status: Acute Assessment and plan: Troponin .04, .02, .02 no chest pain at this time or prior to arrival. most likely secondary to COPD and pneumonia (5) DVT prophylaxis Current Visit: Yes Status: Acute Assessment and plan: encourage ambulation antiembolic stockings heparin 5,000us SQ BID Medical decision making: Patient is at risk of worsening infection as we do not know exact nature of the underlying microbiology. Patient refused for bronchoscopy. - Subjective Interval history: seen and examined. still occasional cough and SOB no new complaints. 07/04/2016. Patient seen and examined. Chart reviewed. 07/10/2016 seen and examined. still occasional cough and SOB no new complaints. - Constitutional Vitals: Temp Pulse Resp BP Pulse Ox 97.8 F 108 20 140/94 95 07/10/16 08:14 07/10/16 08:14 07/10/16 15:25 07/10/16 08:14 07/10/16 15:25 General appearance: Present: mild distress, A&O X 3 - Head Head exam: Present: atraumatic, normocephalic - Eye Eye exam: Present: PERRL, conjuntiva pink, sclera anicteric Pupils: Present: PERRL - Neck Neck exam general surgery: Present: supple, trachea midline. Absent: lymphadenopathy - Respiratory Respiratory exam: Present: CTAB. Absent: accessory muscle use, rales, rhonchi, wheezes - Cardiovascular Cardiovascular exam: Present: RRR, +S1, +S2. Absent: diastolic murmur, gallop, rubs, systolic murmur - GI/Abdominal GI/Abdominal exam: Present: normal bowel sounds, soft, no peritoneal signs. Absent: distended, tenderness - Extremities Exam Extremities exam: Present: warm, radial pulses palpable and symetrical. Absent : calf tenderness, cyanotic, pedal edema - Neurological Exam Neurological exam: Present: CN II-XII intact, oriented X3, no focal deficits. Absent: pronater drift, facial droop, speech deficit - Skin Skin exam: Present: dry, intact Internal Medicine: Result - Labs CBC & Chem 7: 07/11/16 09:15 07/11/16 09:15 - ABG Interpretation ABG results: ABG ABG pH 7.46 pH Units (7.32-7.45) H 07/07/16 12:10 ABG pCO2 69 mmHg (35-45) H 07/07/16 12:10 ABG pO2 53 mmHg (85-104) L 07/07/16 12:10 ABG O2 Saturation 89 % (95-98) L 07/07/16 12:10 PT/INR, D-dimer PT 14.7 Seconds (9.4-12.1) H 06/28/16 21:37 - VTE Documentation of Mechanical Device: Graduated compression elastic hosiery Consult Discharge Plan - Plan Instructions: Acute Respiratory Distress Syndrome (DC), Urinary Tract Infection in Men (DC), Pneumonia (DC) [facility]errals: [facility] [Primary Care Provider[facility] - 07/22/16 12:30 pm
[2016-07-11] MEDS: MethylPREDNISolone 40 MG/ML VIAL IVP SCH ×3 (00:26→17:23)
[2016-07-11] MEDS: Ipratropium/Albuterol Neb 3 ML IH SCH ×4 (04:42→21:19)
[2016-07-11] MEDS: *HR* Heparin 5,000 UNIT/ML VIAL SQ SCH ×2 (06:46→17:25)
[2016-07-11] MEDS: Loratadine 10 MG TABLET PO SCH (09:35)
[2016-07-11] MEDS: Multivit/Ca/Min/Fe/FA 1 TAB TABLET PO SCH (09:35)
[2016-07-11] MEDS: Cholecalciferol (D-3) 1,000 UNIT TABLET PO SCH (09:35)
[2016-07-11] MEDS: lamoTRIgine 100 MG TABLET PO SCH (09:36)
[2016-07-11] MEDS: Famotidine 20 MG TABLET PO SCH ×2 (09:36→20:40)
[2016-07-11] MEDS: cloZAPine 100 MG TABLET PO SCH ×2 (09:39→20:39)
[2016-07-11 10:07] LABS: Basophils % 0.2 %; Hematocrit 33.2 % (37.5-50.1); Immature Granulocytes % 1.5 % (0-4); Lymphocytes # 2.3 K/mcL (0.6-4.6); Lymphocytes % 18.7 %; Mean Corpuscular HGB Conc 30.1 g/dL (31.6-35.5); Mean Corpuscular Volume 89.5 fL (83.0-100.0); Mean Platelet Volume 11.5 fL (9.4-12.4); Monocytes # 1.2 K/mcL (0.0-1.3); Monocytes % 9.7 %; Neutrophils # 8.7 K/mcL (1.6-8.9); Platelet Count 209 K/mcL (140-400); Red Blood Count 3.71 M/mcL (4.19-5.50); Red Cell Distribution Width 18.4 % (11.5-14.5); Segmented Neutrophils % 69.9 %
[2016-07-11 10:21] LABS: BUN/Creatinine Ratio 28 (6-26); Blood Urea Nitrogen 24 mg/dL (8-26); Calcium 8.4 mg/dL (8.6-10.8); Carbon Dioxide 38 mEq/L (19-29); Chloride 103 mEq/L (98-109); Glucose 140 mg/dL (70-99); Osmolality,Calculated 306 (280-300); Sodium 145 mEq/L (136-145); eGFR For African Americans > 60 (> 60); eGFR For Non-African Americans > 60 (> 60)
[2016-07-11] MEDS: Budesonide/Formoterol 160/4.5 MDI IH SCH ×2 (11:36→21:19)
--- NOTE | 2016-07-11 17:33 | Internal Med Progress Note ---
Date of Encounter: 07/11/16 Time of Encounter: 17:31 - Assessment and plan (1) Sepsis Current Visit: Yes Status: Acute Assessment and plan: 2/2 HCAP Improving. [facility]16 WBC 24.5, Resp 30, HR 97, BP 106/63 06/30/16 WBC 9.4, resp 18, HR 100, BP 118/71 07/01/16 WBC 16.9 ( bump likely 2/2 steroids), resp 17, HR 105, BP 173/93 07/02/16 WBC 14.3 Resp 18, HR 99, BP 145/80 07/03/16 WBC 15.6 07/04/16 WBC 17.5 07/06/16 WBC 18.1 07/07/16 WBC 17.3 07/08/16 WBC 17.8 07/09/16 WBC 19.2 Leukocytosis likely result of steroid usage Blood cultures finalize and show no growth Sputum culture showed Pau albicans, likely contaminant monitor vitals and labs AntibioticsDiscontinued 07/08/16 - CTA performed yesterday evening shows no pulmonary embolism, Chest CTA 07/08/16 15:40 IMPRESSION: 1. No pulmonary embolus. Evaluation of the right segmental and subsegmental branches is limited due to motion. 2. Improved opacities in the right upper lobe and right base. Persistent consolidative, ground-glass, and reticular opacities are seen. Findings are compatible with improving pneumonia superimposed on chronic lung changes. 3. Resolved right pleural effusion. 4. Re-demonstration of fatty hypertrophy of the interatrial septum. 5. Severe emphysema. - WBC slightly up today - Noted that WBC count is 19.2 - patient continues to have tachycardia with stable blood pressures - antibiotics discontinued - renal function is within normal limits. - Continue current dose patient steroids - Patient refusing BiPAP and bronchoscopy - Spoke with patient legal guardian , he states he will be in today to discuss CODE STATUS with the patient 07/10/2016 spoke with legal guardian Mr Kennedy he will be here tomorrow 07/11/2016 Mr Kennedy was at bedside. informed patient at length regarding code status and all options at length in front of him and YESSICA Tariq. patient chose that his code status to be DNRCC code status updated in system Qualifiers: Sepsis type: sepsis due to unspecified organism Qualified Code(s): A41.9 - Sepsis, unspecified organism (2) Healthcare associated bacterial pneumonia Current Visit: Yes Status: Acute Assessment and plan: Patient lives at the [place]. CXR showed infiltrates in the right mid and right lower lobe consistent with pneumonia. Blood cultures finalized with no growth, sputum culture shows Pau albicans likely contaminant Antibiotics stopped 07/08/16 duoneb treatments QID albuterol nebulizer Q2h PRN Continue current dose of steroids titrate O2 to maintain saturation > 92% -We will continue present treatment -Plan as above (3) Anemia Current Visit: Yes Status: Acute Assessment and plan: Hgb 07/01/16 8.6 07/02/16 8.2, 07/03/16 9.0. 07/04/16 9.6 07/06/16 10.4 07/07/16 9.1 07/08/16 9.6 07/09/1709.0 patient denies any melena or hemoptysis iron studies: Iron 22, %sat 10, transferrin 154. Iron deficiency anemia. Continue Ferrous sulfate 325 mg BID stool occult sent to lab: pending may require transfusion if hemoglobin is less than 7 -Hemoglobin is stable -Patient does not need transfusion at this point. -We will continue monitor Qualifiers: Anemia type: unspecified type Qualified Code(s): D64.9 - Anemia, unspecified (4) Elevated troponin Current Visit: Yes Status: Acute Assessment and plan: Troponin .04, .02, .02 no chest pain at this time or prior to arrival. most likely secondary to COPD and pneumonia (5) DVT prophylaxis Current Visit: Yes Status: Acute Assessment and plan: encourage ambulation antiembolic stockings heparin 5,000us SQ BID Medical decision making: Patient is at risk of worsening infection as we do not know exact nature of the underlying microbiology. Patient refused for bronchoscopy. - Subjective Interval history: seen and examined. still occasional cough and SOB no new complaints. 07/04/2016. Patient seen and examined. Chart reviewed. 07/10/2016 seen and examined. still occasional cough and SOB no new complaints. 07/11/2016 seen and examined. Mr Kennedy ( patient's securities attorney and legal guardian) was at bedside Ms Chandni JUAN was with me at bedside too. - Constitutional Vitals: Temp Pulse Resp BP Pulse Ox 97.9 F 108 20 112/57 96 07/11/16 15:36 07/11/16 15:36 07/11/16 15:36 07/11/16 15:36 07/11/16 15:36 General appearance: Present: mild distress, A&O X 3 - Head Head exam: Present: atraumatic, normocephalic - Eye Eye exam: Present: PERRL, conjuntiva pink, sclera anicteric Pupils: Present: PERRL - Neck Neck exam general surgery: Present: supple, trachea midline. Absent: lymphadenopathy - Respiratory Respiratory exam: Present: CTAB. Absent: accessory muscle use, rales, rhonchi, wheezes - Cardiovascular Cardiovascular exam: Present: RRR, +S1, +S2. Absent: diastolic murmur, gallop, rubs, systolic murmur - GI/Abdominal GI/Abdominal exam: Present: normal bowel sounds, soft, no peritoneal signs. Absent: distended, tenderness - Extremities Exam Extremities exam: Present: warm, radial pulses palpable and symetrical. Absent : calf tenderness, cyanotic, pedal edema - Neurological Exam Neurological exam: Present: CN II-XII intact, oriented X3, no focal deficits. Absent: pronater drift, facial droop, speech deficit - Skin Skin exam: Present: dry, intact Internal Medicine: Result - Labs CBC & Chem 7: 07/11/16 09:15 07/11/16 09:15 Labs: Short CBC 07/11/16 Range/Units 09:15 WBC 12.5 H (4.3-11.1) K/mcL Hgb 10.0 L (12.9-16.9) g/dL Hct 33.2 L (37.5-50.1) % Plt Count 209 (140-400) K/mcL Neutrophils # 8.7 (1.6-8.9) K/mcL BMP 07/11/16 09:15 Sodium 145 Potassium 4.0 Chloride 103 Carbon Dioxide 38 H BUN 24 Creatinine 0.87 Glucose 140 H Calcium 8.4 L - ABG Interpretation ABG results: ABG ABG pH 7.46 pH Units (7.32-7.45) H 07/07/16 12:10 ABG pCO2 69 mmHg (35-45) H 07/07/16 12:10 ABG pO2 53 mmHg (85-104) L 07/07/16 12:10 ABG O2 Saturation 89 % (95-98) L 07/07/16 12:10 PT/INR, D-dimer PT 14.7 Seconds (9.4-12.1) H 06/28/16 21:37 - VTE Documentation of Mechanical Device: Graduated compression elastic hosiery Consult Discharge Plan - Plan Instructions: Acute Respiratory Distress Syndrome (DC), Urinary Tract Infection in Men (DC), Pneumonia (DC) [facility]errals: [facility] [Primary Care Provider] - 07/22/16 12:30 pm
[2016-07-12] MEDS: MethylPREDNISolone 40 MG/ML VIAL IVP SCH ×3 (03:20→17:43)
[2016-07-12] MEDS: Ipratropium/Albuterol Neb 3 ML IH SCH ×4 (04:34→22:40)
[2016-07-12] MEDS: *HR* Heparin 5,000 UNIT/ML VIAL SQ SCH ×2 (06:10→17:42)
[2016-07-12 06:27] LABS: Basophils % 0.2 %; Hematocrit 36.2 % (37.5-50.1); Immature Granulocytes % 0.8 % (0-4); Lymphocytes # 2.7 K/mcL (0.6-4.6); Lymphocytes % 20.8 %; Mean Corpuscular HGB Conc 30.4 g/dL (31.6-35.5); Mean Corpuscular Volume 88.9 fL (83.0-100.0); Mean Platelet Volume 11.1 fL (9.4-12.4); Monocytes # 1.5 K/mcL (0.0-1.3); Monocytes % 11.4 %; Neutrophils # 8.7 K/mcL (1.6-8.9); Platelet Count 204 K/mcL (140-400); Red Blood Count 4.07 M/mcL (4.19-5.50); Red Cell Distribution Width 18.5 % (11.5-14.5); Segmented Neutrophils % 66.8 %
[2016-07-12 06:47] LABS: Alanine Aminotransferase 25 Units/L (0-55); Albumin 2.7 g/dL (3.5-5.0); Albumin/Globulin Ratio 0.9 (1.1-2.2); Alkaline Phosphatase 74 Units/L (38-126); Aspartate Amino Transferase 18 Units/L (5-34); BUN/Creatinine Ratio 19 (6-26); Bilirubin,Total 0.4 mg/dL (0.2-1.2); Blood Urea Nitrogen 23 mg/dL (8-26); Calcium 8.8 mg/dL (8.6-10.8); Carbon Dioxide 33 mEq/L (19-29); Chloride 102 mEq/L (98-109); Globulin 2.9 g/dL (2.4-3.5); Glucose 111 mg/dL (70-99); Osmolality,Calculated 302 (280-300); Potassium 4.4 mEq/L (3.5-4.5); Sodium 144 mEq/L (136-145); Total Protein 5.6 g/dL (6.0-8.3); eGFR For African Americans > 60 (> 60); eGFR For Non-African Americans > 60 (> 60)
[2016-07-12] MEDS: 0.9 % Sodium Chloride 1,000 ML IVC SCH ×3 (07:59→20:16)
[2016-07-12] MEDS: Cholecalciferol (D-3) 1,000 UNIT TABLET PO SCH (08:11)
[2016-07-12] MEDS: lamoTRIgine 100 MG TABLET PO SCH (08:11)
[2016-07-12] MEDS: Famotidine 20 MG TABLET PO SCH ×2 (08:12→20:15)
[2016-07-12] MEDS: Loratadine 10 MG TABLET PO SCH (08:12)
[2016-07-12] MEDS: Multivit/Ca/Min/Fe/FA 1 TAB TABLET PO SCH (08:12)
[2016-07-12] MEDS: cloZAPine 100 MG TABLET PO SCH ×2 (08:12→20:15)
[2016-07-12] MEDS: Budesonide/Formoterol 160/4.5 MDI IH SCH ×2 (10:24→22:42)
--- NOTE | 2016-07-12 15:02 | Palliative - Consult Note ---
Date of Encounter: 07/12/16 Time of Encounter: 10:00 - Assessment and Plan (1) Dyspnea Current Visit: Yes Status: Acute Assessment and plan: Continues on IV antibiotics and oxygen support. Will add low dose Roxanol if needed, 2.5mg every 4 hours PRN. Qualifiers: Dyspnea type: unspecified Qualified Code(s): R06.00 - Dyspnea, unspecified (2) Counseling regarding advanced care planning and goals of care Current Visit: Yes Status: Acute Assessment and plan: [facility] Jamal VALENTINE. Patient desires to go back to [facility] , however, not sure they can handle his care at this point. He was only on 2 liters of oxygen there. No ABG's, however, CT chest demonstrates severe emphysema, he is requiring high flow oxygen, and short of breath even at rest. Will investigate possible [facility]/hospice bed at [facility]. [facility] as [facility] as pt [facility]. D/W Dr. Garcia (3) Acute exacerbation of chronic obstructive pulmonary disease (COPD) Current Visit: Yes Status: Acute (4) Acute on chronic respiratory failure with hypoxemia Current Visit: Yes Status: Acute (5) Healthcare associated bacterial pneumonia Current Visit: Yes Status: Acute Palliative-[facility] HPI - Data of Consult Consult date: 07/12/16 Requesting Physician: Balta Garcia MD Primary Care Provider: PCP [facility] - Consult Narrative History of present illness: Mr. Leonard is a 66 year old male with a history of advanced COPD and schizophrenia, resides at [facility], who was admitted for increasing shortness of breath. Currently being treated for pneumonia. Pulmonology saw pt and recommended bronchoscopy, however, pt refused. Patient has legal guardian, Engineer Conductor Bin Kennedy, who came in this weekend to see pt and speak with hospitalist. He was transitioned to [facility]. Patient continues to be short of breath at rest and is on 7 liters high flow oxygen. He states he is very weak and not feeling well. Denies pain or nausea. He is on the blue team at the [facility] and documented 50-100% service connected disability on records they have sent. CC: Balta Garcia MD Past Med Surg Social Fam HX - Past Medical History Medical history: COPD, hyperlipidemia, other Psychiatric history: schizophrenia - Past Surgical History Surgical History: no surgical history - Social History Smoking Status: Former smoker Smokeless Tobacco Status: No Alcohol use: none Drug use: none - Family History Father Living Status: Age at : 77 Cause of : SC Hx Family Cardiac Disorders: Yes (SC,) Hx Family Respiratory Disorders: Yes (Emphysema) Hx Family Cancer: No Hx Family GI Disorders: No Hx Family Genitourinary Disorders: No Hx Family Endocrine Disorder: No Hx Family Musculoskeletal Disorders: No Hx Family Neuromuscular Disorders: No Hx Family Neurologic Disorders: No Hx Family HEENT Disorders: No Hx Family Autoimmune Disorders: No Hx Family Reproductive Disorders: No Hx Family Psychosocial Disorders: Yes (Depression) Hx Family Medical Disorders: No Medications and Allergies Albuterol Sulfate [Albuterol Inhaler] 2 puff IH Q6HR PRN 06/29/16 [History] Atorvastatin Calcium [Lipitor] 20 mg PO DAILY 06/29/16 [History] Bisacodyl [Dulcolax] 10 mg PO 3XW MDD mon,,fri 06/29/16 [History] Budesonide/Formoterol 160/4.5 [Symbicort 160/4.5] 2 puff IH BIDR 06/29/16 [ History] Cholecalciferol (D-3) [Vitamin D] 2,000 unit PO DAILY 06/29/16 [History] CloZAPine [Clozaril] 300 mg PO HS 06/29/16 [History] CloZAPine [Clozaril] 400 mg PO QAM 06/29/16 [History] Docusate Sodium 100 mg PO BID 06/29/16 [History] GuaiFENesin/Dextromethorphan [Eql Tussin Dm Max Liquid] 10 ml PO Q4H PRN [History] Guaifenesin [Guaifenesin] 200 mg PO QID 06/29/16 [History] Lamotrigine [Lamictal] 75 mg PO BID 06/29/16 [History] Loratadine [Allergy Relief] 10 mg PO DAILY 06/29/16 [History] Multivitamin [One Daily Essential] 1 tab PO QAM 06/29/16 [History] Oxazepam [Serax] 10 mg PO BID 06/29/16 [History] Potassium Chloride [Klor-Con 10] 30 meq PO DAILY 06/29/16 [History] Sertraline [Zoloft] 150 mg PO QAM 06/29/16 [History] Tiotropium [Spiriva] 18 mcg IH DAILY 06/29/16 [History] Allergies chlorpromazine Adverse Reaction (Verified 06/28/16 20:23) See Comments Ether Adverse Reaction (Verified 06/28/16 20:23) See Comments Review of systems: c/o shortness of breath, even at rest, generalized weakness Palliative Care-Exam - Constitutional Vitals: Temp Pulse Resp BP Pulse Ox 98.4 F 94 20 125/61 100 07/12/16 07:00 07/12/16 07:00 07/12/16 10:25 07/12/16 07:00 07/12/16 10:25 General appearance: Present: mild distress - Head Head Exam: Present: normal inspection, normocephalic - Eye Eye exam: Present: normal appearance, PERRL - Expanded Respiratory Exam Location: decreased breath sounds: Left, Right, Lower - Cardiovascular Cardiovascular exam: Present: +S1, +S2 - GI/Abdominal Exam GI/Abdominal exam: Present: normal bowel sounds, soft - Additional comments: Voids per urinal - Extremities Exam Extremities exam: Present: normal capillary refill, normal inspection - Neurological Exam Neurological exam: Present: alert, strengths equal and symetr throughout Additional comments: Oriented to name and place, needs re-oriented to time and situation - Psychiatric Psychiatric exam: Present: anxious, flat affect - Skin Skin exam: Present: dry, pallor Internal Medicine - CN: Reslt - Labs CBC & Chem 7: 07/12/16 06:08 07/12/16 06:08 Labs: Short CBC 07/12/16 Range/Units 06:08 WBC 13.0 H (4.3-11.1) K/mcL Hgb 11.0 L (12.9-16.9) g/dL Hct 36.2 L (37.5-50.1) % Plt Count 204 (140-400) K/mcL Neutrophils # 8.7 (1.6-8.9) K/mcL BMP 07/12/16 06:08 Sodium 144 Potassium 4.4 Chloride 102 Carbon Dioxide 33 H BUN 23 Creatinine 1.20 Glucose 111 H Calcium 8.8 Liver Function 07/12/16 Range/Units 06:08 Total Bilirubin 0.4 (0.2-1.2) mg/dL AST 18 (5-34) Units/L ALT 25 (0-55) Units/L Alkaline Phosphatase 74 (38-126) Units/L Albumin 2.7 L (3.5-5.0) g/dL - ABG Interpretation ABG results: ABG ABG pH 7.46 pH Units (7.32-7.45) H 07/07/16 12:10 ABG pCO2 69 mmHg (35-45) H 07/07/16 12:10 ABG pO2 53 mmHg (85-104) L 07/07/16 12:10 ABG O2 Saturation 89 % (95-98) L 07/07/16 12:10 PT/INR, D-dimer PT 14.7 Seconds (9.4-12.1) H 06/28/16 21:37 Consult Discharge Plan - Plan Instructions: Acute Respiratory Distress Syndrome (DC), Urinary Tract Infection in Men (DC), Pneumonia (DC) [facility]errals: [facility]Primary Care Provider] - 07/22/16 12:30 pm Palliative Quality Palliative Quality: Screen for Code Status: Yes, Screen for Goals of Care: Yes, Screen for Pain: Yes, If Pain Regimen Started, Initiate Bowel Regimen: NA, Screen for Nausea/Vomitting: Yes Code Status: 07/06/16 17:07 CODE [Resuscitation Status: Active] [RES] Routine Comment: Resuscitation Status: DNR-Comfort Care 07/07/16 15:28 CODE [Resuscitation Status: Active] [RES] Routine Comment: Resuscitation Status: Full Code 07/11/16 17:30 CODE [Resuscitation Status: Active] [RES] Routine Comment: Resuscitation Status: DNR-Comfort Care
--- NOTE | 2016-07-12 16:51 | Internal Med Progress Note ---
<Chang Laughlin - Last Filed: 07/12/16 17:31> Date of Encounter: 07/12/16 Time of Encounter: 08:15 - Assessment and plan (1) Healthcare associated bacterial pneumonia Status: Acute Assessment and plan: Patient is a resident of the [facility] with CXR demonstrating right middle and lower lobe pneumonia upon admission. Patients blood cultures were negative for growth. Antibiotics discontinued on 07/08/2016. Patients leukocytosis is trending down from admission Plan: - Continue current breathing treatments. - Continue to hold antibiotics at this time. (2) Acute exacerbation of chronic obstructive pulmonary disease (COPD) Status: Acute Assessment and plan: Patient has demonstrates Acute respiratory failure with severe emphysema. Elevated WBC which are improving but still elevated. Patient requires high flow oxygen at 7 liters. Plan: - Continue high flow oxygen to maintain oxygen saturations 88-93% - Continue scheduled breathing treatments with DuoNebs and respiratory inhalers. (3) Acute on chronic respiratory failure with hypoxemia Status: Acute Assessment and plan: Patient demonstrated acute on chronic respiratory failure in the setting of HCAP and severe emphysema. Patient has required high flow oxygen to maintain oxygen saturations greater than 90% and demonstrates shortness of breath at rest. Pulmonary was consulted and recommended bronchoscopy with abnormal CT results. Patient declined intervention. Palliative care has meet with the patient and are investigate possible half-way/hospice bed at [facility]. (4) DVT prophylaxis Status: Acute Assessment and plan: - Continue to encourage ambulation - continue antiembolic stockings - continue heparin 5,000us SQ BID - Subjective Interval history: Mr. Leonard has been seen and evaluated at patient bedside this am. He is awake, alert and interactive. He says that he is more short of breath today and breathing faster. He denies any pain or discomfort. He has tolerated PO intake. He has no further complaints at this time. - Constitutional Vitals: Temp Pulse Resp BP Pulse Ox 97.9 F 105 22 109/71 95 07/12/16 16:00 07/12/16 16:00 07/12/16 16:00 07/12/16 16:00 07/12/16 16:00 General appearance: Present: cooperative, mild distress, A&O X 3 Exam: mild respiratory discomfort. - Head Head exam: Present: atraumatic, normocephalic - Eye Eye exam: Present: EOMI, PERRL - ENT ENT exam: Present: mucous membranes moist, normal exam - Neck Neck exam general surgery: Present: normal inspection, supple, trachea midline - Respiratory Additional comments: Patient is tacypnic, and has diffuse wheezing with tight breath sounds. She has diminished vesicular and bronchial breathsounds in all lung warner. - Cardiovascular Cardiovascular exam: Present: RRR, +S1, +S2 - GI/Abdominal GI/Abdominal exam: Present: normal bowel sounds, soft. Absent: tenderness - Extremities Exam Extremities exam: Present: warm, radial pulses palpable and symetrical. Absent : pedal edema - Psychiatric Psychiatric exam: Present: normal mood - Skin Skin exam: Present: warm Internal Medicine: Result - Labs CBC & Chem 7: 07/12/16 06:08 07/12/16 06:08 Labs: Short CBC 07/12/16 Range/Units 06:08 WBC 13.0 H (4.3-11.1) K/mcL Hgb 11.0 L (12.9-16.9) g/dL Hct 36.2 L (37.5-50.1) % Plt Count 204 (140-400) K/mcL Neutrophils # 8.7 (1.6-8.9) K/mcL BMP 07/12/16 06:08 Sodium 144 Potassium 4.4 Chloride 102 Carbon Dioxide 33 H BUN 23 Creatinine 1.20 Glucose 111 H Calcium 8.8 Liver Function 07/12/16 Range/Units 06:08 Total Bilirubin 0.4 (0.2-1.2) mg/dL AST 18 (5-34) Units/L ALT 25 (0-55) Units/L Alkaline Phosphatase 74 (38-126) Units/L Albumin 2.7 L (3.5-5.0) g/dL - ABG Interpretation ABG results: ABG ABG pH 7.46 pH Units (7.32-7.45) H 07/07/16 12:10 ABG pCO2 69 mmHg (35-45) H 07/07/16 12:10 ABG pO2 53 mmHg (85-104) L 07/07/16 12:10 ABG O2 Saturation 89 % (95-98) L 07/07/16 12:10 PT/INR, D-dimer PT 14.7 Seconds (9.4-12.1) H 06/28/16 21:37 - VTE Documentation of Mechanical Device: Graduated compression elastic hosiery Consult Discharge Plan - Plan Instructions: Acute Respiratory Distress Syndrome (DC), Urinary Tract Infection in Men (DC), Pneumonia (DC) Additional Instructions: Patient take medications as prescribed. Prescription for prednisone taper has been provided. Patient discharge was 7 L oxygen nasal cannula high flow. [facility]Primary Care Provider[facility] - 07/22/16 12:30 pm Prescriptions: PredniSONE 40 mg PO DAILY #11 tablet <Balta Garcia - Last Filed: 07/17/16 23:03> Date of Encounter: 07/17/16 - Assessment and plan (1) Sepsis Status: Acute Assessment and plan: 2/2 HCAP Improving. [facility] 06/29/16 WBC 24.5, Resp 30, HR 97, BP 106/63 06/30/16 WBC 9.4, resp 18, HR 100, BP 118/71 07/01/16 WBC 16.9 ( bump likely 2/2 steroids), resp 17, HR 105, BP 173/93 07/02/16 WBC 14.3 Resp 18, HR 99, BP 145/80 07/03/16 WBC 15.6 07/04/16 WBC 17.5 07/06/16 WBC 18.1 07/07/16 WBC 17.3 07/08/16 WBC 17.8 07/09/16 WBC 19.2 Leukocytosis likely result of steroid usage Blood cultures finalize and show no growth Sputum culture showed Pau albicans, likely contaminant monitor vitals and labs AntibioticsDiscontinued 07/08/16 - CTA performed yesterday evening shows no pulmonary embolism, Chest CTA 07/08/16 15:40 IMPRESSION: 1. No pulmonary embolus. Evaluation of the right segmental and subsegmental branches is limited due to motion. 2. Improved opacities in the right upper lobe and right base. Persistent consolidative, ground-glass, and reticular opacities are seen. Findings are compatible with improving pneumonia superimposed on chronic lung changes. 3. Resolved right pleural effusion. 4. Re-demonstration of fatty hypertrophy of the interatrial septum. 5. Severe emphysema. - WBC slightly up today - Noted that WBC count is 19.2 - patient continues to have tachycardia with stable blood pressures - antibiotics discontinued - renal function is within normal limits. - Continue current dose patient steroids - Patient refusing BiPAP and bronchoscopy - Spoke with patient legal guardian , he states he will be in today to discuss CODE STATUS with the patient 07/10/2016 spoke with legal guardian Mr Kennedy he will be here tomorrow 07/11/2016 Mr Kennedy was at bedside. informed patient at length regarding code status and all options at length in front of him and YESSICA Tariq. patient chose that his code status to be DNRCC code status updated in system Qualifiers: Sepsis type: sepsis due to unspecified organism Qualified Code(s): A41.9 - Sepsis, unspecified organism (2) Healthcare associated bacterial pneumonia Status: Acute (3) Anemia Status: Acute Qualifiers: Anemia type: other cause Other causes of anemia: chronic disease, other Qualified Code(s): D63.8 - Anemia in other chronic diseases classified elsewhere (4) Elevated troponin Status: Acute (5) DVT prophylaxis Status: Acute - Constitutional Vitals: Temp Pulse Resp BP Pulse Ox 97.9 F 105 22 109/71 95 07/12/16 16:00 07/12/16 16:00 07/12/16 16:00 07/12/16 16:00 07/12/16 16:00 Internal Medicine: Result - Labs CBC & Chem 7: 07/12/16 06:08 07/12/16 06:08 Labs: Short CBC 07/12/16 Range/Units 06:08 WBC 13.0 H (4.3-11.1) K/mcL Hgb 11.0 L (12.9-16.9) g/dL Hct 36.2 L (37.5-50.1) % Plt Count 204 (140-400) K/mcL Neutrophils # 8.7 (1.6-8.9) K/mcL BMP 07/12/16 06:08 Sodium 144 Potassium 4.4 Chloride 102 Carbon Dioxide 33 H BUN 23 Creatinine 1.20 Glucose 111 H Calcium 8.8 Liver Function 07/12/16 Range/Units 06:08 Total Bilirubin 0.4 (0.2-1.2) mg/dL AST 18 (5-34) Units/L ALT 25 (0-55) Units/L Alkaline Phosphatase 74 (38-126) Units/L Albumin 2.7 L (3.5-5.0) g/dL - ABG Interpretation ABG results: ABG ABG pH 7.46 pH Units (7.32-7.45) H 07/07/16 12:10 ABG pCO2 69 mmHg (35-45) H 07/07/16 12:10 ABG pO2 53 mmHg (85-104) L 07/07/16 12:10 ABG O2 Saturation 89 % (95-98) L 07/07/16 12:10 PT/INR, D-dimer PT 14.7 Seconds (9.4-12.1) H 06/28/16 21:37 - Attending Attestation I examined this patient and my medical decision-making was reviewed with the TRANSMISSION REPAIRER/PA/Advanced Practice Nurse/Resident Physician. I agree with the documented findings, disposition and treatment plan as described except to the extent set forth below.
[2016-07-12] MEDS: Albuterol 2.5 MG/3 ML NEBULIZER IH PRN (20:18)
[2016-07-13] MEDS: MethylPREDNISolone 40 MG/ML VIAL IVP SCH ×5 (00:01→23:45)
[2016-07-13] MEDS: Ipratropium/Albuterol Neb 3 ML IH SCH ×4 (04:44→22:40)
[2016-07-13] MEDS: *HR* Heparin 5,000 UNIT/ML VIAL SQ SCH ×2 (05:40→18:14)
[2016-07-13] MEDS: cloZAPine 100 MG TABLET PO SCH ×2 (09:07→23:04)
[2016-07-13] MEDS: Multivit/Ca/Min/Fe/FA 1 TAB TABLET PO SCH (09:08)
[2016-07-13] MEDS: lamoTRIgine 100 MG TABLET PO SCH (09:08)
[2016-07-13] MEDS: Loratadine 10 MG TABLET PO SCH (09:09)
[2016-07-13] MEDS: Famotidine 20 MG TABLET PO SCH ×2 (09:09→23:04)
[2016-07-13] MEDS: Cholecalciferol (D-3) 1,000 UNIT TABLET PO SCH (09:09)
[2016-07-13] MEDS: 0.9 % Sodium Chloride 1,000 ML IVC SCH (09:10)
--- NOTE | 2016-07-13 10:04 | Palliative Progress Note ---
Date of Encounter: 07/13/16 Time of Encounter: 10:00 - Assessment and plan (1) Dyspnea Current Visit: Yes Status: Acute Assessment and plan: Patient states this remains the same. Continues with high flow oxygen, nebs, steroids, Symbicort, antibiotics. Low dose Roxanol if needed for air hunger. Qualifiers: Dyspnea type: unspecified Qualified Code(s): R06.00 - Dyspnea, unspecified (2) Counseling regarding advanced care planning and goals of care Current Visit: Yes Status: Acute Assessment and plan: Patient still requiring high flow oxygen. He is agreeable to go to [place] for comfort care if needed. D/W Jamal Rosenberg, information has been faxed. Awaiting review. (3) Acute exacerbation of chronic obstructive pulmonary disease (COPD) Current Visit: Yes Status: Acute (4) Acute on chronic respiratory failure with hypoxemia Current Visit: Yes Status: Acute (5) Healthcare associated bacterial pneumonia Current Visit: Yes Status: Acute - Time Spent With Patient Total time spent is greater than 50% in coordination of care (as documented) at patient's floor/unit and/or counseling patient: 25 - 35 minutes - Subjective Interval history: Patient sitting up in bed - Flat affect, pleasant. Still states he feels short of breath at rest. States he has productive cough at times. Denies pain. Remains on 7L oxygen. - Constitutional Vitals: Abnormal lab results WBC 13.0 K/mcL (4.3-11.1) H 07/12/16 06:08 RBC 4.07 M/mcL (4.19-5.50) L 07/12/16 06:08 Hgb 11.0 g/dL (12.9-16.9) L 07/12/16 06:08 Hct 36.2 % (37.5-50.1) L 07/12/16 06:08 MCH 27.0 pg (28.0-33.3) L 07/12/16 06:08 MCHC 30.4 g/dL (31.6-35.5) L 07/12/16 06:08 RDW 18.5 % (11.5-14.5) H 07/12/16 06:08 Metamyelocytes % 2.0 % (0) H 07/07/16 08:00 Myelocytes % 1.0 % (0) H 07/07/16 08:00 Monocytes # 1.5 K/mcL (0.0-1.3) H 07/12/16 06:08 Nucleated RBCs/100 WBC 0.4 /100 WBC (0) H 07/04/16 05:20 Reactive Lymphocytes Present (Not Present) A 07/06/16 04:53 Toxic Granulation Present (Not Present) A 07/06/16 04:53 Toxic Vacuolation Present (Not Present) A 07/06/16 04:53 Polychromasia 1+ (Not Present) A 07/06/16 04:53 Hypochromasia Present (Not Present) A 07/02/16 02:30 Poikilocytosis 1+ (Not Present) A 07/06/16 04:53 Anisocytosis 1+ (Not Present) A 07/06/16 04:53 PT 14.7 Seconds (9.4-12.1) H 06/28/16 21:37 ABG pH 7.46 pH Units (7.32-7.45) H 07/07/16 12:10 ABG pCO2 69 mmHg (35-45) H 07/07/16 12:10 ABG pO2 53 mmHg (85-104) L 07/07/16 12:10 ABG HCO3 49.1 mEQ/L (21-27) H 07/07/16 12:10 ABG Total CO2 51.2 mEq/L (20-26) H 07/07/16 12:10 ABG O2 Saturation 89 % (95-98) L 07/07/16 12:10 ABG Base Excess 21.9 mEq/L (-2.0 to 3.0) H 07/07/16 12:10 Carbon Dioxide 33 mEq/L (19-29) H 07/12/16 06:08 Glucose 111 mg/dL (70-99) H 07/12/16 06:08 POC Glucose 130 (58-89) H 06/29/16 16:04 Calculated Osmolality 302 (280-300) H 07/12/16 06:08 Iron 22 mcg/dL (65-175) L 06/30/16 05:03 % Saturation 10 % (20-55) L 06/30/16 05:03 Transferrin 154 mg/dL (174-364) L 06/30/16 05:03 B-Natriuretic Peptide 128 pg/mL (0-100) H 06/28/16 21:37 Serum Total Protein 5.6 g/dL (6.0-8.3) L 07/12/16 06:08 Albumin 2.7 g/dL (3.5-5.0) L 07/12/16 06:08 Albumin/Globulin Ratio 0.9 (1.1-2.2) L 07/12/16 06:08 Vitamin B12 869 pg/mL (213-816) H 06/29/16 02:52 Urine Color [place] (Yellow) A 06/28/16 20:50 Ur Specific [place] 1.026 (1.010-1.025) H 06/28/16 20:50 Urine Protein 100 mg/dL (Neg-Trace) H 06/28/16 20:50 Urine Ketones Trace mg/dL (Negative) H 06/28/16 20:50 Urine Blood Moderate (Negative) H 06/28/16 20:50 Urine Bilirubin Moderate (Negative) H 06/28/16 20:50 Urine Urobilinogen 2.0 mg/dL (Normal) H 06/28/16 20:50 Ur Leukocyte Esterase Small (Negative) H 06/28/16 20:50 Urine Microscopic RBC 50-100 per hpf (0-3) H 06/28/16 20:50 Urine Microscopic WBC 5-15 per hpf (0-3) H 06/28/16 20:50 Amorphous Sediment Many (Few) H 06/28/16 20:50 Urine Bacteria Many per hpf (None-Few) H 06/28/16 20:50 Granular Casts Many per lpf (None Seen) H 06/28/16 20:50 Urine Mucus Moderate (Few) H 06/28/16 20:50 Ur Culture Indicated? YES (NO) A 06/28/16 20:50 General appearance: Present: no acute distress - Respiratory Additional comments: Few scattered rhonchi throughout. Breath sounds diminished bilateral lower lobes. - Cardiovascular Cardiovascular exam: Present: +S1, +S2 - GI/Abdominal GI/Abdominal exam: Present: normal bowel sounds, soft - Extremities Exam Extremities exam: Present: normal capillary refill, normal inspection - Neurological Exam Neurological exam: Present: alert, altered, strengths equal and symetr throughout - Skin Skin exam: Present: dry, pallor, warm Palliative Quality Palliative Quality: Screen for Code Status: Yes, Screen for Goals of Care: Yes, Screen for Pain: Yes, If Pain Regimen Started, Initiate Bowel Regimen: NA, Screen for Nausea/Vomitting: Yes Code Status: 07/06/16 17:07 CODE [Resuscitation Status: Active] [RES] Routine Comment: Resuscitation Status: DNR-Comfort Care 07/07/16 15:28 CODE [Resuscitation Status: Active] [RES] Routine Comment: Resuscitation Status: Full Code 07/11/16 17:30 CODE [Resuscitation Status: Active] [RES] Routine Comment: Resuscitation Status: DNR-Comfort Care - Labs CBC & Chem 7: 07/12/16 06:08 07/12/16 06:08 - ABG Interpretation ABG results: ABG ABG pH 7.46 pH Units (7.32-7.45) H 07/07/16 12:10 ABG pCO2 69 mmHg (35-45) H 07/07/16 12:10 ABG pO2 53 mmHg (85-104) L 07/07/16 12:10 ABG O2 Saturation 89 % (95-98) L 07/07/16 12:10 PT/INR, D-dimer PT 14.7 Seconds (9.4-12.1) H 06/28/16 21:37 Consult Discharge Plan - Plan Instructions: Acute Respiratory Distress Syndrome (DC), Urinary Tract Infection in Men (DC), Pneumonia (DC) [facility]Primary Care Provider[facility] - 07/22/16 12:30 pm
[2016-07-13] MEDS ORDERED: Morphine Oral CONC 5 MG/0.25 ML ORAL.SYG PO PRN (10:11)
[2016-07-13] MEDS: Budesonide/Formoterol 160/4.5 MDI IH SCH ×2 (10:40→22:41)
--- NOTE | 2016-07-13 17:23 | Internal Med Progress Note ---
<Chang Laughlin - Last Filed: 07/13/16 17:21> Date of Encounter: 07/13/16 Time of Encounter: 09:00 - Assessment and plan (1) Healthcare associated bacterial pneumonia Current Visit: Yes Status: Acute Assessment and plan: Patient is a resident of the [facility] with CXR demonstrating right middle and lower lobe pneumonia upon admission. Patients blood cultures were negative for growth. Antibiotics discontinued on 07/08/2016. Patients leukocytosis is trending down from admission Plan: - Continue current breathing treatments. - Continue to hold antibiotics at this time. (2) Acute exacerbation of chronic obstructive pulmonary disease (COPD) Current Visit: Yes Status: Acute Assessment and plan: Patient has demonstrates Acute respiratory failure with severe emphysema. Patient requires high flow oxygen at 5-7 liters. Plan: - Continue high flow oxygen to maintain oxygen saturations 88-93% - Continue scheduled breathing treatments with DuoNebs and respiratory inhalers. (3) Acute on chronic respiratory failure with hypoxemia Current Visit: Yes Status: Acute Assessment and plan: Patient demonstrated acute on chronic respiratory failure in the setting of HCAP and severe emphysema. Patient has required high flow oxygen to maintain oxygen saturations greater than 90% and demonstrates shortness of breath at rest. Pulmonary was consulted and recommended bronchoscopy with abnormal CT results. Patient declined intervention. Palliative care has meet with the patient and are investigate possible lobsterman/hospice bed at [facility]. 07/13/2016: Awaiting placement with [facility] for hospice care. No change in condition compared to yesterday. (4) DVT prophylaxis Current Visit: Yes Status: Acute Assessment and plan: - Continue to encourage ambulation - continue antiembolic stockings - continue heparin 5,000us SQ BID - Subjective Interval history: Mr. Leonard has been seen and evaluated at patient bedside this am. He is awake, alert and interactive. He says he is doing fine today and is just a little tired. He denies any pain, discomfort, chest pain or pressure. He maintains an appetite and is voiding appropriately. He has no further questions or concerns at this time. - Constitutional Vitals: Temp Pulse Resp BP Pulse Ox 98.3 F 97 18 114/64 96 07/13/16 15:31 07/13/16 15:31 07/13/16 15:31 07/13/16 15:31 07/13/16 15:31 General appearance: Present: cooperative, mild distress, A&O X 3 - Head Head exam: Present: atraumatic, normocephalic - Eye Eye exam: Present: PERRL, conjuntiva pink, sclera anicteric - ENT ENT exam: Present: mucous membranes moist - Neck Neck exam general surgery: Present: supple, trachea midline - Respiratory Additional comments: diffuse diminished breath sounds with expiratory wheeze more so in the lung bases. - Cardiovascular Cardiovascular exam: Present: RRR - GI/Abdominal GI/Abdominal exam: Present: normal bowel sounds, soft. Absent: tenderness - Extremities Exam Extremities exam: Present: warm, radial pulses palpable and symetrical. Absent : pedal edema, tenderness - Neurological Exam Neurological exam: Present: alert, no focal deficits - Psychiatric Psychiatric exam: Present: flat affect Internal Medicine: Result - Labs CBC & Chem 7: 07/12/16 06:08 07/12/16 06:08 - ABG Interpretation ABG results: ABG ABG pH 7.46 pH Units (7.32-7.45) H 07/07/16 12:10 ABG pCO2 69 mmHg (35-45) H 07/07/16 12:10 ABG pO2 53 mmHg (85-104) L 07/07/16 12:10 ABG O2 Saturation 89 % (95-98) L 07/07/16 12:10 PT/INR, D-dimer PT 14.7 Seconds (9.4-12.1) H 06/28/16 21:37 - VTE Documentation of Mechanical Device: Graduated compression elastic hosiery Consult Discharge Plan - Plan Instructions: Acute Respiratory Distress Syndrome (DC), Urinary Tract Infection in Men (DC), Pneumonia (DC) [facility]: [facility] Provider[facility] - 07/22/16 12:30 pm <Jeffrey Woodson - Last Filed: 07/13/16 18:33> Date of Encounter: 07/13/16 - Assessment and plan (1) Acute on chronic respiratory failure with hypoxemia Current Visit: Yes Status: Acute (2) Pneumonia Current Visit: Yes Status: Suspected Qualifiers: Pneumonia type: due to other aerobic Gram-negative bacteria Laterality: left Lung location: unspecified part of lung Qualified Code(s): J15.6 - Pneumonia due to other aerobic Gram-negative bacteria (3) Acute exacerbation of chronic obstructive pulmonary disease (COPD) Current Visit: Yes Status: Acute (4) Anemia Current Visit: Yes Status: Acute Qualifiers: Anemia type: other cause Other causes of anemia: chronic disease, other Qualified Code(s): D63.8 - Anemia in other chronic diseases classified elsewhere - Constitutional Vitals: Temp Pulse Resp BP Pulse Ox 98.3 F 97 18 114/64 96 07/13/16 15:31 07/13/16 15:31 07/13/16 16:16 07/13/16 15:31 07/13/16 16:16 Internal Medicine: Result - Labs CBC & Chem 7: 07/12/16 06:08 07/12/16 06:08 - ABG Interpretation ABG results: ABG ABG pH 7.46 pH Units (7.32-7.45) H 07/07/16 12:10 ABG pCO2 69 mmHg (35-45) H 07/07/16 12:10 ABG pO2 53 mmHg (85-104) L 07/07/16 12:10 ABG O2 Saturation 89 % (95-98) L 07/07/16 12:10 PT/INR, D-dimer PT 14.7 Seconds (9.4-12.1) H 06/28/16 21:37 - Attending Attestation I examined this patient and my medical decision-making was reviewed with the Resident Physician on 07/13/16. I agree with the documented findings, disposition and treatment plan as described except to the extent set forth below. Mr. Leonard is currently admitted for acute pneumonia and exac COPD with hypoxemia. He remains on high flow oxygen. There is plan for patient to be placed in [facility]. Mr. Leonard is resting comfortably. No new issues. Exam Alert. Heart reg Lungs with wheeze I/P 1. Acute hypoxic resp failure 2. Acute pneumonia - most likely gram neg 3. COPD Awaiting d/c plans to Hospice. Further diagnoses as above.
[2016-07-14] MEDS: Ipratropium/Albuterol Neb 3 ML IH SCH ×2 (04:39→10:35)
[2016-07-14] MEDS: *HR* Heparin 5,000 UNIT/ML VIAL SQ SCH (06:34)
[2016-07-14 08:08] VITALS: BP 110/71
[2016-07-14] MEDS: lamoTRIgine 100 MG TABLET PO SCH (09:31)
[2016-07-14] MEDS: Famotidine 20 MG TABLET PO SCH (09:32)
[2016-07-14] MEDS: Multivit/Ca/Min/Fe/FA 1 TAB TABLET PO SCH (09:32)
[2016-07-14] MEDS: Loratadine 10 MG TABLET PO SCH (09:32)
[2016-07-14] MEDS: cloZAPine 100 MG TABLET PO SCH (09:32)
[2016-07-14] MEDS: MethylPREDNISolone 40 MG/ML VIAL IVP SCH (09:33)
[2016-07-14] MEDS: Cholecalciferol (D-3) 1,000 UNIT TABLET PO SCH (09:34)
[2016-07-14] MEDS: Budesonide/Formoterol 160/4.5 MDI IH SCH (10:35)
--- NOTE | 2016-07-14 10:54 | Discharge Summary ---
<Chang Laughlin - Last Filed: 07/14/16 10:46> Date of Encounter: 07/14/16 Time of Encounter: 10:46 - Discharge Diagnosis (1) Healthcare associated bacterial pneumonia Priority: Primary Status: Acute (2) Acute exacerbation of chronic obstructive pulmonary disease (COPD) Priority: Primary Status: Acute (3) Acute on chronic respiratory failure with hypoxemia Priority: Primary Status: Acute (4) DVT prophylaxis Priority: Secondary Status: Acute - Discharge Medications Prescriptions: PredniSONE 40 mg PO DAILY #11 tablet Home Medications: Albuterol Sulfate [Albuterol Inhaler] 2 puff IH Q6HR PRN 06/29/16 [History] Atorvastatin Calcium [Lipitor] 20 mg PO DAILY 06/29/16 [History] Bisacodyl [Dulcolax] 10 mg PO 3XW MDD mon,,tue06/29/16 [History] Budesonide/Formoterol 160/4.5 [Symbicort 160/4.5] 2 puff IH BIDR 06/29/16 [ History] Cholecalciferol (D-3) [Vitamin D] 2,000 unit PO DAILY 06/29/16 [History] CloZAPine [Clozaril] 300 mg PO HS 06/29/16 [History] CloZAPine [Clozaril] 400 mg PO QAM 06/29/16 [History] Docusate Sodium 100 mg PO BID 06/29/16 [History] GuaiFENesin/Dextromethorphan [Eql Tussin Dm Max Liquid] 10 ml PO Q4H PRN [History] Guaifenesin 200 mg PO QID 06/29/16 [History] Lamotrigine [Lamictal] 75 mg PO BID 06/29/16 [History] Loratadine [Allergy Relief] 10 mg PO DAILY 06/29/16 [History] Multivitamin [One Daily Essential] 1 tab PO QAM 06/29/16 [History] Oxazepam [Serax] 10 mg PO BID 06/29/16 [History] Potassium Chloride [Klor-Con 10] 30 meq PO DAILY 06/29/16 [History] Sertraline [Zoloft] 150 mg PO QAM 06/29/16 [History] Tiotropium [Spiriva] 18 mcg IH DAILY 06/29/16 [History] PredniSONE 40 mg PO DAILY #11 tablet 07/14/16 [Rx] Allergies/Adverse Reactions: Allergies chlorpromazine Adverse Reaction (Verified 06/28/16 20:23) See Comments Ether Adverse Reaction (Verified 06/28/16 20:23) See Comments Date of admission: 06/29/16 04:37 Primary care physician: PCP [facility] Consults: 06/30/16 08:54 Consult to Pastoral Services [CONS] Routine Comment: 07/03/16 10:22 Consult to Pulmonology [CONS] Routine Consulting Provider: [facility] [place] Reason for Consult: Worsening HCAP Call Completed: Yes 07/12/16 15:30 Consult to Palliative Care [CONS] Routine Comment: Consulting Provider: Palliative Care [place] 07/13/16 09:13 Consult to Invasive Line Access Team [CONS] Routine Reason for Consult: POOR VENOUS ACCESS Line Type: EPIV 07/13/16 09:16 Consult to Occupational Therapy [CONS] Routine Comment: Evaluate, develop and implement POC Consult to Physical Therapy [CONS] Routine Comment: Evaluate, develop and implement POC Discharging clinician: Chang Laughlin Anticipated date of discharge: 07/14/16 - Patient Status Disposition: Transfer Intermediate Care Fac Condition: Fair Functional capacity at discharge: uses cane/walker Overall status at discharge: other (Patient stable) - Discharge Instructions Instructions: Acute Respiratory Distress Syndrome (DC), Urinary Tract Infection in Men (DC), Pneumonia (DC) [facility] - 07/22/16 12:30 pm Additional Instructions: Patient take medications as prescribed. Prescription for prednisone taper has been provided. Patient discharge was 7 L oxygen nasal cannula high flow. - Diet and Activity Activity: as per physical therapy, wear oxygen at all times Diet: advance to your usual diet Hospital course: Mr. Leonard is a 66 year old male - Time Spent with Patient Total time spent providing and/or coordinating discharge services: - Constitutional Vitals: Temp Pulse Resp BP Pulse Ox 97.9 F 100 22 110/71 90 L 07/14/16 08:00 07/14/16 08:00 07/14/16 10:38 07/14/16 08:00 07/14/16 10:38 General appearance: Present: cooperative, mild distress, A&O X 3 - Head Head exam: Present: atraumatic, normocephalic - Eye Eye exam: Present: PERRL, conjuntiva pink, sclera anicteric - ENT ENT exam: Present: mucous membranes moist - Neck Neck exam general surgery: Present: supple, trachea midline - Respiratory Additional comments: diffuse restricted breath sounds both inspiratory and expiratory. - Cardiovascular Cardiovascular exam: Present: RRR - GI/Abdominal GI/Abdominal exam: Present: normal bowel sounds, soft - Extremities Exam Extremities exam: Present: warm. Absent: pedal edema, tenderness - Neurological Exam Neurological exam: Present: alert, no focal deficits - Psychiatric Psychiatric exam: Present: flat affect - Skin Skin exam: Present: intact, warm - VTE Documentation of Mechanical Device: Graduated compression elastic hosiery <Jeffrey Woodson - Last Filed: 07/14/16 16:32> Date of Encounter: 07/14/16 - Discharge Diagnosis (1) Acute on chronic respiratory failure with hypoxemia Status: Acute (2) Pneumonia Priority: Secondary Status: Suspected Qualifiers: Pneumonia type: due to other aerobic Gram-negative bacteria Laterality: left Lung location: unspecified part of lung Qualified Code(s): J15.6 - Pneumonia due to other aerobic Gram-negative bacteria (3) Acute exacerbation of chronic obstructive pulmonary disease (COPD) Priority: Primary Status: Acute (4) Anemia Priority: Secondary Status: Acute Qualifiers: Anemia type: other cause Other causes of anemia: chronic disease, other Qualified Code(s): D63.8 - Anemia in other chronic diseases classified elsewhere Date of admission: 06/29/16 04:37 Primary care physician: [facility]CP [facility] Consults: 06/30/16 08:54 Consult to Pastoral Services [CONS] Routine Comment: 07/03/16 10:22 Consult to Pulmonology [CONS] Routine Consulting Provider: [facility] [place] Reason for Consult: Worsening HCAP Call Completed: Yes 07/12/16 15:30 Consult to Palliative Care [CONS] Routine Comment: Consulting Provider: [facility] [place] 07/13/16 09:13 Consult to Invasive Line Access Team [CONS] Routine Reason for Consult: POOR VENOUS ACCESS Line Type: EPIV 07/13/16 09:16 Consult to Occupational Therapy [CONS] Routine Comment: Evaluate, develop and implement POC Consult to Physical Therapy [CONS] Routine Comment: Evaluate, develop and implement POC Hospital course: Mr. Leonard is a 66 year old male - Time Spent with Patient Total time spent providing and/or coordinating discharge services: 34min - Constitutional Vitals: Temp Pulse Resp BP Pulse Ox 97.9 F 100 22 110/71 92 L 07/14/16 08:00 07/14/16 10:31 07/14/16 10:38 07/14/16 10:31 07/14/16 11:21 - Attending Attestation I examined this patient and my medical decision-making was reviewed with the Resident Physician on 07/14/16. I agree with the documented findings, disposition and treatment plan as described except to the extent set forth below. Mr. Leonard is comfortable at this time. He is to go to Hospice today. Exam Alert. Not tachycardic. Lungs diminished. Plan D/C to Hospice today.
== END 2016-07-14 12:15 | DRG 871 ==
LOC: 2NENU 20:19 → EMEROO 20:19 → 2NENU 06-29 01:12 → SUATTDRO 06-29 04:37 → 2NENU 06-29 11:59
PROVIDERS: ADMIT Nurse Practitioner Family; ATTEND Internal Medicine